=== PATIENT | male | born 1945 | race Caucasian/White ===

== ENCOUNTER 2021-07-06 14:05 | Emergency (ER) | payer MEDICARE, OTHER ==
[~2021-07-06] VITALS: Ht 172.7 cm; Wt 85.4 kg
--- OUTSIDE RECORDS SUMMARY | 2021-07-06 14:37 | XMS REPORT | Encounter Summary ---
Author Author [facility] FILIPE gallegos Organization [facility] Address Unknown Phone Unavailable Care Team Providers Care Synoptic Meteorologist Name Role Phone NOLVIA NOEL PCP Unavailable Insurance Providers: All historical and current Section Date Range: From patient's date of to the date document was create d. This section includes the names of all active insurance providers for the janie nguyen Insurance Provider Type of Coverage Plan Name Start of Policy [place] End of Policy Coverage Group Number Member ID Insurance Provider's Telephone N umber Policy Cedillo's Name Patient's Relationship to Policy Cedillo [facility] PLAN B Nov 13, 2001 [id number] [phone] MARELY FARRELL SPOUSE [place] ([id number]) PRESCRIPTION [place] [employer] Mar 05, 2003 [id number] [phone] MARELY FARRELL SPOUSE [place] [employer] [facility] Mar 05, 2003 [id number] [phone] MARELY FARRELL SPOUSE MEDICARE (WNR) MEDICARE (M) PART A Sep 13, 2001 PART A [id number] [phone] FILIPE FARRELL PATIENT MEDICARE (WNR) MEDICARE (M) PART B Sep 13, 2001 PART B [id number] [phone] FILIPE FARRELL PATIENT MEDICARE (WNR) MEDICARE (M) PART A Sep 13, 2001 PART A [id number] [phone] HAYES FARRELLY PATIENT MEDICARE (WNR) MEDICARE (M) PART B Sep 13, 2001 PART B [id number] [phone] FILIPE FARRELL PATIENT MEDICARE (WNR) MEDICARE (M) PART A Sep 13, 2001 PART A [id number] [phone] FILIPE FARRELL PATIENT MEDICARE (WNR) MEDICARE (M) PART B Sep 13, 2001 PART B [id number] [phone] FILIPE FARRELL PATIENT Selected Encounter This section includes the information on record at [place] for the Encounter. Date/Time Encounter Type Encounter Description Reason Provider Source Jul 06, 2021 11:00 AM Outpatient [facility] Encounter Template Text not used by [place] Assessments - Encounter Diagnoses No Data Provided for This Section Plan of Treatment: Future Appointments (+ 6 months) and Future Tests (+/- 45 day s) The Plan of Treatment section includes future care activities for the patient fr om all [place] treatment facilities. This section includes future appointments and fu ture orders which are active, pending or scheduled. Future Appointments This section includes appointments that were scheduled t o occur 6 months from the date of the Encounter, up to a maximum of 20 appointme nts. The data comes from all [place] treatment [facility]. Appointment Date/Time Appointment Type Appointment Facili ty Name Jul 07, 2021 03:30 PM AMBULATORY - MEDICINE [facility] Surgical Procedures: All associated to the encounter No Data Provided for This Section Lab Results: +/- 30 days of the encounter No Data Provided for This Section Vital Signs: All taken on the encounter date This section contains inpatient and outpatient Vital Signs collected on the date of the Encounter. Date/Time Temperature Pulse Blood Pressure Respiratory Rate SP02 Pa in Height Weight Body Mass Index Source Jul 06, 2021 09:13 AM 8 [facility] Immunizations: All administered on the encounter date No Data Provided for This Section Social History: Smoking Status (Most current) and Tobacco Use (All prior to enco unter date) This section includes the most current, and the historical, smoking and tobacco- related health factors from the [place] facility where the Encounter took place. Current Smoking Status This section includes the most current smoking, or tobacco -related health factor, from the [place] facility where the Encounter took place. Date/Time Current Smoking Status Comment Facility Jul 06, 2021 11:00 AM MS-TOBACCO FORMER USER [facility] Tobacco Use History This section includes a history of the smoking, or tobacco -related health factors, that were collected on or before the date of the Encoun ter. The data comes from the [place] facility where the Encounter took place. Date/Time Smoking Status/Tobacco Use Comment Facil rodgery Jul 06, 2021 11:00 AM VA-TOBACCO QUIT 15 YRS OR MORE [facility] Apr 14, 2020 12:03 PM V16 TOBACCO USE SCREEN [facility] Apr 14, 2020 12:03 PM VA-TOBACCO FORMER USER [facility] Apr 14, 2020 12:03 PM VA-TOBACCO QUIT 15 YRS OR MORE [facility] April 09, 2019 10:21 AM V16 TOBACCO [facility]CREEN [facility] April 09, 2019 10:21 AM VA-TOBACCO FORMER USER [facility] April 09, 2019 10:21 AM MS-TOBACCO QUIT 15 YRS OR MORE [facility] Advance Directives: All historical and current No Data Provided for This Section Radiology Reports: +/- 30 days of the encounter No Data Provided for This Section Pathology Reports: +/- 30 days of the encounter No Data Provided for This Section Encounter Notes: All associated encounter notes This section contains the clinical notes associated to the Encounter. Date/Time Encounter Note(s) Provider Source Jul 05, 2021 03:15 PM ADMINISTRATIVE NOTE: LOCAL TITLE: SCHEDULING NOTE STANDARD TITLE: ADMINISTRATIVE NOTE DATE OF NOTE: JUL 05, 2021@15:15 ENTRY DATE: JUL 05, 2021@15:15:15 AUTHOR: OMARI LADD COSIGNER: URGENCY: STATUS: COMPLETED [place] was called in relation to 07/06 appointment change of appt modality. He was left a Voicemail requsting call back for this request change to #Tele /es/ OMARI LADD [facility] Signed: 07/05/2021 15:16 [facility]MARI LADD [facility]
--- OUTSIDE RECORDS SUMMARY | 2021-07-06 14:37 | XMS REPORT | Encounter Summary ---
Author Author Department [facility] FILIPE gallegos Organization Department [facility] Address Unknown Phone Unavailable Care Team Providers Care Turbogenerator Operator Name Role Phone NOLVIA NOEL PCP Unavailable [...] Cedillo's Name Patient's Relationship to Policy Ced[facility] PLAN B Nov 13, 2001 [id number] [phone] MAURA FARRELL SPOUSE [place] ([id number]) PRESCRIPTION [place] EMPLOYEE Mar 05, 2003 [id number] [phone] MAURA FARRELL SPOUSE [place] [facility]ANCE [facility] Mar 05, 2003 [id number] [id number] [phone] MAURA FARRELL SPOUSE MEDICARE (WNR) MEDICARE (M) PART A Sep 13, 2001 PART A [id number] [phone] FIILPE FARRELL PATIENT MEDICARE (WNR) MEDICARE (M) PART B Sep 13, 2001 PART B [id number] 42A [phone] HAYES FARRELLY PATIENT MEDICARE (WNR) MEDICARE (M) PART A Sep 13, 2001 PART A [id number] [phone] BUDHAYESY PATIENT MEDICARE (WNR) MEDICARE (M) PART B Sep 13, 2001 PART B [id number] 42A [phone] FILIPE FARRELL PATIENT MEDICARE (WNR) MEDICARE (M) PART A Sep 13, 2001 PART A [id number] 42A [phone] FILIPE FARRELL PATIENT MEDICARE (WNR) MEDICARE (M) PART B Sep 13, 2001 PART B [id number] [phone] FILIPE FARRELL PATIENT Selected Encounter This section includes the information on record at [place] for the Encounter. Date/Time Encounter Type Encounter Description Reason Provider Source Jul 06, 2021 11:00 AM Outpatient Encounter TELEPHONE ICD-1 0-CM F43.12 Post- traumatic stress disorder, chronic with Provider Comments: Chronic post- traumatic stress disorder (SNOMED CT 976583059) TOD SCHNEIDER Elizabeth Encounter Template Text not used by MS Assessments - Encounter Diagnoses This section includes the primary and secondary diag noses documented for the Encounter. Date/Time Primary/Secondary Diagnosis Diagnosis Name Provider Source Jul 06, 2021 11:00 AM PRIMARY Post-traumatic stress diso rder, chronic TOD SCHNEIDER [facility] Jul 06, 2021 11:00 AM SECONDARY Major depressive d isorder, recurrent, [facility] Plan of Treatment: Future Appointments (+ 6 [...] The data comes from all [place] treatment facilities. Appointment Date/Time Appointment Type Appointment Facili ty Name Jul 07, 2021 03:30 PM AMBULATORY - MEDICINE [facility] Surgical Procedures: All associated to the encounter [...] Index Source Jul 06, 2021 09:[address] [place] [address] Immunizations: All administered on the encounter date [...] Comment Facility Jul 06, 2021 11:00 AM VA-TOBACCO FORMER USER [facility] Tobacco Use History This section includes a history of the smoking, or tobacco -related health factors, that were collected on or before the date of the Encoun ter. The data comes from the [place] facility where the Encounter took place. Date/Time Smoking Status/Tobacco Use Comment [facility] Jul 06, 2021 11:00 AM VA-TOBACCO QUIT 15 YRS OR MORE [facility] Apr 14, 2020 12:03 PM V16 TOBACCO USE [facility] Apr 14, 2020 12:03 PM VA-TOBACCO FOR[facility] Apr 14, 2020 12:03 PM VA-TOBACCO QUIT 15 YRS OR MORE [facility] April 09, 2019 10:21 AM V16 TOBACCO [facility]CREEN [facility] April 09, 2019 10:21 AM VA-TOBACCO FORMER USER [facility] April 09, 2019 10:21 AM VA-TOBACCO QUIT 15 YRS OR MORE [facility] Advance Directives: All historical and current No Data Provided for This Section Radiology Reports: +/- 30 days of the encounter No Data Provided for This Section Pathology Reports: +/- 30 days of the encounter No Data Provided for This Section Encounter Notes: All associated encounter notes This section contains the clinical notes associated to the Encounter. Date/Time Encounter Note(s) Provider Source Jul 06, 2021 11:00 AM PSYCHIATRY TELEPHONE ENCOUNT ER NOTE: LOCAL TITLE: TELECARE-PSYCHIATRY STANDARD TITLE: PSYCHIATRY TELEPHONE ENCOUNTER NOTE DATE OF NOTE: JUL 06, 2021@11:00 ENTRY DATE: JUL 06, 2021@11:16:06 AUTHOR: TOD SCHNEIDER COSIGNER: URGENCY: STATUS: COMPLETED PATIENT NAME: FILIPE FARRELL SSN: [id number] FUTURE APPOINTMENTS: No Scheduled Appointments at this time. PATIENT'S HOME PHONE: REASON FOR CALL: f/u DIAGNOSIS: ptsd TIME: 1100 PSYCHIATRIC PROGRESS NOTE Patient Identifiers: [x] Name [x] SS# [x] CC: PTSD INTERVAL HISTORY AND CURRENT ISSUES: 76 year old MALE is interviewed in f/u c are over telephone due to COVID precautions. 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 He reports compliance with psychotropic medication over the interim, tolerating sertraline well. Continues to feel it helps maintain stable mood and anxiety. He has had COVID 19 vaccination, and is not as isolative as he had been last through the past year. His daughter had come to visit, and he had driven her back to the airport in [place] several weeks ago. He feels he is sleeping well, tolerating stressors well and in good spirits. He is reporting pain in rt lower leg worse when ambulating that has started about 4-5 days ago and worsening. This was passed along to primary care team by MH nurse, and need to f/u on this was re-emphasized by the author. He feels everything is going relatively well, does not think needs any changes in MH treatment plan at this time. Denies SI, HI ,AVH or sxs of bon. Past, Family, and Social History: Originally from [facility] [facility]. 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 He is > 40 yrs , has adult children. Lives in own home in [place]. Active Outpatient Medications (excluding Supplies): Active Outpatient Medications Status 1) ACCU-CHEK GUIDE (GLUCOSE) TEST STRI P USE 1 STRIP FOR ACTIVE TESTING TWICE A DAY TO TEST BLOOD GLUCOSE 2) ACCU-CHEK GUIDE ME GLUCOMETER USE A S DIRECTED ACTIVE 3) ACCU-CHEK GUIDE(GLUCOSE)HI/LO CNTRL SOLN USE DROP(S) ACTIVE DIRECTED TO CALIBRATE GLUCOMETER 4) AMLODIPINE 5MG TAB TAKE ONE-HALF T ABLET BY MOUTH ACTIVE ONCE DAILY -DO NOT TAKE WITH GRAPEFRUIT JUICE- FOR BLOOD PRESSURE 5) ATENOLOL 50MG TAB TAKE ONE TABLET BY MOUTH ONCE ACTIVE DAILY FOR BLOOD PRESSURE / HEART 6) CHOLECALCIF 25MCG (D3-1,000UNIT) TA B TAKE TWO TABLETS ACTIVE BY MOUTH ONCE DAILY 7) CLOBETASOL PROPIONATE 0.05% OINT AP PLY SMALL AMOUNT ACTIVE TOPICALLY ONCE DAILY APPLY TO AFFECTED AREA UNTIL HEALED 8) GABAPENTIN 300MG CAP TAKE THREE CAP SULES BY MOUTH AT ACTIVE BEDTIME -(MAY CAUSE DROWSINESS) 9) INSULIN GLARGINE U-100 10ML/VIAL IN JECT 42 UNITS ACTIVE SUBCUTANEOUSLY AT BEDTIME FOR DIABETES (SHIP REFRIGERATED) 10) LISINOPRIL 5MG TAB TAKE ONE TABLET BY MOUTH EVERY ACTIVE MORNING FOR BLOOD PRESSURE TO PROTECT KIDNEYS 11) MAGNESIUM OXIDE 420MG TAB TAKE ONE TABLET BY MOUTH AT ACTIVE BEDTIME TAKE WITH FOOD 12) ROSUVASTATIN CA 40MG TAB TAKE ONE T ABLET BY MOUTH AT ACTIVE (S) BEDTIME FOR CHOLESTEROL REDUCTION 13) SERTRALINE 100MG TAB TAKE ONE AND O NE-HALF TABLETS BY ACTIVE MOUTH AT BEDTIME FOR DEPRESSION AND NERVES. Active Non-VA Medications Status 1) Non-VA ASPIRIN 325MG EC TAB 325MG M OUTH ONCE DAILY ACTIVE 2) Non-VA GLUCOSAMINE CAP/TAB ACTIVE 3) Non-VA MULTIVITAMINS TAB MOUTH ONC E DAILY ACTIVE 16 Total Medications Allergies: PENICILLIN, DOXEPIN, METFORMIN REVIEW OF SYSTEMS: Chronic back pain, lower leg pain MENTAL STATUS EXAM: Patient is an adult male. He is alert and oriented x3. Cooperative with the exam. Verbal affect is congruent with stated mood Speech is fluent, at normal rate and rhythm, non-pressured. Thought processes are grossly organized, logical and appopriate to topic. Denies any active suicidal ideation, hallucinations, or delusional beliefs. Intelligence appears to be average, insight adequate for the situation. Concentration and memory are grossly intact. . DIAGNOSIS (DSM-5): Chronic PTSD Depression Lab: [x ] N/A [ ] Results pending [ ] Reviewed with [ ] Ordered for next visit Suicide Risk Assessment: [x ] Completed Today [ ] Due ASSESSMENT OF TREATMENT EFFECTIVENESS AND TREATMENT PLAN: Patient with chronic anxiety/depressive sxs, fairly stable mood/anxiety over the interim - Will continue current med regimen to s upport ongoing stabilizing benefits. - Encouraged ongoing efforts in therapeu tic activities - Advised to contact primary care team i f not contacted by them this afternoon, in regards to possible DVT FOLLOWUP: 3 months Supportive therapy and education given regarding medications and stressors. Total time in teleconference, E/M; 25 minutes /anisa/ TOD SCHNEIDER PSYCHIATRIST Signed: 07/06/2021 13:50 TOD SCHNEIDER [facility] Jul 06, 2021 11:00 AM MEDICATION MGT NOTE: LOCAL TITLE: MEDICATION RECONCILIATION (PROVIDER) STANDARD TITLE: MEDICATION MGT NOTE DATE OF NOTE: JUL 06, 2021@11:00 ENTRY DATE: JUL 06, 2021@13:51:11 AUTHOR: TOD SCHNEIDER EXP COSIGNER: URGENCY: STATUS: COMPLETED Medication Reconciliation COMPLETED (Outpatient): NO medication additions, deletions, dosage changes OR duplications were identified. This Medication Reconciliation note and Patient Medication Information Cover Sheet were reviewed with the patient and/or caregiver and all questions answered. A copy of this note was given to or mailed to patient and/or caregiver at the end of this visit. Remote and Local Allergies: FACILITY ALLERGY/ADR -------- [facility] DOXEPIN [facility] METFORMIN [facility] PENICILLIN [facility] NO KNOWN ALLERGIES A list of active and pending outpatient prescriptions dispensed from this local MS and dispensed remotely from another MS or DoD facility as well as local, pending and active inpatient orders, local clinic medications, locally documented non-VA medications, and local prescriptions that have or been discontinued in the past 90 days has been generated below. If the list for review does not include a component, then it was not applicable to this patient. Active Outpatient Medications (excluding Supplies): Active Outpatient Medications Status 1) ACCU-CHEK GUIDE (GLUCOSE) TEST STRIP USE 1 STRIP FOR ACTIVE TESTING TWICE A DAY TO TEST BLOOD GLUCOSE 2) ACCU-CHEK GUIDE ME GLUCOMETER USE DIRECTED ACTIVE 3) ACCU-CHEK GUIDE(GLUCOSE)HI/LO CNTRL SOLN USE DROP(S) ACTIVE DIRECTED TO CALIBRATE GLUCOMETER 4) AMLODIPINE 5MG TAB TAKE ONE-HALF TABLET BY MOUTH ACTIVE (S) ONCE DAILY -DO NOT TAKE WITH GRAPEFRUIT JUICE- FOR BLOOD PRESSURE 5) ATENOLOL 50MG TAB TAKE ONE TABLET BY MOUTH ONCE ACTIVE (S) DAILY FOR BLOOD PRESSURE / HEART 6) CHOLECALCIF 25MCG (D3-1,000UNIT) TAB TAKE TWO TABLETS ACTIVE BY MOUTH ONCE DAILY 7) CLOBETASOL PROPIONATE 0.05% OINT APPLY SMALL AMOUNT ACTIVE TOPICALLY ONCE DAILY APPLY TO AFFECTED AREA UNTIL HEALED 8) GABAPENTIN 300MG CAP TAKE THREE CAPSULES BY MOUTH AT ACTIVE BEDTIME -(MAY CAUSE DROWSINESS) 9) INSULIN GLARGINE U-100 10ML/VIAL INJECT 42 UNITS ACTIVE (S) SUBCUTANEOUSLY AT BEDTIME FOR DIABETES (SHIP REFRIGERATED) 10) LISINOPRIL 5MG TAB TAKE ONE TABLET BY MOUTH EVERY ACTIVE MORNING FOR BLOOD PRESSURE TO PROTECT KIDNEYS 11) MAGNESIUM OXIDE 420MG TAB TAKE ONE TABLET BY MOUTH AT ACTIVE BEDTIME TAKE WITH FOOD 12) ROSUVASTATIN CA 40MG TAB TAKE ONE TABLET BY MOUTH AT ACTIVE (S) BEDTIME FOR CHOLESTEROL REDUCTION 13) SERTRALINE 100MG TAB TAKE ONE AND ONE-HALF TABLETS BY ACTIVE MOUTH AT BEDTIME FOR DEPRESSION AND NERVES. Active Non-VA Medications Status 1) Non-VA ASPIRIN 325MG EC TAB 325MG MOUTH ONCE DAILY ACTIVE 2) Non-VA GLUCOSAMINE CAP/TAB ACTIVE 3) Non-VA MULTIVITAMINS TAB MOUTH ONCE DAILY ACTIVE 16 Total Medications No Active Remote Medications for this patient /es/ OTD SCHNEIDER PSYCHIATRIST Signed: 07/06/2021 13:51 TOD SCHNEIDER [facility] Jul 06, 2021 11:00 AM SUICIDE PREVENTION RISK ASSE SSMENT SCREENING NOTE: LOCAL TITLE: SUICIDE RISK SCREENER-SECONDARY STANDARD TITLE: SUICIDE PREVENTION RISK ASSESSMENT SCREENING NOT DATE OF NOTE: JUL 06, 2021@11:00 ENTRY DATE: JUL 06, 2021@13:51:48 AUTHOR: TOD SCHNEIDER EXP COSIGNER: URGENCY: STATUS: COMPLETED [place]-Suicide Severity Rating Scale (C-SSRS Screener) 1. Over the past month, have you wished you were or wished you could go to sleep and not wake up? No 2. Over the past month, have you had any actual thoughts of killing yourself? No 3. Over the past month, have you been thinking about how you might do this? Response not required due to responses to other questions. 4. Over the past month, have you had these thoughts and had some intention of acting on them? Response not required due to responses to other questions. 5. Over the past month, have you started to work out or worked out the details of how to kill yourself? Response not required due to responses to other questions. 6. If yes, at any time in the past month did you intend to carry out this plan? Response not required due to responses to other questions. 7. In your lifetime, have you ever done anything, started to do anything, or prepared to do anything to end your life (for example, collected pills, obtained a gun, gave away valuables, went to the roof but didn't jump)? No 8. If YES, was this within the past 3 months? Response not required due to responses to other questions. /anisa/ TOD SCHNEIDER PSYCHIATRIST Signed: 07/06/2021 13:52 TOD SCHNEIDER [facility] Jul 06, 2021 10:11 AM ADMINISTRATIVE NOTE: LOCAL TITLE: HIPAA PRIVACY RELEASE STANDARD TITLE: ADMINISTRATIVE NOTE DATE OF NOTE: JUL 06, 2021@10:11 ENTRY DATE: JUL 06, 2021@10:11:59 AUTHOR: YARY BARRERA EXP COSIGNER: URGENCY: STATUS: COMPLETED Verbal consent obtained. Date: Jun This release is in effect for a period of 1 year. The following type of information may be discussed: appointment information, lab results, plan of care, treatment options, test results, condition , diagnosis, list of medications, address/phone number/emergency contact in case home care is to be provided People authorized to receive above information: Maura Farrell () [phone] Amanda Ortiz (daughter) [phone] I give permission to provide medical information, my home address, and my phone number in the coordination of my home health care: YES I give permission for message (including medical information) to be left on my answering machine: Yes /es/ YARY BARRERA RN PRIMARY CARE REGISTERED NURSE-SLAVA Signed: 07/06/2021 10:13 YARY BARRERA [facility] Jul 06, 2021 08:58 AM MENTAL HEALTH NURSING NOTE: LOCAL TITLE: MENTAL HEALTH NURSE INTAKE STANDARD TITLE: MENTAL HEALTH NURSING NOTE DATE OF NOTE: JUL 06, 2021@08:58 ENTRY DATE: JUL 06, 2021@08:58:53 AUTHOR: YARY BARRERA EXP COSIGNER: URGENCY: STATUS: COMPLETED MENTAL HEALTH NURSE INTAKE Has ADDENDA SUBJECTIVE:Pre telephone appt call for for MH Intake. is alert, oriented and pleasant. Denies HI/SI. [place] is c/o pain in the right LE from the knee down to the ankle for the past 4 days. Worse when he gets up and walks on it. No know injury. Denies any lumps/bumps or raised areas and denies redness or warmth on the leg, but states "I don't know what it is, sometimes it feels like a I have a bug on my leg, but then there is nothing there." reports he does have some swelling in the ankle area that is new. A call was placed to [facility] and requested a call to the regarding c/o. Will alert both Ernst De La Fuente and Marquise on this note for f/u with . The [place]'s phone number and address:[address] [place] [address] [address], [facility]. The 's present location:home The 's emergency contact name and phone number:Maura (spouse) same number has verbally consented to telehealth; alternatives for obtaining care through in-person visit and right of refusal at any time have been explained. agreed to services today. Coronavirus Disease 2019 (COVID-19) Screen The patient was asked if in the last 14 days they have had new onset of any COVID-19 symptoms. They report the following: No symptoms Within the past 14 days, the patient reports no exposure to someone with a febrile/respiratory illness or someone with a known or suspected case of COVID-19 (within 6 feet for > 15 minutes). Result: Screen is negative. Educated the regarding good handwashing, social distancing and avoid going out unless absolutely necessary to avoid possibilty of exposure to the Virus.[place] voiced understanding and is agreeable with the plan. BP: 138/63 (02/02/2021 11:07) Pain: 6 (02/02/2021 11:49) Height: 68 in [172.7 cm] (02/02/2021 11:07) Weight: 197 lb [89.5 kg] (02/02/2021 11:07) Pulse: 56 (02/02/2021 11:07) Respiration: 18 (02/02/2021 11:07) Temperature: 97.5 F [36.4 C] (02/02/2021 11:07) ALLERGIES:PENICILLIN, DOXEPIN, METFORMIN DEPRESSION SCREEN: ()Positive (x)Negative If positive, ()New/Untreated Depression SUICIDAL: (x)No ()Yes If Yes, does patient have a plan? ()Yes ()No PAIN: []No [x]Yes []Chronic or []Acute; Present Pain Level: 8 ) Comfort Level Scale (0-10):2 TOBACCO: (x)No ()Yes-Counseled for cessation. Has the patient traveled outside the [place] within the past 30 days? No If yes, where has the patient traveled? DIAGNOSIS: MH Intake TIME: 858 Organ Donor (Nurse): Patient states he/she is not currently registered with a Regional Organ Recovery Agency. Patient declines to be an organ donor. PTSD Screening: PC-PTSD-5 A PTSD screening test (PC-PTSD-5) was negative (score=2). Have you ever had any experience that was so frightening, horrible or upsetting that, IN THE PAST MONTH, you: Have you ever experienced this kind of event? YES 1. Had nightmares about the event(s) or thought about the event(s) when you did not want to? NO 2. Tried hard not to think about the event(s) or went out of your way to avoid situations that reminded you of the event(s)? YES 3. Been constantly on guard, watchful, or easily startled? YES 4. Somers numb or detached from people, activities, or your surroundings? NO 5. [place] guilty or unable to stop blaming yourself or others for the event(s) or any problems the event(s) may have caused? NO Alcohol Use Screen (AUDIT-C): Alcohol Screen: SCREEN FOR ALCOHOL (AUDIT-C) An alcohol screening test (AUDIT-C) was negative (score=1). 1. How often did you have a drink containing alcohol in the past year? Monthly or less 2. How many drinks containing alcohol did you have on a typical day when you were drinking in the past year? One or two drinks 3. How often did you have six or more drinks on one occasion in the past year? Never Daily Aspirin (Nurse): Patient takes daily aspirin. Pain Evaluation (Nurse): PAIN EVALUATION: Clinic Location: Mental Health Patient reports having pain today. Patient reports Primary Care Provider is NOT aware of pain. Comment: contacted PC MADINA De La Fuente and requested he call the back to discuss Pain Screening Tool utilized: DoD/VA Pain Scale This pain has been present for: Less than 1 week. Comment: new onset right lower leg and knee pain x 4days Pain description: Comment: ache and "hurts" Patient wants pain addressed. Comment: Call pt PC to contact Education Topics for patient/family/significant other: Reporting increased/unrelieved pain. Level of Understanding: Good Tobacco Use Screening: The patient is a former tobacco user. The patient quit fifteen or more years ago. /anisa/ YARY BARRERA RN PRIMARY CARE REGISTERED NURSE-SLAVA Signed: 07/06/2021 09:21 Receipt Acknowledged By: 07/06/2021 09:51 /anisa/ ANGELITO DE LA FUENTE LPN PRIMARY CARE [facility] * AWAITING SIGNATURE * ELIZABETH TENORIO 07/06/2021 ADDENDUM STATUS: COMPLETED attempted to contact multiple times. Call went directly to . [facility] with team 3 contact information. /charles DE LA FUENTE LPN PRIMARY CARE [facility] Signed: 07/06/2021 09:52 07/06/2021 ADDENDUM STATUS: COMPLETED Made second attemp to contact [place], directly to , requested a return call to team, number provided /charles GRESHAM, CRIME SCENE EXAMINER SLAVA Signed: 07/06/2021 11:12 YARY BARRERA [facility]
--- OUTSIDE RECORDS SUMMARY | 2021-07-06 14:37 | XMS REPORT | Encounter Summary ---
Author Author Department [facility] FILIPE gallegos Organization Department [facility] Address Unknown Phone Unavailable Care Team Providers Care Acoustical Tile Carpenters Supervisor Name Role Phone NOLVIA NOEL PCP Unavailable [...] Cedillo's Name Patient's Relationship to Policy Cedillo [facility] MEDICAL [facility] PLAN B Nov 13, 2001 [id number] [phone] MARELY FARRELL SP[employer]SE [employer] ([id number]) PRESCRIPTION [place] [employer] EMPLOYEE Mar 05, 2003 [id number] [phone] MARELY FARRELL SPOUSE [employer] [employer] [facility] Mar 05, 2003 [phone] [phone] MARELY FARRELL SPOUSE MEDICARE (WNR) MEDICARE (M) PART A Sep 13, 2001 PART A [id number] 42A [phone] BUDFILIPE PATIENT MEDICARE (WNR) MEDICARE (M) PART B Sep 13, 2001 PART B [id number] [id number] FILIPE FARRELL PATIENT MEDICARE (WNR) MEDICARE (M) PART A Sep 13, 2001 PART A [id number] [phone] FILIPE FARRELL PATIENT MEDICARE (WNR) MEDICARE (M) PART B Sep 13, 2001 PART B [id number] 42A [phone] FILIPE FARRELL PATIENT MEDICARE (WNR) MEDICARE (M) PART A Sep 13, 2001 PART A [id number] 42A [phone] FILIPE FARRELL PATIENT MEDICARE (WNR) MEDICARE (M) PART B Sep 13, 2001 PART B [id number] 42A [id number] FILIPE FARRELL PATIENT Selected Encounter This section includes the information on record at [place] for the Encounter. Date/Time Encounter Type Encounter Description Reason Provider Source Feb 28, 2021 01:42 PM Outpatient Encounter ADMIN PAT ACTIVTIES (MAS NONCT) EMERY RIGGINS IHElizabeth Encounter Template Text not used by [place] Assessments - Encounter Diagnoses No Data Provided for This Section Plan of Treatment: Future Appointments (+ 6 months) and Future Tests (+/- 45 day s) The Plan of Treatment section includes future care activities for the patient fr om all [place] treatment facilities. This section includes future appointments and fu ture orders which are active, pending or scheduled. Future Appointments This section includes appointments that were scheduled t o occur 6 months from the date of the Encounter, up to a maximum of 20 appointme nts. The data comes from all [place] treatment [facility]. Appointment Date/Time Appointment Type Appointment Facili ty Name May 10, 2021 02:30 PM AMBULATORY - PSY[facility]IATRY [facility] Jul 06, 2021 11:00 AM AMBULATORY - PS[facility]ATRY [facility] Jul 07, 2021 03:30 PM AMBULATORY - MEDICINE [facility] Active, Pending, and Scheduled Orders This section includes a listing of several types of activ e, pending, and scheduled orders, including clinic medications orders, diagnosti c test orders, procedure orders and consult orders; where the start date of th e order is 45 days before the date of the Encounter or 45 days after the date o f the Encounter. The data comes from all [place] treatment [facility]. Test Date/Time Test Type Test Details Facility Name Feb 02, 2021 12:00 AM Laboratory - Chemistry Order OCCULT BL OOD FIT x1 SCREEN STOOL FECES SP ONE-TIME [facility] Surgical Procedures: All associated to the encounter No Data Provided for This Section Lab Results: +/- 30 days of the encounter This section includes the Chemistry and Hematology Lab R esults on record with [place] for the patient. Radiology Reports and Pathology Report s are provided separately, in subsequent sections. Lab Results This section contains the Chemistry/Hematology Results lyric t were resulted 30 days before or 30 days after the date of the Encounter. Date/Time Source Result Type Result - Unit Interpretation Reference Range Comment Feb 02, 2021 10:00 AM [facility] URINALYSIS Speci men Type: URINE No comment entered. Ordering Provider: NOLVIA NOEL Report Released Date/Time: Jan 14, 2021 10:10 AM Reporting Lab: [address] [id number] Performing Lab: [address] [id number]35 UA COLOR YELLOW COLORLESS-YELLOW UA SPEC GRAV 1.018 1.005-1.035 UA PH 5.5 PH 5-9 UA NITRITE NEG QUAL. Neg.-Neg UA UROBILINOGEN <2.0 mg/dL -Normal: <2 m g-dL UA APPEARANCE - CLEAR UA GLUCOSE 1+ QUAL NEG-TRACE UA PROTEIN - QUAL NEG UA BILI - QUAL NEG UA BLOOD - QUAL NEG-TRACE UA KETONES - QUAL NEG-TRACE UA LEUK EST NEG. Aida/uL NEG-74 Feb 02, 2021 10:00 AM [facility] B12 Speci men Type: SERUM No comment entered. Ordering Provider: NOLVIA NOEL Report Released Date/Time: Jan 14, 2021 10:10 AM Reporting Lab: [facility] [address] [facility] 7270 Performing Lab: [facility] [address] [facility] 7270 VITAMIN B12 (FV) 209 pg/mL 180-914 Feb 02, 2021 10:00 AM [facility] CBC Speci men Type: BLOOD No comment entered. Ordering Provider: NOLVIA NOEL Report Released Date/Time: Jan 14, 2021 10:10 AM Reporting Lab: [address] [id number] Performing Lab: [address] [id number]35 MPV (FV) 7.1 fL L 7.4-10.4 RDW (FV) 13.6 % 11.5-14.5 HCT (FV) 38.4 % L 40-52 HGB (FV) 13.0 g/dL 13-18 PLT (FV) 269 K/cmm 150-440 WBC (FV) 10.2 K/cmm 3.8-10.6 RBC (FV) 4.24 M/cmm L 4.4-5.9 MCV (FV) 90.6 fL 80-100 MCH (FV) 30.8 pg 26-34 MCHC (FV) 34.0 g/dL 32-36 NE% (FV) 57.8 % SEE ABSOLUTE # NE# (FV) 5.9 K/cmm 2.4-7.6 LY% (FV) 29.7 % SEE ABSOLUTE # LY# (FV) 3.0 K/cmm 1.0-4.8 MO% (FV) 7.2 % SEE ABSOLUTE # MO# (FV) 0.7 K/cmm 0.1-1.0 EO% (FV) 3.9 % SEE ABSOLUTE # EO# (FV) 0.4 K/cmm 0.0-0.4 BA% (FV) 1.4 % SEE ABSOLUTE # BA# (FV) 0.1 K/cmm 0.0-0.2 Feb 02, 2021 10:00 AM [facility] GLYCO HGB A1C Speci men Type: BLOOD No comment entered. Ordering Provider: NOLVIA NOEL Report Released Date/Time: Jan 14, 2021 10:10 AM Reporting Lab: [address] [id number] Performing Lab: [address] [address]0 [address]35 Glyco Hgb A1C 8.4 % H 4.2-5.8 Feb 02, 2021 10:00 AM [facility] LIPID PROFILE Speci men Type: SERUM No comment entered. Ordering Provider: NOLVIA NOEL Report Released Date/Time: Jan 14, 2021 10:10 AM Reporting Lab: [address] [id number] Performing Lab: [address] [address] CHOLESTEROL, TOTAL (FV) 279 mg/dL H 118-20 0 TRIGLYCERIDE (FV) 179 mg/dL H <150 LDL CHOLESTEROL (CALCULATED) 202 HDL CHOLESTEROL (FV) 41 mg/dL >40 Feb 02, 2021 10:00 AM [facility] MAGNESIUM Speci men Type: SERUM No comment entered. Ordering Provider: NOLVIA NOEL Report Released Date/Time: Jan 14, 2021 10:10 AM Reporting Lab: [address] [id number] Performing Lab: [address] [id number] MAGNESIUM (FV) 1.6 mg/dL L 1.8-2.4 Feb 02, 2021 10:00 AM [facility] VITAMIN D 25-OH Spec imen Type: SERUM No comment entered. Ordering Provider: NOLVIA NOEL Report Released Date/Time: Jan 14, 2021 10:10 AM Reporting Lab: [facility] [address] [facility] 7270 Performing Lab: [facility] [address] [facility] 7270 VITAMIN D 25-OH 58.53 ng/mL 10.4-59.4 Feb 02, 2021 10:00 AM [facility] RENAL+LIVER PROFILE Specimen Type: SERUM No comment entered. Ordering Provider: NOLVIA NOEL Report Released Date/Time: Jan 14, 2021 10:10 AM Reporting Lab: [address] [facility] [id number] [phone] Performing Lab: [address] [id number] GLUCOSE (FV) 124 mg/dL H 70-110 ALBUMIN (FV) 3.9 g/dL 3.4-5.0 AST (FV) 29 U/L 15-37 TOTAL BILIRUBIN (FV) 0.50 mg/dL 0.3-1.2 CHLORIDE (FV) 101 mmol/L 98-107 TOTAL PROTEIN (FV) 8.0 g/dL H 6.1-7.9 SODIUM (FV) 137 mmol/L 136-145 POTASSIUM (FV) 4.2 mmol/L 3.5-5.1 CO2 (FV) 26 mmol/L 21-32 UREA NITROGEN (FV) 28 mg/dL H 6-20 CALCIUM (FV) 9.1 mg/dL 8.9-10.3 ALT (FV) 27 U/L 0-63 ALK. PHOS. (FV) 69 U/L 32-126 eGFR 36 CREATININE (FV) 1.85 mg/dL H .61-1.24 Feb 02, 2021 10:00 AM [facility] TSH (FV) Speci men Type: SERUM No comment entered. Ordering Provider: NOLVIA NOEL Report Released Date/Time: Jan 14, 2021 10:10 AM Reporting Lab: [facility] [address] [facility] 7270 Performing Lab: [facility] [address] [facility] 7270 TSH () 3.04 mcIU/mL 0.45-5.33 Vital Signs: All taken on the encounter date No Data Provided for This Section Immunizations: All administered on the encounter date This section contains immunizations associated to the Encounter. Immunization Series Date Issued Reaction Comments [id number] VACCINE REFUSAL R Feb 28, 2021 Social History: Smoking Status (Most current) and Tobacco Use (All prior to enco unter date) This section includes the most current, and the historical, smoking and tobacco- related health factors from the [place] facility where the Encounter took place. Current Smoking Status This section includes the most current smoking, or tobacco -related health factor, from the [place] facility where the Encounter took place. Date/Time Current Smoking Status Comment Facility March 18, 2009 09:30 AM V16 TOBACCO USE SCREEN [facility] Tobacco Use History This section includes a history of the smoking, or tobacco -related health factors, that were collected on or before the date of the Encoun ter. The data comes from the [place] facility where the Encounter took place. Date/Time Smoking Status/Tobacco Use Comment [facility] March 18, 2009 09:30 AM V16 [facility]CO [facility] Jan 15, 2008 10:28 AM V16 TOBACCO CESSATION >7 YEA RS 30 years [facility] Jan 15, 2008 10:28 AM V16 TOBACCO USE [facility]EN [facility] April 06, 2007 08:47 AM V16 TOBACCO CESSATION >7 YEARS DENNIS VELA [place] April 06, 2007 08:47 AM V16 TOBACCO USE SCREEN [facility] Oct 27, 2006 09:44 AM V16 TOBACCO CESSATION > 12 MONTHS RONY LAU [place] Oct 27, 2006 09:44 AM V16 TOBACCO USE SCREEN [facility] [place] May 08, 2006 11:26 AM TOBACCO CESSATION: >10 YEARS FAVIO AYALA [place] Apr 20, 2005 11:15 AM TOBACCO CESSATION: >10 YEARS [facility] [place] Feb 02, 2004 02:41 PM TOBACCO CESSATION: >10 YEARS [facility] [place] Apr 26, 2001 08:56 AM TOBACCO CESSATION: >10 YEARS FAVIO AYALA [place] Advance Directives: All historical and current No Data Provided for This Section Radiology Reports: +/- 30 days of the encounter Radiology Reports For cases when an order for radiology services may have bee n completed prior to the date of the Encounter, the report list includes the Rad iology Reports that were completed up to 30 days before date of the Encounter. F or cases when an order for radiology services may have been completed after the date of the Encounter, the report list also includes the Radiology Reports that were completed up to 30 days after date of the Encounter. The data comes from [facility] treatment facilities. Date/Time Radiology Report Provider Source Feb 02, 2021 12:09 PM SPINE LUMBOSACRAL MIN 6 VIEW S: FILIPE FARRELL [id number] -[id number] M Exm Date: FEB 02, 2021@12:09 Req Phys: NOLVIA NOEL Loc: [facility] TM 3 (Req'g Loc) Img Loc: [facility] Service: Unknown (Case [id number] COMPLETE) SPINE LUM BOSACRAL MIN 6 VIEWS (RAD Detailed) CPT:93125 Reason for Study: low back pain Clinical History: Report Status: Verified Date Reported: FEB 03, 2021 Date Verified: FEB 03, 2021 Mottler Operator E-Sig:/ES/ALICIA BARBOUR Report: PROCEDURE: SPINE LUMBOSACRAL MIN 6 VIEWS CLINICAL INDICATION: low back pain TECHNIQUE: Lumbar spine 7 views COMPARISON: 05/14/2019 FINDINGS: No acute lumbar spine fracture Stable moderate multilevel degenerative changes throughout the lumbar spine. Stable slight degenerative anterolisthesis L4 on L5 Impression: No acute lumbar spine fracture Stable moderate multilevel degenerative changes throughout the lumbar spine. Stable slight degenerative anterolisthesis L4 on L5 Primary Diagnostic Code: Minor Abnormality or Abn Prev Identified Primary Interpreting Staff: ALICIA BARBOUR, Staff Physician (Mottler Operator) /ALICIA [facility]US[facility]F [facility] Pathology Reports: +/- 30 days of the encounter No Data Provided for This Section Encounter Notes: All associated encounter notes This section contains the clinical notes associated to the Encounter. Date/Time Encounter Note(s) Provider Source Feb 28, 2021 01:42 PM ADMINISTRATIVE NOTE: LOCAL TITLE: COVID VACCINE SCHEDULING NOTE STANDARD TITLE: ADMINISTRATIVE NOTE DATE OF NOTE: FEB 28, 2021@13:42 ENTRY DATE: FEB 28, 2021@13:42:25 AUTHOR: EMERY RIGGINS EXP COSIGNER: URGENCY: STATUS: COMPLETED Called patient to schedule COVID Vaccine appointment Spoke with patient/other: see note from Jan 25 declines vaccine /anisa/ EMERY RIGGINS LPN PRIMARY CARE-PAPER REEL OPERATOR Signed: 02/28/2021 13:43 EMERY RIGGINS [facility]
--- OUTSIDE RECORDS SUMMARY | 2021-07-06 14:37 | XMS REPORT | Encounter Summary ---
Author Author Department [facility] FILIPE gallegos Organization Department [facility] Address Unknown Phone Unavailable Care Team Providers Care Brim Buster Name Role Phone NOLVIA NOEL PCP Unavailable [...] Cedillo's Name Patient's Relationship to Policy Cedillo [facility] MEDICAL [facility] PLAN B Nov 13, 2001 [id number] [phone] MARELY FARRELL SPOUSE [employer] ([id number]) PRESCRIPTION [place] [employer] EMPLOYEE Mar 05, 2003 [id number] [phone] MARELY FARRELL SPOUSE [place] [employer] D[employer] INSURANCE [facility] Mar 05, 2003 [id number] [phone] MARELY FARRELL SPOUSE MEDICARE (WNR) MEDICARE (M) PART A Sep 13, 2001 PART A [id number] [phone] HAYES FARRELLY PATIENT MEDICARE (WNR) MEDICARE (M) PART B Sep 13, 2001 PART B [id number] [phone] FILIPE FARRELL PATIENT MEDICARE (WNR) MEDICARE (M) PART A Sep 13, 2001 PART A [id number] [phone] FILIPE FARRELL PATIENT MEDICARE (WNR) MEDICARE (M) PART B Sep 13, 2001 PART B [id number] 42A [phone] FILIPE FARRELL PATIENT MEDICARE (WNR) MEDICARE (M) PART A Sep 13, 2001 PART A [id number] [phone] FILIPE FARRELL PATIENT MEDICARE (WNR) MEDICARE (M) PART B Sep 13, 2001 PART B [id number] 42A [phone] FILIPE FARRELL PATIENT Selected Encounter This section includes the information on record at [place] for the Encounter. Date/Time Encounter Type Encounter Description Reason Provider Source Jul 06, 2021 01:49 PM HC PRO PHONE CALL 11-20 MIN TELEPHONE PRIM VIJAY CARE ICD-10-CM Z71.89 Other specified counseling with Provider Comments: Counseling,Oth Specified ELIZABETH TENORIO Encounter Template Text not used by [place] Assessments - Encounter Diagnoses This section includes the primary and secondary diag noses documented for the Encounter. Date/Time Primary/Secondary Diagnosis Diagnosis Name Provider Source Jul 06, 2021 01:49 PM PRIMARY Other specified counseling ELIZABETH LEPE [facility] Plan of Treatment: Future Appointments (+ 6 months) and Future Tests (+/- 45 day s) The Plan of Treatment section includes future care activities for the patient fr om all [place] treatment facilities. This section includes future appointments and fu ture orders which are active, pending or scheduled. Future Appointments This section includes appointments that were scheduled t o occur 6 months from the date of the Encounter, up to a maximum of 20 appointme nts. The data comes from all [place] treatment facilities. Appointment Date/Time Appointment Type Appointment Facili ty Name Jul 07, 2021 03:30 PM [facility] Surgical Procedures: All associated to the encounter This section includes all Surgical Procedures and Surgical Procedure Notes assoc iated to the Encounter. Surgical Procedures This section includes all Surgical Procedures associated to the Encounter. Surgical Procedure Date/Time Procedure Procedure Type Procedure Qualifiers Provider Source Jul 06, 2021 01:49 PM PHONE CALL BY HC PROF 11-20 MIN HC PRO PHONE CALL 11-20 MIN ELIZABETH TENORIO [facility] Surgical Notes There are no notes associated with this procedure. Lab Results: +/- 30 days of the encounter No Data Provided for This Section Vital Signs: All taken on the encounter date This section contains inpatient and outpatient Vital Signs collected on the date of the Encounter. Date/Time Temperature Pulse Blood Pressure Respiratory Rate SP02 Pa in Height Weight Body Mass Index Source Jul 06, 2021 09:13 AM 8 [facility] Immunizations: All administered on the encounter date No Data Provided for This Section Social History: Smoking Status (Most current) and Tobacco Use (All prior to enco unter date) This section includes the most current, and the historical, smoking and tobacco- related health factors from the [place] facility where the Encounter took place. Current Smoking Status This section includes the most current smoking, or tobacco -related health factor, from the [place] facility where the Encounter took place. Date/Time Current Smoking Status Comment Facility Jul 06, 2021 11:00 AM VA-TOBACCO FORMER USER [place] [facility] Tobacco Use History This section includes a history of the smoking, or tobacco -related health factors, that were collected on or before the date of the Encoun ter. The data comes from the [place] facility where the Encounter took place. Date/Time Smoking Status/Tobacco Use Comment [facility] Jul 06, 2021 11:00 AM VA-TOBACCO QUIT 15 YRS OR MORE [facility] Apr 14, 2020 12:03 PM V16 TOBACCO [facility] Apr 14, 2020 12:03 PM VA-TOBACCO FORMER USER [facility] Apr 14, 2020 12:03 PM VA-TOBACCO QUIT 15 YRS OR MORE [facility]I N [facility] April 09, 2019 10:21 AM V16 TOBACCO USE SCREEN [facility] April 09, 2019 10:21 AM VA-TOBACCO FOR[facility] April 09, 2019 10:21 AM [place]-TOBACCO QUIT 15 YRS OR MORE [facility] Advance Directives: All historical and current [...] Encounter Note(s) Provider Source Jul 06, 2021 01:49 PM TELEPHONE ENCOUNTER NOTE: LOCAL TITLE: TELECARE STANDARD TITLE: TELEPHONE ENCOUNTER NOTE DATE OF NOTE: JUL 06, 2021@13:49 ENTRY DATE: JUL 06, 2021@13:49:28 AUTHOR: ELIZABETH TENORIO COSIGNER: URGENCY: STATUS: COMPLETED PATIENT NAME: FILIPE FARRELL SSN: [id number] FUTURE APPOINTMENTS: No future appointments PATIENT'S HOME PHONE: REASON FOR CALL: was contacted r/t a concern voiced during his mental health appt. [place] reports pain 7/10 behind his left knee and down into his left calf, states it is "pretty swollen and hard". Denies and chest pain or SOB, [place] lives in [facility], states he can not go to [facility], will report to [facility] in [place] for evaluation FOLLOW UP: notification made DIAGNOSIS: DVT TIME: 10 min (Patient has been instructed to go to [facility] Emergency Room or to seek care elsewhere. FINANCIAL DISCLAIMER was read to caller (x ) Yes ( ) Not Applicable) FINANCIAL DISCLAIMER: "This is not an authorization for [place] Payment" and also "Have hospital contact the nearest [place] Facility for transfer upon stabilization". /anisa/ ELIZABETH GRESHAM, REHABILITATION SERVICES COUNSELOR SLAVA Signed: 07/06/2021 14:09 ELIZABETH TENORIO [facility]
--- OUTSIDE RECORDS SUMMARY | 2021-07-06 14:38 | XMS REPORT | Encounter Summary ---
Author Author Department [facility] FILIPE gallegos Organization Department of [facility] Address Unknown Phone Unavailable Care Team Providers Care Job Press Feeder Name Role Phone NOLVIA NOEL PCP Unavailable [...] Cedillo's Name Patient's Relationship to Policy Cedillo [facility] MEDICAL [facility] PLAN B Nov 13, 2001 [id number] [phone] MARELY FARRELL SPOUSE [employer] ([id number]) [place] EMPL[employer]EE Mar 05, 2003 [id number] [phone] MARELY FARRELL SPOUSE [place] [employer]URANCE [facility] Mar 05, 2003 [phone] [phone] MARELY FARRELL SPOUSE MEDICARE (WNR) MEDICARE (M) PART A Sep 13, 2001 PART A [id number] 42A [phone] FILIPE FARRELL PATIENT MEDICARE (WNR) MEDICARE (M) PART B Sep 13, 2001 PART B [id number] 42A [phone] FILIPE FARRELL PATIENT MEDICARE (WNR) MEDICARE (M) PART A Sep 13, 2001 PART A [id number] [phone] FILIPE FARRELL PATIENT MEDICARE (WNR) MEDICARE (M) PART B Sep 13, 2001 PART B [id number] 42A [phone] FILIPE FARRELL PATIENT MEDICARE (WNR) MEDICARE (M) PART A Sep 13, 2001 PART A [id number] 42A [phone] FILIPE FARRELL PATIENT MEDICARE (WNR) MEDICARE (M) PART B Sep 13, 2001 PART B [id number] 42A [phone] FILIPE FARRELL PATIENT Selected Encounter This section includes the information on record at OR for the Encounter. Date/Time Encounter Type Encounter Description Reason Provider Source May 31, 2021 04:26 PM Outpatient Encounter TELEPHONE TRIAGE IHE Encounter Template Text not used by [place] Assessments - Encounter Diagnoses No Data Provided for This Section Plan of Treatment: Future Appointments (+ 6 months) and Future Tests (+/- 45 day s) The Plan of Treatment section includes future care activities for the patient fr om all [facility] facilities. This section includes future appointments and fu ture orders which are active, pending or scheduled. Future Appointments This section includes appointments that were scheduled t o occur 6 months from the date of the Encounter, up to a maximum of 20 appointme nts. The data comes from all [facility]. Appointment Date/Time Appointment Type Appointment Facili ty Name Jul 06, 2021 11:00 AM AMBULATORY - PS[facility]RY [facility] Jul 07, 2021 03:30 PM AMBULATORY - MEDICINE [facility] Active, Pending, and Scheduled Orders [...] the Encounter. The data comes from all [facility]. Test Date/Time Test Type Test Details Facility Name May 05, 2021 12:00 AM Laboratory - Chemistry Order GLYCO HGB A[facility]C [facility]LO[facility] May 05, 2021 12:00 AM Laboratory - Chemistry Order RENAL PRO FILE BLOOD SERUM SP ONE-TIME [facility] May 05, 2021 12:00 AM Laboratory - Chemistry Order CBC BLOOD S P [facility] May 05, 2021 12:00 AM Laboratory - Chemistry Order RENAL+ANDREY ER PROFILE BLOOD [facility] SP [facility] May 05, 2021 12:00 AM Laboratory - Chemistry Order URIC ACID BLOOD SERUM SP ONE-TIME [facility] May 05, 2021 12:00 AM Laboratory - Chemistry Order INTACT PT H (FV) BLOOD PLASMA SP ONE-TIME [facility] May 05, 2021 12:00 AM Laboratory - Chemistry Order PO4 BLOOD SER UM SP ONE-TIME [facility] May 05, 2021 12:00 AM Laboratory - Chemistry Order IRON (FV) BLOOD SERUM SP ONE-TIME [facility] May 05, 2021 12:00 AM Laboratory - Chemistry Order FERRITIN (FV) BLOOD SERUM SP ONE-TIME [facility] May 05, 2021 12:00 AM Laboratory - Chemistry Order URINALYSIS UR INE SP ONE-TIME [facility] May 05, 2021 12:00 AM Laboratory - Chemistry Order VITAMIN D 25-OH BLOOD SERUM SP ONE-TIME [facility] Surgical Procedures: All associated to the [...] and tobacco- related health factors from the [place] facility where the Encounter took place. Current Smoking Status This section includes the most current smoking, or tobacco -related health factor, from the [place] facility where the Encounter took place. Date/Time Current Smoking Status Comment Facility March 18, 2009 09:30 AM V16 TOBACCO USE SCREEN [facility] Tobacco Use History This section includes a history of the smoking, or tobacco -related health factors, that were collected on or before the date of the Encoun ter. The data comes from the [place] facility where the Encounter took place. Date/Time Smoking Status/Tobacco Use Comment [facility] March 18, 2009 09:30 AM V16 TOBACCO USE SCREEN [facility] [place] Jan 15, 2008 10:28 AM V16 TOBACCO CESSATION >7 YEA RS 30 years [facility] Jan 15, 2008 10:28 AM V16 TOBACCO USE SCREEN [facility] April 06, 2007 08:47 AM V16 TOBACCO CESSATION >7 YEARS [facility] [place] April 06, 2007 08:47 AM V16 TOBACCO USE SCREEN [place] Oct 27, 2006 09:44 AM V16 [...] the Encounter. Date/Time Encounter Note(s) Provider Source May 31, 2021 04:26 PM ADMINISTRATIVE NOTE: LOCAL TITLE: ADMINISTRATIVE NOTE STANDARD TITLE: ADMINISTRATIVE NOTE DATE OF NOTE: MAY 31, 2021@16:26 ENTRY DATE: MAY 31, 2021@16:26:13 AUTHOR: YEE LEARY EXP COSIGNER: URGENCY: STATUS: COMPLETED ADMINISTRATIVE NOTE Has ADDENDA PATIENT NAME: FILIPE FARRELL SSN: [id number] FUTURE APPOINTMENTS: Jun@11:00 CHANDA MCKEON MD 1 PATIENT'S HOME PHONE: CALL TAKEN BY: Yee Leary REASON FOR CALL: Mr. Farrell called, requesting sensors for his FreeStyle Cecil 2 Glucometer, that need to be changed every two weeks: "I have only one day left." /charles LEARY CONTROL ROOM TECHNICIAN-GASTON Signed: 05/31/2021 16:29 Receipt Acknowledged By: 06/01/2021 14:20 /charles [facility] 06/01/2021 ADDENDUM STATUS: COMPLETED Forwarding to Team RN /charles [facility] Signed: 06/01/2021 14:20 Receipt Acknowledged By: 06/03/2021 14:31 /anisa/ ELIZABETH GRESHAM, COMMERCIAL ENERGY RATER SLAVA 06/03/2021 ADDENDUM STATUS: COMPLETED reports he got his moniter while he was in the hospital, he is not interested in a moniter that the OR can issue and is not currently interested in a consult to endocrinology, but will let team know if he changes his mind /anisa/ ELIZABETH GRESHAM, COMMERCIAL ENERGY RATER SLAVA Signed: 06/03/2021 14:36 YEE LEARY [facility]
--- OUTSIDE RECORDS SUMMARY | 2021-07-06 14:38 | XMS REPORT | Encounter Summary ---
Author Author Department [facility] FILIPE gallegos Organization Department [facility] Address Unknown Phone Unavailable Care Team Providers Care Customer Supply Coordinator Name Role Phone NOLVIA NOEL PCP Unavailable [...] Cedillo's Name Patient's Relationship to Policy Cedillo [facility] PLAN B Nov 13, 2001 [id number] [phone] MARELY FARRELL SPOUSE [employer] ([id number]) [place] [employer] [place] Mar 05, 2003 [id number] [phone] MARELY FARRELL SPOUSE [place] [employer] DENTAL INSURANCE [facility] Mar 05, 2003 [id number] [phone] MARELY FARRELL SPOUSE MEDICARE (WNR) MEDICARE (M) PART A Sep 13, 2001 PART A [id number] 42A [phone] FILIPE FARRELL PATIENT MEDICARE (WNR) MEDICARE (M) PART B Sep 13, 2001 PART B [id number] 42A [phone] FILIPE FARRELL PATIENT MEDICARE (WNR) MEDICARE (M) PART A Sep 13, 2001 PART A [id number] 42A [phone] ALYCIAHAYES ROSAY PATIENT MEDICARE (WNR) MEDICARE (M) PART B Sep 13, 2001 PART B [id number] 42A [phone] FILIPE FARRELL PATIENT MEDICARE (WNR) MEDICARE (M) PART A Sep 13, 2001 PART A [id number] [id number] FILIPE FARRELL PATIENT MEDICARE (WNR) MEDICARE (M) PART B Sep 13, 2001 PART B [id number] 42A [phone] FILIPE FARRELL PATIENT Selected Encounter This section includes the information on record at [place] for the Encounter. Date/Time Encounter Type Encounter Description Reason Provider Source May 04, 2021 10:41 AM Outpatient Encounter PRIMARY CARE/MEDICINE IHE Encounter Template Text not used by [place] Assessments - Encounter Diagnoses No Data Provided for This Section Plan of Treatment: Future Appointments (+ 6 months) and Future Tests (+/- 45 day s) The Plan of Treatment section includes future care activities for the patient fr om all [facility]. This section includes future appointments and fu ture orders which are active, pending or scheduled. Future Appointments This section includes appointments that were scheduled t o occur 6 months from the date of the Encounter, up to a maximum of 20 appointme nts. The data comes from all [facility]. Appointment Date/Time Appointment Type Appointment Facili ty Name May 10, 2021 02:30 PM AMBULATORY - PSYCHIATRY [facility] Jul 06, 2021 11:00 AM AMBULATORY PSYCHIATRY [facility] Jul 07, 2021 03:30 PM AMBULATORY MEDICINE [facility] Active, Pending, and Scheduled Orders This [...] the Encounter. The data comes from all [facility]. Test Date/Time Test Type Test Details Facility Name May 05, 2021 12:00 AM Laboratory - Chemistry Order GLYCO HGB A1C BLOOD SP [facility] May 05, 2021 12:00 AM Laboratory - Chemistry Order RENAL PRO FILE BLOOD SERUM SP ONE-TIME [facility] May 05, 2021 12:00 AM Laboratory - Chemistry Order CBC BLOOD S P ONE-TIME [facility] May 05, 2021 12:00 AM Laboratory - Chemistry Order RENAL+ANDREY ER PROFILE BLOOD SERUM SP ONE-TIME [facility] May 05, 2021 12:00 AM Laboratory - Chemistry Order URIC ACID BLOOD SERUM SP ONE-TIME [facility] May 05, 2021 12:00 AM Laboratory - Chemistry Order INTACT PT H (FV) BLOOD PLASMA SP ONE-TIME [facility] May 05, 2021 12:00 AM Laboratory - Chemistry Order PO4 BLOOD SER UM SP ONE-TIME [facility] May 05, 2021 12:00 AM Laboratory - Chemistry Order IRON (FV) BLOOD SERUM SP ONE-TIME [facility] May 05, 2021 12:00 AM Laboratory - Chemistry Order FERRITIN (FV) BLOOD SERUM SP ONE-TIME [facility] May 05, 2021 12:00 AM Laboratory - Chemistry Order URINALYSIS UR INE SP ONE-TIME [facility] May 05, 2021 12:00 AM Laboratory - Chemistry Order VITAMIN D 25-OH BLOOD SERUM SP ONE-TIME [facility] Surgical Procedures: All associated to the encounter [...] and tobacco- related health factors from the [place] facility where the Encounter took place. Current Smoking Status This section includes the most current smoking, or tobacco -related health factor, from the [place] facility where the Encounter took place. Date/Time Current Smoking Status Comment Facility March 18, 2009 09:30 AM V16 TOBACCO USE SCREEN [facility] Tobacco Use History This section includes a history of the smoking, or tobacco -related health factors, that were collected on or before the date of the Encoun ter. The data comes from the [place] facility where the Encounter took place. Date/Time Smoking Status/Tobacco Use Comment [facility] it March 18, 2009 09:30 AM V16 TOBACCO USE SCREEN [facility] Jan 15, 2008 10:28 AM V16 TOBACCO CESSATION >7 YEA RS 30 years [facility] Jan 15, 2008 10:28 AM V16 TOBACCO USE SCREEN [place] April 06, 2007 08:47 AM V16 [...] Encounter. Date/Time Encounter Note(s) Provider Source May 04, 2021 10:41 AM ADMINISTRATIVE NOTE: LOCAL TITLE: SCHEDULING NOTE STANDARD TITLE: ADMINISTRATIVE NOTE DATE OF NOTE: MAY 04, 2021@10:41 ENTRY DATE: MAY 04, 2021@10:41:28 AUTHOR: SOMMER CHANDRA EXP COSIGNER: URGENCY: STATUS: COMPLETED called and requested to cancel his [place] appt on 05/05/21 due to his being sick. States he will call us back to reschedule A1C,RENAL,CBC,CMP,URIC ACID,PTH,PO4,IRON,FERRITIN,VID,UA PO 02/02/21 & 03/05/21 /anisa/ SOMMER CHANDRA [facility] ASST-SLAVA Signed: 05/04/2021 10:42 SOMMER CHANDRA [facility]
--- OUTSIDE RECORDS SUMMARY | 2021-07-06 14:38 | XMS REPORT | Encounter Summary ---
Author Author Department [facility] FILIPE gallegos Organization Department [facility] Address Unknown Phone Unavailable Care Team Providers Care Clinical Cytogeneticist Scientist Name Role Phone NOLVIA NOEL PCP Unavailable [...] Cedillo's Name Patient's Relationship to Policy [facility] B Nov 13, 2001 [id number] [phone] MARELY FARRELL SPOUSE [employer] ([id number]) [employer]CRIPTION [place] [employer] EM[employer]EE Mar 05, 2003 [id number] [phone] MARELY FARRELL SPOUSE [place] [employer]URANCE [facility] Mar 05, 2003 [id number] [phone] MARELY FARRELL SPOUSE MEDICARE (WNR) MEDICARE (M) PART A Sep 13, 2001 PART A [id number] [phone] FILIPE FARRELL PATIENT MEDICARE (WNR) MEDICARE (M) PART B Sep 13, 2001 PART B [id number] [phone] FILIPE FARRELL PATIENT MEDICARE (WNR) MEDICARE (M) PART A Sep 13, 2001 PART A [id number] [phone] ALYCIAHAYES ROSAY PATIENT MEDICARE (WNR) MEDICARE (M) PART B Sep 13, 2001 PART B [id number] 42A [phone] FILIPE FARRELL PATIENT MEDICARE (WNR) MEDICARE (M) PART A Sep 13, 2001 PART A [id number] [phone] FILIPE FARRELL PATIENT MEDICARE (WNR) MEDICARE (M) PART B Sep 13, 2001 PART B [id number] [phone] FILIPE FARRELL PATIENT Selected Encounter This section includes the information on record at [place] for the Encounter. Date/Time Encounter Type Encounter Description Reason Provider Source May 10, 2021 02:30 PM Outpatient Encounter TELEPHONE MH IHE Encounter Template Text not used by [place] Assessments - Encounter Diagnoses No Data Provided for This Section Plan of Treatment: Future Appointments (+ 6 months) and Future Tests (+/- 45 day s) The Plan of Treatment section includes future care activities for the patient fr om all [facility]. This section includes future appointments and fu ture orders which are active, pending or scheduled. Future Appointments This section includes appointments that were scheduled t o occur 6 months from the date of the Encounter, up to a maximum of 20 appointme nts. The data comes from all [facility]. Appointment Date/Time Appointment Type Appointment Facili ty Name Jul 06, 2021 11:00 AM AMBULATORY - PS[facility]CHIATRY [facility] Jul 07, 2021 03:30 PM AMBULATORY - MEDICINE [facility] Active, Pending, and Scheduled Orders This [...] the Encounter. The data comes from all [facility]. Test Date/Time Test Type Test Details Facility Name May 05, 2021 12:00 AM Laboratory - Chemistry Order GLYCO HGB A[facility]C [facility]LOOD [facility] May 05, 2021 12:00 AM Laboratory - Chemistry Order RENAL PRO FILE BLOOD SERUM [facility] May 05, 2021 12:00 AM Laboratory - Chemistry Order CBC BLOOD S P [facility] May 05, 2021 12:00 AM Laboratory - Chemistry Order RENAL+ANDREY ER PROFILE BLOOD SER[facility] SP [facility] May 05, 2021 12:00 AM Laboratory - Chemistry Order URIC ACID BLOOD SERUM SP ONE-TIME [facility] May 05, 2021 12:00 AM Laboratory - Chemistry Order INTACT PT H (FV) BLOOD PLASMA SP ONE-TIME [facility] May 05, 2021 12:00 AM Laboratory - Chemistry Order PO4 BLOOD SER UM SP ONE-TIME [facility] May 05, 2021 12:00 AM Laboratory - Chemistry Order IRON (FV) BLOOD SERUM SP ONE-TIME [facility] May 05, 2021 12:00 AM Laboratory - Chemistry Order FERRITIN (FV) BLOOD SERUM SP ONE-TIME [facility] May 05, 2021 12:00 AM Laboratory - Chemistry Order URINALYSIS UR INE SP ONE-TIME [facility] May 05, 2021 12:00 AM Laboratory - Chemistry Order VITAMIN D 25-OH BLOOD SERUM SP ONE-TIME [facility] Surgical Procedures: All associated to the encounter [...] and tobacco- related health factors from the [place] facility where the Encounter took place. Current Smoking Status This section includes the most current smoking, or tobacco -related health factor, from the [place] facility where the Encounter took place. Date/Time Current Smoking Status Comment Facility Apr 14, 2020 12:03 PM VA-TOBACCO QUIT 15 YRS OR MORE [facility] Tobacco Use History This section includes a history of the smoking, or tobacco -related health factors, that were collected on or before the date of the Encoun ter. The data comes from the [place] facility where the Encounter took place. Date/Time Smoking Status/Tobacco Use Comment Facil ity Apr 14, 2020 12:03 PM VA-TOBACCO FORMER USER [facility] Apr 14, 2020 12:03 PM [place]-TOBACCO QUIT 15 YRS OR MORE [facility] April 09, 2019 10:21 AM V16 TOBACCO USE SCREEN [facility] April 09, 2019 10:21 AM VA-TOBACCO FORMER USER [place] [facility] April 09, 2019 10:21 AM VA-TOBACCO QUIT 15 YRS OR MORE [facility] [place] [facility] Advance Directives: All historical and current No Data Provided for This Section Radiology Reports: +/- 30 days of the encounter No Data Provided for This Section Pathology Reports: +/- 30 days of the encounter No Data Provided for This Section Encounter Notes: All associated encounter notes This section contains the clinical notes associated to the Encounter. Date/Time Encounter Note(s) Provider Source May 10, 2021 01:41 PM ADMINISTRATIVE NOTE: LOCAL TITLE: ADMINISTRATIVE NOTE STANDARD TITLE: ADMINISTRATIVE NOTE DATE OF NOTE: MAY 10, 2021@13:41 ENTRY DATE: MAY 10, 2021@13:41:52 AUTHOR: YARY BARRERA EXP COSIGNER: URGENCY: STATUS: COMPLETED ADMINISTRATIVE NOTE Has ADDENDA Pre telephone appt call for MH Intake. No answer to the call. A VM was left with my contact information and request for return call. /anisa/ YARY BARRERA RN PRIMARY CARE REGISTERED NURSE-SLAVA Signed: 05/10/2021 13:42 05/10/2021 ADDENDUM STATUS: COMPLETED Attempted to reach , no answer, LVM with contact information requesting a call back. /anisa/ REJI VELÁSQUEZ RN PRIMARY CARE REGISTERED NURSE-SLAVA Signed: 05/10/2021 14:32 05/21/2021 ADDENDUM STATUS: COMPLETED [place] called back and stated he missed his appointment because he had to take his to the hospital. He is requesting a call back to rescheduled or just send him a letter with another appointment. [place] can be reached at . /es/ SYBIL WATSON AMS for [facility] Signed: 05/21/2021 13:32 Receipt Acknowledged By: 05/24/2021 10:57 /anisa/ DESHAWN [place] ADV[facility]ED MEDICAL SUPPORT ASST-AMANDAIN * AWAITING SIGNATURE * OMARI LADD 05/24/2021 ADDENDUM STATUS: COMPLETED called back no answer left vm /anisa/ DESHAWN DAHL ADVANCED MEDICAL SUPPORT ASST-[place] Signed: 05/24/2021 10:57 YARY BARRERA [facility]
--- OUTSIDE RECORDS SUMMARY | 2021-07-06 14:38 | XMS REPORT | Encounter Summary ---
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 Mar 05, 2003 [id number] [phone] MARELY FARRELL SPOUSE [place] [employer] [facility] [facility] Mar 05, 2003 [id number] [phone] MARELY FARRELL SPOUSE MEDICARE (WNR) MEDICARE (M) PART A Sep 13, 2001 PART A [id number] 42A [phone] FILIPE FARRELL PATIENT MEDICARE (WNR) MEDICARE (M) PART B Sep 13, 2001 PART B [id number] 42A [phone] FILIPE FARRELL PATIENT MEDICARE (WNR) MEDICARE (M) PART A Sep 13, 2001 PART A [id number] 42A [phone] HAYES FARRELLY PATIENT MEDICARE (WNR) MEDICARE (M) PART B Sep 13, 2001 PART B [id number] 42A [phone] FILIPE FARRELL PATIENT MEDICARE (WNR) MEDICARE (M) PART A Sep 13, 2001 PART A [id number] 42A [phone] FILIPE FARRELL PATIENT MEDICARE (WNR) MEDICARE (M) PART B Sep 13, 2001 PART B [id number] 42A [phone] FILIPE FARRELL PATIENT Selected Encounter This section includes the information on record at [place] for the Encounter. Date/Time Encounter Type Encounter Description Reason Provider Source Mar 08, 2021 12:18 PM Outpatient Encounter TELEPHONE/ANCILLARY IHE Encounter Template Text not used by [place] Assessments - Encounter Diagnoses No Data Provided for This Section Plan of Treatment: Future Appointments (+ 6 months) and Future Tests (+/- 45 day s) The Plan of Treatment section includes future care activities for the patient fr om all [facility] facilities. This section includes future appointments and fu ture orders which are active, pending or scheduled. Future Appointments This section includes appointments that were scheduled t o occur 6 months from the date of the Encounter, up to a maximum of 20 appointme nts. The data comes from all [facility]. Appointment Date/Time Appointment Type Appointment Facili ty Name May 10, 2021 02:30 PM AMBULATORY - [facility]RY [facility] Jul 06, 2021 11:00 AM AMBULATORY - PS[facility]ATRY [facility] Jul 07, 2021 03:30 PM AMBULATORY - MEDICINE [facility] Active, Pending, and Scheduled Orders This [...] the Encounter. The data comes from all [facility]. Test Date/Time Test Type Test Details Facility Name Feb 02, 2021 12:00 AM Laboratory - Chemistry Order OCCULT BL OOD FIT x1 SCREEN STOOL FECES SP ONE-TIME [facility] Surgical Procedures: All associated to the [...] 2009 09:30 AM V16 TOBACCO USE SCREEN RONYRUPINDERCAROL [facility] Tobacco Use History This section includes a history of the smoking, or tobacco -related health factors, that were collected on or before the date of the Encoun ter. The data comes from the [place] facility where the Encounter took place. Date/Time Smoking Status/Tobacco Use Comment [facility] it March 18, 2009 09:30 AM V16 TOBACCO USE SCREEN GASTON DE Jan 15, 2008 10:28 AM V16 TOBACCO CESSATION >7 YEA RS 30 years RONYSID DE Jan 15, 2008 10:28 AM V16 TOBACCO USE SCREEN RONYSID DE April 06, 2007 08:47 AM V16 TOBACCO CESSATION >7 YEARS RONYJUAN BOSCHCAROL DE April 06, 2007 08:47 AM V16 TOBACCO USE SCREEN GASTON DE Oct 27, 2006 09:44 AM V16 TOBACCO CESSATION > 12 MONTHS FA SID DE Oct 27, 2006 09:44 AM V16 TOBACCO USE SCREEN SID DE May 08, 2006 11:26 AM TOBACCO CESSATION: >10 YEARS RONYMARTIR MOREE DE Apr 20, 2005 11:15 AM TOBACCO CESSATION: >10 YEARS RONYPAVELE JAMIE DE Feb 02, 2004 02:41 PM TOBACCO CESSATION: >10 YEARS RONYPAVELE JAMIE DE Apr 26, 2001 08:56 AM TOBACCO CESSATION: >10 YEARS RONYRISHABHTTE JAMIE DE Advance Directives: All historical and current No Data Provided for This Section Radiology Reports: +/- 30 days of the encounter No Data Provided for This Section Pathology Reports: +/- 30 days of the encounter No Data Provided for This Section Encounter Notes: All associated encounter notes This section contains the clinical notes associated to the Encounter. Date/Time Encounter Note(s) Provider Source Mar 08, 2021 12:18 PM PHARMACY NOTE: LOCAL TITLE: PHARMACY NOTE STANDARD TITLE: PHARMACY NOTE DATE OF NOTE: MAR 08, 2021@12:18 ENTRY DATE: MAR 08, 2021@12:18:44 AUTHOR: NICOLE DESAI EXP COSIGNER: URGENCY: STATUS: COMPLETED Problem: has requested the following medications be renewed and mailed when due: Drug Name CLOBETASOL PROPIONATE 0.05% OINT Issue Date 12/26/2019 SIG APPLY SMALL AMOUNT TOPICALLY ONCE DAILY APPLY TO AFFECTED AREA UNTIL HEALED Facility: [facility] Drug Name LISINOPRIL 5MG TAB Issue Date 12/14/2020 SIG TAKE ONE TABLET BY MOUTH EVERY MORNING FOR BLOOD PRESSURE TO PROTECT KIDNEYS Facility: [facility] Intervention/Outcome: Note sent to clinic PLEASE CALL PHARMACY @ EXT [phone] FOR ANY QUESTIONS OR FOLLOW-UP /anisa/ NICOLE DESAI FITTING ROOM ATTENDANT Signed: 03/08/2021 12:20 Receipt Acknowledged By: * AWAITING SIGNATURE * NOLVIA NOEL TRACEE N [facility]
--- NOTE | 2021-07-06 14:39 | ED Lower Extremity ---
General Chief Complaint: Lower Extremity Stated Complaint: R LEG PAIN Nursing Triage Note: AMB TO ROOM WITH C/O R LEG PAIN FOR 1 WEEK [facility]. Source: patient Exam Limitations: no limitations History of Present Illness Date Seen by Provider: Jul 06, 2021 Time Seen by Provider: 14:25 Initial Comments Patient is a 76-year-old male who presents to the emergency room today with a chief complaint of right leg pain for about a week, worsening in the last 2 to 3 days. Patient states the pain started behind his right knee and has progress ively traveled down his right calf and up into his thigh and groin. Patient states that the right lower extremity and ankle seem a bit swollen to him. He has been using a bit of a heating pad to try and alleviate symptoms. Patient states no trauma, no injury. No fevers chills. Patient states it hurts so badly that when he goes from a lying or sitting position to standing that he cannot bear weight. He states once he starts to move around and walk he can tolerate walking a little bit. He denies any numbness or weakness in the right lower extremity. He has never had a blood clot before. He takes baby aspirin "when I remember it". He has not had any recent travel or prolonged immobility. No family history of blood clots that he is aware of. Patient [facility] [place] and advised them of his symptoms and was told to come to the emergency room for further evaluation. Patient denies chest pain or shortness of breath. No upper respiratory tract symptoms. He is Covid vaccinated. All other review of systems reviewed and negative except as stated. Onset: last week Pain/Injury Location: right leg Method of Injury: unknown Modifying Factors: Improves With Immobilization; Worse With Movement; Improves With Rest Allergies and Home Medications Patient Home Medication List Home Medication List Reviewed: Yes Review of Systems Constitutional: see HPI EENTM: no symptoms reported Respiratory: no symptoms reported Cardiovascular: no symptoms reported Gastrointestinal: no symptoms reported Genitourinary: no symptoms reported Musculoskeletal: joint swelling (right ankle), muscle pain (posterior right calf) Skin: no symptoms reported Psychiatric/Neurological: No Symptoms Reported All Other Systems Reviewed Negative Unless Noted: Yes Past Wxuhsnz-Kxjxqm-Ljhzes Hx Patient Social History Tobacco Use?: No Substance use?: No Pt feels they are or have been: No Immunizations Up To Date Influenza Vaccine Up-to-Date: No; Not Current First/Initial COVID19 Vaccinat: APRIL COVID19 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 oz. kg; 28.00 BMI Method: General Appearance: WD/WN, no apparent distress Neck: full range of motion Cardiovascular: regular rate, rhythm Respiratory: lungs clear, normal breath sounds, no respiratory distress, no accessory muscle use Gastrointestinal: normal bowel sounds, non tender, soft Hips: bilateral hip non-tender, bilateral hip normal inspection, bilateral hip normal range of motion, bilateral hip no evidence of injury Legs: right leg soft tissue tenderness (posterior right calf; tender to palpati on; positive Latrell's sign. no palpable cords. there is mild swelling in the RLE that extends to the ankle. NVI; good DP and PT pulses) Knees: right knee pain (tender in the popliteal space extending up the medial thigh) Ankles: right ankle swelling Feet: bilateral foot non-tender, bilateral foot normal inspection, bilateral foot normal range of motion, bilateral foot no evidence of injury Neurologic/Tendon: normal sensation, normal motor functions, normal tendon functions Neurologic/Psychiatric: alert, normal mood/affect, oriented x 3 Skin: normal color, warm/dry Progress/Results/Core Measures Results/Orders My Orders Orders - VIDYA SABA MD Us Venous Lower Ext Rt (07/06/21 14:33) Vital Signs/I&O 07/06/21 14:21 Temp 36.1 Pulse 52 B/P (MAP) 151/72 (98) Pulse Ox 98 O2 Delivery Room Air Blood Pressure Mean: 98 Diagnostic Imaging Diagonstic Imaging: Ultrasound Plain Films/CT/US/NM/MRI: leg (right) Comments RLE DVT Study: no DVT; large 5cm vail's cyst Departure Impression Primary Impression: Vail cyst Qualified Codes: M71.21 - Synovial cyst of popliteal space [Vail], right knee Additional Impression: Acute pain of right lower extremity Disposition: 01 HOME, SELF-CARE Condition: Stable Departure-Patient Inst. Decision time for Depature: 15:15 Referrals: NO,LOCAL PHYSICIAN (PCP/Family) Primary Care Physician Patient Instructions: Vail's Cyst Add. Discharge Instructions: You do not have a blood clot in your right leg today. You do have a cyst at the back of your knee which is rather large, compressing some nerves. This will take time to go away but you may ultimately need to see an Ortho doctor for it. Take Ibuprofen 3 pills (600mg) every 6- 8 hours with food as needed for pain. Use moist heat or a heating pad for soreness. [facility] Return to the ER for any new, concerning or emergent complaints. VIDYA SABA MD Jul 06, 2021 14:38
--- OUTSIDE RECORDS SUMMARY | 2021-07-06 14:39 | XMS REPORT ---
Author Author Department [facility] FILIPE gallegos Organization Department [facility] Address Unknown Phone Unavailable Care Team Providers Care Cloud Automation Tester Name Role Phone NOLVIA NOEL PCP Unavailable [...] Cedillo's Name Patient's Relationship to Policy Cedillo [facility] PLAN B Nov 13, 2001 [id number] [phone] MARELY FARRELL SPOUSE [place] ([id number]) PRESCRIPTION [place] [employer] EM[employer]EE Mar 05, 2003 [id number] [phone] MARELY FARRELL SPOUSE [place] [employer] [facility] Mar 05, 2003 [id number] [id number] [phone] MARELY FARRELL SPOUSE MEDICARE (WNR) MEDICARE (M) PART A Sep 13, 2001 PART A [id number] 42A [phone] FILIPE FARRELL PATIENT MEDICARE (WNR) MEDICARE (M) PART B Sep 13, 2001 PART B [id number] 42A [phone] FILIPE FARRELL PATIENT MEDICARE (WNR) MEDICARE (M) PART A Sep 13, 2001 PART A [id number] [phone] FILIPE FARRELL PATIENT MEDICARE (WNR) MEDICARE (M) PART B Sep 13, 2001 PART B [id number] [phone] FILIPE FARRELL PATIENT MEDICARE (WNR) MEDICARE (M) PART A Sep 13, 2001 PART A [id number] 42A [phone] FILIPE FARRELL PATIENT MEDICARE (WNR) MEDICARE (M) PART B Sep 13, 2001 PART B [id number] 42A [phone] FILIPE FARRELL PATIENT Selected Encounter This section includes the information on record at [place] for the Encounter. Date/Time Encounter Type Encounter Description Reason Provider Source Mar 05, 2021 09:14 AM Outpatient Encounter RENAL/NEPHROL(EXCEPT DIALYSIS) ICD-10-CM N18.30 Chronic kidney disease, stage 3 unspecified with Provider Comments: Chronic kidney disease stage 3 ([facility] [id number]) ADRIANNE CEDEÑO Elizabeth Encounter Template Text not used by [place] Assessments - Encounter Diagnoses This section includes the primary and secondary diag noses documented for the Encounter. Date/Time Primary/Secondary Diagnosis Diagnosis Name Provider Source Mar 05, 2021 09:31 AM PRIMARY Chronic kidney disease, st age 3 unspecified ADRIANNE CEDEÑO [facility] Mar 05, 2021 09:31 AM SECONDARY Analgesic nephropathy YANET CEDEÑO [facility] Mar 05, 2021 09:31 AM SECONDARY Essential (primary) hypert ension ADRIANNE CEDEÑO [facility] Mar 05, 2021 09:31 AM SECONDARY Secondary hyperparathyroid ism of renal origin ADRIANNE CEDEÑO [facility] Mar 05, 2021 09:31 AM SECONDARY Type 2 diabetes me llitus w diabetic chronic kidney disease ADRIANNE CEDEÑO [facility] Plan of Treatment: Future Appointments (+ 6 months) and Future Tests (+/- 45 day s) The Plan of Treatment section includes future care activities for the patient fr om all [place] treatment facilities. This section includes future appointments and fu ture orders which are active, pending or scheduled. Future Appointments This section includes appointments that were scheduled t o occur 6 months from the date of the Encounter, up to a maximum of 20 appointme nts. The data comes from all [place] treatment facilities. Appointment Date/Time Appointment Type Appointment Facili ty Name May 10, 2021 02:30 PM AMBULATORY - PSYCHIATRY [facility] Jul 06, 2021 11:00 AM AMBULATORY - PSYCHIATRY [facility] Jul 07, 2021 03:30 PM AMBULATORY - MEDICINE [facility] Active, Pending, and Scheduled Orders This [...] the Encounter. The data comes from all [place] treatment facilities. Test Date/Time Test Type Test Details Facility Name Feb 02, 2021 12:00 AM Laboratory - Chemistry Order OCCULT BL OOD FIT x1 SCREEN STOOL FECES SP ONE-TIME [facility] Surgical Procedures: All associated to the encounter [...] and tobacco- related health factors from the [place] facility where the Encounter took place. Current Smoking Status This section includes the most current smoking, or tobacco -related health factor, from the [place] facility where the Encounter took place. Date/Time Current Smoking Status Comment Facility March 18, 2009 09:30 AM V16 TOBACCO USE SCREEN GASTON [facility] Tobacco Use History This section includes a history of the smoking, or tobacco -related health factors, that were collected on or before the date of the Encoun ter. The data comes from the [place] facility where the Encounter took place. Date/Time Smoking Status/Tobacco Use Comment [facility] March 18, 2009 09:30 AM V16 TOBACCO USE SCREEN GASTON [facility] Jan 15, 2008 10:28 AM V16 TOBACCO CESSATION >7 YEA RS 30 years GASTON PEACE Jan 15, 2008 10:28 AM V16 TOBACCO USE SCREEN GASTON PEACE April 06, 2007 08:47 AM V16 TOBACCO CESSATION >7 YEARS DENNIS PEACE April 06, 2007 08:47 AM V16 TOBACCO USE SCREEN GASTON PEACE Oct 27, 2006 09:44 AM V16 TOBACCO CESSATION > 12 MONTHS RONY [facility] Oct 27, 2006 09:44 AM V16 TOBACCO USE SCREEN GASTON PEACE May 08, 2006 11:26 AM TOBACCO CESSATION: >10 YEARS FAVIO PEACE Apr 20, 2005 11:15 AM TOBACCO CESSATION: >10 YEARS FAVIO PEACE Feb 02, 2004 02:41 PM TOBACCO CESSATION: >10 YEARS FAVIO PEACE Apr 26, 2001 08:56 AM TOBACCO CESSATION: >10 YEARS FAVIO PEACE Advance Directives: All historical and current No Data Provided for This Section Radiology Reports: +/- 30 days of the encounter No Data Provided for This Section Pathology Reports: +/- 30 days of the encounter No Data Provided for This Section Encounter Notes: All associated encounter notes This section contains the clinical notes associated to the Encounter. Date/Time Encounter Note(s) Provider Source Mar 05, 2021 09:14 AM NEPHROLOGY CONSULT: LOCAL TITLE: NEPHROLOGY CONSULT STANDARD TITLE: NEPHROLOGY CONSULT DATE OF NOTE: MAR 05, 2021@09:14 ENTRY DATE: MAR 05, 2021@09:14:34 AUTHOR: ADRIANNE CEDEÑO EXP COSIGNER: URGENCY: STATUS: COMPLETED * REASON FOR E-CONSULT: Patient's renal function has worsened since his previous visit. I stop fenofibrate and lisinopril and have ordered repeat lab. I would like you to look at this case add anything that would help this patient. Thank you HISTORY OF PRESENT ILLNESS: As above. 07/29/15 Cr 1.4, eGFR 49, Hgb 10. 9. 02/02/21 Cr 1.9, eGFR 36, VITD3 5 9, Hgb 13, UA 1+G. ASSESSMENT: Chronic kidney disease stage 3b Analgesic, Diabetic, and Hypertensive Nephropathies Secondary Hyperparathyroidism Vitamin D Deficiency Diabetes Mellitus Type 2; 2002 Essential Hypertension; 1999 Hyperlipidemia Depressive Disorder HX of Tobacco Use; quit 1984 - 30 pk/yr Osteoarthritis of hands and knees; NSAIDS over 11 years. Over the past 6 years, the GFR has dropped by 13 ml/min, which is an approximately 2 ml/min/year decline in renal function. This drop is within the range of decline for most patients with diabetes and hypertension. ........................................ ................................ RECOMMENDATIONS: This Patient has renal failure from diabetic and hypertensive nephropathy combined with normal age related loss. The decreasing GFR is probably due to nephrosclerosis (glomerular drop-out), as chronic small vessel damage accumulates. A negative UA (i.e. without protein, blood, or cells) indicates that the glomerular basement membrane remains intact. Normal aging may account for a 0.5% to 1% drop per year in the GFR starting at age 40. A GFR loss of 1 to 5 ml/min per year is commonly seen in patients with DM, HTN, CAD, etc. In some Patients, the degree of arteriosclerosis varies, which then affects glomeruli at different times and rates. In other patients, the arteriosclerosis damage will be more uniform or global due to tight control of diabetes and hypertension, so that many glomeruli may tend to fail around the same time, which may cause a rapid decline in the GFR of up to 20 to 30 ml/min per year. Please use the general recommendations given below for patients in chronic kidney disease stage 3 and stage 4: - To preserve renal function, blood pres sure should usually be maintained in the 120/70 range (MAP around 85-90). - Follow volume for overload or dehydrat ion especially while on diuretics. - If diabetic, keep the glycosylated Hgb A1c around 7.0 or better, as tolerated. - All current active problems should be monitored and treated accordingly. - If not previously performed, check an FREDDIE, ESR, CRP to rule out secondary renal diseases and to obtain baseline values. - Patients in stable CKD Stage 3 or CKD Stage 4 should be followed with labs every 3, 6, or 12 months depending upon the patient's overall stability, if the patient is unstable, then possibly monthly. Labs followed should include a CBC, BMP + Albumin or a CMP, Uric acid, intact PTH, PO4, MG, Iron, Ferritin, Vitamin D3-25OH, and UA. - Monitor and maintain values for iPTH w ith a goal 40-60 pg/ml for CKC stage 3, or 70-110 pg/ml for CKD stage 4 by using calcitriol. If the calcium level rises above 10.5 mg/dL, then consider changing calcitriol to paricalcitol. - Maintain Vitamin D3-25OH level using c holecalciferol with a goal 30-40 ng/ml; if calcium levels are elevated, then reduce goal to low normal or just hold the Vitamin D supplement. - Uric Acid (goal is 4-7 mg/dl or <6.0 m g/dL for patients with a gout diagnosis); treat with allopurinol or febuxostat. - Phosphorous (goal <5.0 mg/dl); treat w ith calcium acetate, sevelamer carbonate, or calcium carbonate (TUMS). - Albumin below 3.4 g/dL; treat with pro tein shakes, egg whites, or protein powders. - Volume overload; treat with furosemide , bumetanide, HCTZ, metolazone, chlorthalidone, spironolactone, amiloride, or eplerenone. - If the Hgb and iron stores are not opt imal, then place the patient on oral iron once to twice a day using ferrous gluconate or ferrous sulfate to target ferritin levels between 200-300 ng/ml and iron saturation levels between 80-160 mcg/dL. - If the Hgb falls below 10 g/dL and the eGFR is less than 45 ml/m, then start Epoetin at 10,000 to 20,000 units SubQ every month to maintain Hgb levels between 10-11 g/dL. Monitor the Hgb/Hct level every month while on Epoetin. - Renally adjust dosing of all medicatio ns to the appropriate current eGFR. - Check an SPEP and UPEP for newly diagn osed proteinuria, or if the patient later develops nephrotic range proteinuria along with a significantly worsening creatinine level to rule out amyloid or multiple myeloma. - Monitor the patient with a Renal Ultra sound every 3 to 5 years with CKD or as needed to evaluate renal anatomy or cysts. These studies will also provide baseline labs for future reference. - Avoid nephrotoxic agents (e.g. NSAIDS) to preserve remaining renal function. - This patient may be re-evaluated in [facility] when the patient is determined to have Chronic Kidney Disease Stage 4 (15-29 ml/min eGFR) depending upon the PCP's evaluation and expertise. Please contact me if you have any further questions. Thank you for consulting Nephrology. PAST MEDICAL HISTORY: Active Problem List: Computerized Problem List is the source for the followin. Secondary hyperparathyroidism 2. Analgesic nephropathy 3. Chronic kidney disease stage 3 4. Vitamin D deficiency 10/01/14 Vit D level 22.8 ng/mL 5. Partner Relational Problem 6. Dupuytren's contracture of right palm (SNOMED CT 77059915641261910) Developing left palm February 2013 7. Depression (SNOMED CT 03861856) 8. History of tobacco use (SNOMED CT 5679995238218) quit tobacco 1984 9. Family History of Diabetes Mellitus Mom age 68 - complications of diabetes 10. Colonoscopy Colonoscopy Jun 2001 = negative Colonoscopy 12/16/09 = Negative Repeat Dec 2014 - family history indication 03/25/15 normal F/U 5 yrs = 03/2020 11. Family History of Malignant Neoplasm of Gastrointestinal Tract Father and brother had colon cancer Surveillance colonoscopy up to date through December 2014 12. SURGICAL HISTORY MOHS surgery Left ear for skin cancer 13. 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 Osteoarthritis (SNOMED CT 922844344) BILAT HIPS 15. Type 2 diabetes mellitus (SNOMED CT 25683641) Insulin started 03/06/2012 16. Hemorrhoids 17. Hypertension (SNOMED CT 66134106) 18. Hyperlipidemia (SNOMED CT 97841527) simvastatin 80 mg > 1 yr as of April 2011 = no change 19. Chronic low back pain (SNOMED CT 278 075033) 03/2016 TENS unit, PT consult 20. PROLONG POSTTRAUM STRESS Inactive Problem List: Computerized Problem List is the source for the followin. Neoplasm of uncertain behavior of skin (ICD-9-CM 238.2) ALLERGIES: PENICILLIN, DOXEPIN, METFORMIN MEDICATIONS: ACCU-CHEK RACHELLE PLUS(GLUCOSE) TEST STRIP Fill Date: FEB 02, 2021 AMLODIPINE 5MG TAB Fill Date: FEB 02, 2021 ATENOLOL 50MG TAB Fill Date: DEC 11, 2020 CHOLECALCIF 25MCG (D3-1,000UNIT) TAB Fill Date: JAN 28, 2021 GABAPENTIN 300MG CAP Fill Date: JAN 28, 2021 INSULIN GLARGINE U-100 10ML/VIAL Fill Date: JAN 28, 2021 INSULIN SYRINGE 0.5ML 30G 12MM Fill Date: JAN 28, 2021 MAGNESIUM OXIDE 420MG TAB Fill Date: JUL 27, 2020 ROSUVASTATIN CA 40MG TAB Fill Date: FEB 03, 2021 SERTRALINE 100MG TAB Fill Date: JUN 02, 2020 NON-VA MULTIVITAMINS TAB Status: ACTIVE NON-VA GLUCOSAMINE CAP/TAB Status: ACTIVE NON-VA GLIPIZIDE 5MG SA TAB Status: DISCONTINUED NON-VA ASPIRIN 325MG EC TAB Status: ACTIVE VITALS: Temp: 97.5 F [36.4 C] (02/02/2021 11:07) BP: 138/63 (02/02/2021 11:07) Pulse: 56 (02/02/2021 11:07) RRate: 18 (02/02/2021 11:07) Weight: 197 lb [89.5 kg] (02/02/2021 11:07) Height: 68 in [172.7 cm] (02/02/2021 11:07) Pain: 6 (02/02/2021 11:49) BMI: FEB 02, 2021@11:07:12 30.0 LAB RESULTS: BT - Blood Transfusions No data available CH - Chem & Hematology No data available CY - Cytopathology No data available EM - Electron Microscopy No data available LEONEL - Microbiology No data available SP - Surgical Pathology No data available /anisa/ ADRIANNE CEDEÑO MD TEST PREPARER/HOSPITALIST Signed: 03/05/2021 09:31 Receipt Acknowledged By: * AWAITING SIGNATURE * NOLVIA NOEL,ADRIANNE PEACE [facility]
--- OUTSIDE RECORDS SUMMARY | 2021-07-06 14:40 | XMS REPORT | Encounter Summary ---
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 Respiration: 18 (02/02/2021 11:07) Temperature: 97.5 F [36.4 C] (02/02/2021 11:07) BMI: FEB 02, 2021@11:07:12 30.0 02/02/21 @ 1107 PULSE OXIMETRY: 94 Mental Status: alert and oriented Are there things in your life that worry you or cause you stress? NO Depression: No Suicidal: No Accompanied By: Alone On Arrival: Ambulatory Mobility changes in the past 3 months? No Do you have or use an assistive device? No Has patient had fall(s) in last 3 months? No, patient reports no fall(s) in last 3 months. Potential risks for falls identified. No Has the patient traveled outside the [place] within the past 30 days? No If yes, where has the patient traveled? Psychosocial Status: Indication of suspected abuse, neglect, or exploitation? No LAB TESTS SELECTED Collection DT Specimen Test Name Result Units Ref Range 12/26/2019 13:12 SERUM Dir LDL 230 H mg/dL Ref: <= 129 02/02/2021 10:00 SERUM LDLc 202 LAB CUMULATIVE SELECTED 1 No selection items chosen for this component. OTHER MEDICATIONS (HERBALS, OTC's, etc): No Active Outpatient Medications (including Supplies): Active Outpatient Medications Status 1) ATENOLOL 50MG TAB TAKE ONE TABLET BY MOUTH ONCE ACTIVE (S) DAILY FOR BLOOD PRESSURE / HEART 2) CHOLECALCIF 25MCG (D3-1,000UNIT) TA B TAKE TWO TABLETS ACTIVE BY MOUTH ONCE DAILY 3) FENOFIBRATE 48MG TAB TAKE ONE TABLE T BY MOUTH ONCE ACTIVE DAILY FOR HIGH TRIGLYCERIDES 4) GABAPENTIN 300MG CAP TAKE ONE CAPSU LE BY MOUTH AT ACTIVE BEDTIME FOR 3 DAYS, THEN TAKE TWO CAPSULES AT BEDTIME FOR 3 DAYS, THEN TAKE THREE CAPSULES AT BEDTIME -(MAY CAUSE DROWSINESS) 5) INSULIN GLARGINE U-100 10ML/VIAL IN JECT 42 UNITS ACTIVE SUBCUTANEOUSLY AT BEDTIME FOR DIABETES (SHIP REFRIGERATED) 6) INSULIN SYRINGE 0.5ML 30G 12MM SYRI NGE SUBCUTANEOUSLY ACTIVE AT BEDTIME 7) LISINOPRIL 5MG TAB TAKE ONE TABLET BY MOUTH EVERY ACTIVE (S) MORNING FOR BLOOD PRESSURE TO PROTECT KIDNEYS 8) MAGNESIUM OXIDE 420MG TAB TAKE ONE TABLET BY MOUTH AT ACTIVE BEDTIME TAKE WITH FOOD 9) SERTRALINE 100MG TAB TAKE ONE AND O NE-HALF TABLETS BY ACTIVE MOUTH AT BEDTIME FOR DEPRESSION AND NERVES. 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 Assistive device(s): Patient reports he/she does not use assistive device(s). LUND INDEX FOR ADL SCREENING: Perform Screening LUND Index of [place] in Activities of Daily Living was completed at this encounter. BATHING: Patient needs no supervision, direction or personal assistance with bathing. DRESSING: Patient needs no supervision, direction or personal assistance with dressing. TOILETING: Patient needs no supervision, direction or personal assistance with toileting. TRANSFERRING: Patient needs no supervision, direction or personal assistance with transferring. CONTINENCE: Patient needs no supervision, direction or personal assistance with continence. FEEDING: Patient needs no supervision, direction or personal assistance with feeding/eating. TOTAL POINTS: = [ 6 ] FULL FUNCTION (Independent) INSTRUMENTAL ACTIVITIES OF DAILY LIVING (IADL) SCALE ([place]) Ability to use telephone: 1 point - Operates telephone on own initiative; looks up and dials numbers, etc. Shoppin point - Takes care of all shopping needs independently Food preparation: 1 point - Plans, prepares, and serves adequate meals independently Housekeepin point - Maintains house alone or with occasional assistance (e.g., "heavy work domestic help") Laundry: 1 point - Does personal laundry completely Mode of transportation: 1 point - Travels independently on public transportation or drives own car Responsibility for own medications: 1 point - Is responsible for taking medication in correct dosages at correct time Ability to handle finances: 1 point - Manages financial matters independently (budgets, writes checks, pays rent and bills, goes to bank), collects and keeps track of income SCORING: The total score may range from 0 - 8. A lower score indicates a higher level of dependence. Total score: 8 points URINARY INCONTINENCE SCREENING: Do you leak urine when you don't want to: [NO] Do you leak urine when you cough, laugh or exercise: [NO] Do you leak urine on the way to the bathroom: [NO] Ever use pads, tissue or cloth in underwear to catch urine: [NO] Patient has a NEGATIVE Urinary Incontinence screen, no further assessment is required for annual screening. Healthy Living Discussion: Healthy Living Discussion: Nine Healthy Living Messages: The impact of healthy living behaviors on overall physical and mental well-being discussed with Macon. Be Involved Eat Wisely Be Tobacco Free Manage Stress Be Physically Active Get Screenings and Tests Be Safe Limit Alcohol Strive for Healthy Weight No, is not interested in any topic at this time. Importance of healthy living for better health, especially being physically active and eating wisely, was communicated to the . Macon informed that these topics can be discussed at any time. Patient level of understanding: Good Herpes Zoster (Shingles) Vaccine: The patient declines to receive the herpes zoster vaccine. Tdap Immunization: The patient declines to receive the recommended dose of Tetanus, Diphtheria, Pertussis vaccine (Tdap). Food/Drug Interaction Ed (Nurse): Patient received food/drug interactions education at this encounter. Level of Understanding: Good Avg Risk Colorectal Cancer Screen: AVERAGE RISK colorectal cancer screening is due based on information available to this clinical reminder FOBT/FIT (Fecal Immunochemical Testing) has been ordered. See order tab for details. Jose Alberto Skin Evaluation (Outpatient): -Patient does not use wheelchair. -Patient is not confined to bed. -Patient does not require assistance for transfers/position changes. -Patient does not use a certified ophthalmic medical technician that fits over skin (e.g., artificial limb, braces, splint, condom catheter) -Patient currently has no open wounds. -No history of pressure ulcer(s). -Patient currently has no pressure ulcer(s). Jose Alberto Skin Evaluation completed in the last year and Score >18 EDUCATION: Pressure Ulcer education not indicated at this time. Diabetic Diet Instruction (Nurse): Printed diabetic diet instructions provided at this encounter: Patient/caregiver declined printed diabetic diet instructions at this time. Tuberculosis Screen (Nurse): Previous TB Screen reviewed. No changes were noted. Learning Evaluation (Nurse): Patient declined learning assessment at this encounter. Diab Fundu Exam 2Y Scrn (Nurse): Patient declined referral for Funduscopic Eye Exam during this encounter. Daily Aspirin (Nurse): Patient does not take daily aspirin. Nutrition/Health Risk Scrn (Nurse): NUTRITION AND HEALTH RISK SCREEN: Has patient had any unintentional weight loss of more than 10 pounds in the last 3 months? Patient reports no unintentional weight loss >10 lbs in last three months. LDL greater than 130 mg/dl within last 6 months? No, patient's LDL is NOT greater than 130 mg/dl Glyco Hgb A1C results in the last 6 months No, patient has no Glyco Hgb A1c lab on file in last 6 months. Is patient on warfarin ? No, patient is NOT on warfarin * * * * There were no "YES" responses to the above screening questions * * * * Pain Evaluation (Nurse): PAIN EVALUATION: Clinic Location: Primary Care Patient reports no pain present today. Pain Score: 6 Advance Directive Screen (Nurse): "Your Rights Regarding Advance Directives" was discussed and/or provided to patient/caregiver. ADVANCE DIRECTIVE SCREEN COPY of Advance Directive NOT on file in patient's medical record. Patient does not wish to create an Advance Directive. Information provided to patient. HIV Screening : Patient has been offered HIV testing and has declined. I have explained that HIV testing is recommended for all adults, even if all risk factors are absent. High Risk Dx FOOT EXAM (Prov/Nurse): Patient had VISUAL foot exam at this encounter. Result of exam: Normal Patient had SENSORY foot exam per monofilament performed at this encounter. Result of exam: Normal Patient had PEDAL PULSE foot exam at this encounter. Result of exam: Normal Relative Risk for a future amputation: 0 (Normal Risk) Foot exam and relative risk discussed with patient. /anisa/ ANGELITO FRY LPN PRIMARY CARE [employer] CBOC Signed: 02/02/2021 11:54 ANGELITO FRY [facility]
--- OUTSIDE RECORDS SUMMARY | 2021-07-06 14:40 | XMS REPORT | Encounter Summary ---
Author Author Department [facility] FILIPE gallegos Organization Department 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 Name Role Phone NOLVIA NOEL PCP [...] Cedillo's Name Patient's Relationship to Policy Cedillo [facility] PL[facility] B Nov 13, 2001 [id number] [phone] MARELY FARRELL SPOUSE [place] ([id number]) PRESCRIPTION [employer]EE Mar 05, 2003 [id number] [phone] MARELY FARRELL SPOUSE [place] [employer] [facility] Mar 05, 2003 [id number] [phone] MARELY FARRELL SPOUSE MEDICARE (WNR) MEDICARE (M) PART A Sep 13, 2001 PART A [id number] [phone] FILIPE FARRELL PATIENT MEDICARE (WNR) MEDICARE (M) PART B Sep 13, 2001 PART B [id number] 42A [phone] FILIPE FARRELL PATIENT MEDICARE (WNR) MEDICARE (M) PART A Sep 13, 2001 PART A [id number] [phone] ALYCIAHAYES ROSAY PATIENT MEDICARE (WNR) MEDICARE (M) PART B Sep 13, 2001 PART B [id number] 42A [phone] FILIPE FARRELL PATIENT MEDICARE (WNR) MEDICARE (M) PART A Sep 13, 2001 PART A [id number] 42A [phone] FILIPE FARRELL PATIENT MEDICARE (WNR) MEDICARE (M) PART B Sep 13, 2001 PART B [id number] 42A [phone] FILIPE FARRELL PATIENT Selected Encounter This section includes the information on record at [place] for the Encounter. Date/Time Encounter Type Encounter Description Reason Provider Source Feb 02, 2021 12:00 AM Outpatient Encounter EVENT (HISTORICAL) IHE Encounter Template Text not used by [place] Assessments - Encounter Diagnoses No Data Provided for This Section Plan of Treatment: Future Appointments (+ 6 months) and Future Tests (+/- 45 day s) The Plan of Treatment section includes future care activities for the patient fr om all [facility] facilities. This section includes future appointments and fu ture orders which are active, pending or scheduled. Future Appointments This section includes appointments that were scheduled t o occur 6 months from the date of the Encounter, up to a maximum of 20 appointme nts. The data comes from all [facility]. Appointment Date/Time Appointment Type Appointment Facili ty Name May 10, 2021 02:30 PM AMBULATORY - PSYCHIATRY [facility] Jul 06, 2021 11:00 AM AMBULATORY - PSYCHIATRY [facility] Jul 07, 2021 03:30 PM AMBULATORY - MEDICINE [facility] Active, Pending, and Scheduled Orders [...] the Encounter. The data comes from all [facility]. Test Date/Time Test Type Test Details Facility Name Feb 02, 2021 12:00 AM Laboratory - Chemistry Order OCCULT BL OOD FIT x1 SCREEN STOOL FECES SP ONE-TIME [facility] Surgical Procedures: All associated to the encounter No Data Provided for This Section Lab Results: +/- 30 days of the encounter This section includes the Chemistry and Hematology Lab R esults on record with [place] for the patient. Radiology Reports and Pathology Report s are provided separately, in subsequent sections. Lab Results This section contains the Chemistry/Hematology Results lyric t were resulted 30 days before or 30 days after the date of the Encounter. Date/Time Source Result Type Result - Unit Interpretation Reference Range Comment Feb 02, 2021 10:00 AM [facility] URINALYSIS Speci men Type: URINE No comment entered. Ordering Provider: NOLVIA NOEL Report Released Date/Time: Jan 14, 2021 10:10 AM Reporting Lab: [address] [id number] Performing Lab: [address] [id number] UA COLOR YELLOW COLORLESS-YELLOW UA SPEC [...] Aida/uL NEG-74 Feb 02, 2021 10:00 AM [facility] B12 Speci men Type: SERUM No comment entered. Ordering Provider: NOLVIA NOEL Report Released Date/Time: Jan 14, 2021 10:10 AM Reporting Lab: [facility] [address] [place] [id number] Performing Lab: [facility] [address] [facility] 7270 VITAMIN B12 (FV) 209 pg/mL 180-914 Feb 02, 2021 10:00 AM [facility] CBC Speci men Type: BLOOD No comment entered. Ordering Provider: NOLVIA NOEL Report Released Date/Time: Jan 14, 2021 10:10 AM Reporting Lab: [address] [id number] Performing Lab: [address] [phone] MPV (FV) 7.1 fL L 7.4-10.4 [...] K/cmm 0.0-0.2 Feb 02, 2021 10:00 AM [facility] GLYCO HGB A1C Speci men Type: BLOOD No comment entered. Ordering Provider: NOLVIA NOEL Report Released Date/Time: Jan 14, 2021 10:10 AM Reporting Lab: [address] [id number] [phone] Performing Lab: [address] [phone] Glyco Hgb A1C 8.4 % H 4.2-5.8 Feb 02, 2021 10:00 AM [facility] LIPID PROFILE Speci men Type: SERUM No comment entered. Ordering Provider: NOLVIA NOEL Report Released Date/Time: Jan 14, 2021 10:10 AM Reporting Lab: [address] [phone] Performing Lab: [address] [id number] CHOLESTEROL, TOTAL (FV) 279 mg/dL H 118-20 0 TRIGLYCERIDE (FV) 179 mg/dL H <150 LDL CHOLESTEROL (CALCULATED) 202 HDL CHOLESTEROL (FV) 41 mg/dL >40 Feb 02, 2021 10:00 AM [facility] MAGNESIUM Speci men Type: SERUM No comment entered. Ordering Provider: NOLVIA NOEL Report Released Date/Time: Jan 14, 2021 10:10 AM Reporting Lab: [address] [facility] [id number] Performing Lab: [address] [phone] MAGNESIUM (FV) 1.6 mg/dL L 1.8-2.4 Feb 02, 2021 10:00 AM [facility] VITAMIN D 25-OH Spec imen Type: SERUM No comment entered. Ordering Provider: NOLVIA NOEL Report Released Date/Time: Jan 14, 2021 10:10 AM Reporting Lab: [facility] [address] [facility] 7270 Performing Lab: [facility] [address] [facility] 7270 VITAMIN D 25-OH 58.53 ng/mL 10.4-59.4 Feb 02, 2021 10:00 AM [facility] RENAL+LIVER PROFILE Specimen Type: SERUM No comment entered. Ordering Provider: NOLVIA NOEL Report Released Date/Time: Jan 14, 2021 10:10 AM Reporting Lab: [address] [facility] [phone] Performing Lab: [address] [phone] GLUCOSE (FV) 124 mg/dL H 70-110 [...] H .61-1.24 Feb 02, 2021 10:00 AM [facility] TSH (FV) Speci men Type: SERUM No comment entered. Ordering Provider: NOLVIA NOEL Report Released Date/Time: Jan 14, 2021 10:10 AM Reporting Lab: [facility] [address] [facility] 7270 Performing Lab: [facility] [address] [facility] 7270 TSH () 3.04 mcIU/mL 0.45-5.33 [...] and tobacco- related health factors from the [place] facility where the Encounter took place. Current Smoking Status This section includes the most current smoking, or tobacco -related health factor, from the [place] facility where the Encounter took place. Date/Time Current Smoking Status Comment Facility March 18, 2009 09:30 AM V16 TOBACCO [facility]EN [facility] Tobacco Use History This section includes a history of the smoking, or tobacco -related health factors, that were collected on or before the date of the Encoun ter. The data comes from the [place] facility where the Encounter took place. Date/Time Smoking Status/Tobacco Use Comment [facility] it March 18, 2009 09:30 AM V16 [...] 09:44 AM V16 TOBACCO USE SCREEN [facility] May 08, 2006 11:26 AM TOBACCO CESSATION: >10 YEARS [place]IO [place] Apr 20, 2005 11:15 AM TOBACCO CESSATION: >10 YEARS FAVIO [place] Feb 02, 2004 02:41 PM TOBACCO CESSATION: >10 YEARS FAVIO AYALA [facility] Apr 26, 2001 08:56 AM TOBACCO CESSATION: [...] of the Encounter. The data comes from [facility] treatment facilities. Date/Time Radiology Report Provider Source Feb 02, 2021 12:09 PM SPINE LUMBOSACRAL MIN 6 VIEW S: FILIPE FARRELL [id number] [id number] M Exm Date: FEB 02, 2021@12:09 Req Phys: NOLVIA NOEL Loc: [facility] TM 3 (Req'g Loc) Img Loc: [facility] Service: Unknown (Case [id number] COMPLETE) SPINE LUM BOSACRAL MIN 6 VIEWS (RAD Detailed) CPT:74393 Reason for Study: low back pain Clinical History: Report Status: Verified Date Reported: FEB 03, 2021 Date Verified: FEB 03, 2021 Guest Associate E-Sig:/ES/ALICIA BARBOUR Report: PROCEDURE: SPINE LUMBOSACRAL MIN [...] Primary Interpreting Staff: ALICIA BARBOUR, Staff Physician (Guest Associate) /ALICIA YUSUF [facility] Pathology Reports: +/- 30 days of the encounter No Data Provided for This Section Encounter Notes: All associated encounter notes No Data Provided for This Section
--- OUTSIDE RECORDS SUMMARY | 2021-07-06 14:41 | XMS REPORT | Encounter Summary ---
Author Author Department [facility] FILIPE gallegos Organization Department [facility] Address Unknown Phone Unavailable Care Team Providers Care Oleomargarine Maker Name Role Phone NOLVIA NOEL PCP Unavailable [...] Cedillo's Name Patient's Relationship to Policy Cedillo [facility] MEDICAL [place] PLAN B Nov 13, 2001 [id number] [phone] MARELY FARRELL SPOUSE [place] ([id number]) PRESCRIPTION [place] [employer] [place] Mar 05, 2003 [id number] [phone] MARELY AFRRELL SPOUSE [place] [employer] [place] Mar 05, 2003 [id number] [phone] MARELY FARRELL SPOUSE MEDICARE (WNR) MEDICARE (M) PART A Sep 13, 2001 PART A [id number] [phone] ALYCIAMOEHAYESY PATIENT MEDICARE (WNR) MEDICARE (M) PART B Sep 13, 2001 PART B [id number] [phone] FILIPE FARRELL PATIENT MEDICARE (WNR) MEDICARE (M) PART A Sep 13, 2001 PART A [id number] [phone] HAYES FARRELLY PATIENT MEDICARE (WNR) MEDICARE (M) PART B Sep 13, 2001 PART B [id number] [phone] FILIPE FARRELL PATIENT MEDICARE (WNR) MEDICARE (M) PART A Sep 13, 2001 PART A [id number] [id number] FILIPE FARRELL PATIENT MEDICARE (WNR) MEDICARE (M) PART B Sep 13, 2001 PART B [id number] [id number] FILIPE FARRELL PATIENT Selected Encounter This section includes the information on record at [place] for the Encounter. Date/Time Encounter Type Encounter Description Reason Provider Source Jan 14, 2021 09:59 AM Outpatient Encounter ADMIN PAT ACTIVTIES (TOMMY ERIC) IHE Encounter Template Text not used by [place] Assessments - Encounter Diagnoses No Data Provided for This Section Plan of Treatment: Future Appointments (+ 6 months) and Future Tests (+/- 45 day s) The Plan of Treatment section includes future care activities for the patient fr om all [facility] facilities. This section includes future appointments and fu ture orders which are active, pending or scheduled. Future Appointments This section includes appointments that were scheduled t o occur 6 months from the date of the Encounter, up to a maximum of 20 appointme nts. The data comes from all [facility]. Appointment Date/Time Appointment Type Appointment Facili ty Name Feb 02, 2021 10:00 AM AMBULATORY - NONE [facility] Feb 02, 2021 11:00 AM AMBULATORY - MEDICINE [facility] May 10, 2021 02:30 PM AMBULATORY - PSY[facility]ATRY [facility] Jul 06, 2021 11:00 AM AM[facility]ULATORY [facility]RY [facility] Jul 07, 2021 03:30 PM AMBULATORY MEDICINE [facility] Active, Pending, and Scheduled Orders [...] the Encounter. The data comes from all [facility]. Test Date/Time Test Type Test Details Facility Name Feb 02, 2021 12:00 AM Laboratory - Chemistry Order OCCULT BL OOD FIT x1 SCREEN STOOL FECES SP ONE-TIME [facility] Surgical Procedures: All associated to the encounter No Data Provided for This Section Lab Results: +/- 30 days of the encounter This section includes the Chemistry and Hematology Lab R esults on record with [place] for the patient. Radiology Reports and Pathology Report s are provided separately, in subsequent sections. Lab Results This section contains the Chemistry/Hematology Results lyric t were resulted 30 days before or 30 days after the date of the Encounter. Date/Time Source Result Type Result - Unit Interpretation Reference Range Comment Feb 02, 2021 10:00 AM [facility] URINALYSIS Speci men Type: URINE No comment entered. Ordering Provider: NOLVIA NOEL Report Released Date/Time: Jan 14, 2021 10:10 AM Reporting Lab: [address] [facility] [phone] Performing Lab: [address] [phone] UA COLOR YELLOW COLORLESS-YELLOW UA SPEC [...] Aida/uL NEG-74 Feb 02, 2021 10:00 AM [facility] B12 Speci men Type: SERUM No comment entered. Ordering Provider: NOLVIA NOEL Report Released Date/Time: Jan 14, 2021 10:10 AM Reporting Lab: [facility] [address] [facility] 7270 Performing Lab: [facility] [address] [facility] 7270 VITAMIN B12 (FV) 209 pg/mL 180-914 Feb 02, 2021 10:00 AM [facility] CBC Speci men Type: BLOOD No comment entered. Ordering Provider: NOLVIA NOEL Report Released Date/Time: Jan 14, 2021 10:10 AM Reporting Lab: [address] [facility] [phone] Performing Lab: [address] [phone] MPV (FV) 7.1 fL L 7.4-10.4 [...] K/cmm 0.0-0.2 Feb 02, 2021 10:00 [facility] GLYCO HGB A1C Speci men Type: BLOOD No comment entered. Ordering Provider: NOLVIA NOEL Report Released Date/Time: Jan 14, 2021 10:10 AM Reporting Lab: [facility] [address] [place] [address] Performing Lab: [facility] [address] [place] [address]35 Glyco Hgb A1C 8.4 % H 4.2-5.8 Feb 02, 2021 10:00 AM [facility] LIPID PROFILE Speci men Type: SERUM No comment entered. Ordering Provider: NOLVIA NOEL Report Released Date/Time: Jan 14, 2021 10:10 AM Reporting Lab: [facility] [address] [place] [address]35 Performing Lab: [address] [phone] CHOLESTEROL, TOTAL (FV) 279 mg/dL H 118-20 0 TRIGLYCERIDE (FV) 179 mg/dL H <150 LDL CHOLESTEROL (CALCULATED) 202 HDL CHOLESTEROL (FV) 41 mg/dL >40 Feb 02, 2021 10:00 AM [facility] MAGNESIUM Speci men Type: SERUM No comment entered. Ordering Provider: NOLVIA NOEL Report Released Date/Time: Jan 14, 2021 10:10 AM Reporting Lab: [address] [phone] Performing Lab: [address] [phone] MAGNESIUM (FV) 1.6 mg/dL L 1.8-2.4 Feb 02, 2021 10:00 AM [facility] VITAMIN D 25-OH Spec imen Type: SERUM No comment entered. Ordering Provider: NOLVIA NOEL Report Released Date/Time: Jan 14, 2021 10:10 AM Reporting Lab: [facility] [address] [place] [phone] Performing Lab: [facility] [address] [facility] [address] [facility] 7270 VITAMIN D 25-OH 58.53 ng/mL 10.4-59.4 Feb 02, 2021 10:00 AM [facility] RENAL+LIVER PROFILE Specimen Type: SERUM No comment entered. Ordering Provider: NOLVIA NOEL Report Released Date/Time: Jan 14, 2021 10:10 AM Reporting Lab: [address] [phone] Performing Lab: [address] [phone] GLUCOSE (FV) 124 mg/dL H 70-110 [...] H .61-1.24 Feb 02, 2021 10:00 AM [facility] TSH (FV) Speci men Type: SERUM No comment entered. Ordering Provider: NOLVIA NOEL Report Released Date/Time: Jan 14, 2021 10:10 AM Reporting Lab: [facility] [address] [facility] 7270 Performing Lab: [facility] [address] [facility] 7270 TSH () 3.04 mcIU/mL 0.45-5.33 [...] and tobacco- related health factors from the [place] facility where the Encounter took place. Current Smoking Status This section includes the most current smoking, or tobacco -related health factor, from the [place] facility where the Encounter took place. Date/Time Current Smoking Status Comment Facility March 18, 2009 09:30 AM V16 TOBACCO USE SCREEN [facility] Tobacco Use History This section includes a history of the smoking, or tobacco -related health factors, that were collected on or before the date of the Encoun ter. The data comes from the [place] facility where the Encounter took place. Date/Time Smoking Status/Tobacco Use Comment [facility] it March 18, 2009 09:30 AM V16 TOBACCO USE SCREEN [place] Jan 15, 2008 10:28 AM V16 TOBACCO CESSATION >7 YEA RS 30 [facility] [place] Jan 15, 2008 10:28 AM V16 TOBACCO USE SCREEN [facility] April 06, 2007 08:47 AM V16 TOBACCO [...] of the Encounter. The data comes from [facility] treatment facilities. Date/Time Radiology Report Provider Source Feb 02, 2021 12:09 PM SPINE LUMBOSACRAL MIN 6 VIEW S: FILIPE FARRELL [id number] [phone] M Exm Date: FEB 02, 2021@12:09 Req Phys: NOLVIA NOEL Loc: [facility] TM 3 (Req'g Loc) Img Loc: [facility] RAD[facility]OLOGY Service: Unknown (Case [id number] COMPLETE) SPINE LUM BOSACRAL MIN 6 VIEWS (RAD Detailed) CPT:20017 Reason for Study: low back pain Clinical History: Report Status: Verified Date Reported: FEB 03, 2021 Date Verified: FEB 03, 2021 Gallery Assistant E-Sig:/ES/ALICIA BARBOUR Report: PROCEDURE: SPINE LUMBOSACRAL MIN [...] Primary Interpreting Staff: ALICIA BARBOUR, Staff Physician (Gallery Assistant) /ALICIA YUSUF [facility] Pathology Reports: +/- 30 days of the encounter No Data Provided for This Section Encounter Notes: All associated encounter notes This section contains the clinical notes associated to the Encounter. Date/Time Encounter Note(s) Provider Source Jan 14, 2021 09:59 AM ADMINISTRATIVE NOTE: LOCAL TITLE: ADMINISTRATIVE NOTE STANDARD TITLE: ADMINISTRATIVE NOTE DATE OF NOTE: JAN 14, 2021@09:59 ENTRY DATE: JAN 14, 2021@10:00:07 AUTHOR: LARON WILDER COSIGNER: URGENCY: STATUS: COMPLETED Clinical Contact/Call Center Coronavirus Disease 2019 (COVID-19) Screen, katelin. 12June 01, 2020 DIAGNOSIS AND TESTING STATUS: Has Barnhart been diagnosed with COVID-19: () Yes* Date: (*No Further Screening Required) (x) No (Continue Screening) Comment(s): Is waiting for COVID-19 test results: () Yes (Continue Screening) (x) No (Continue Screening) Comment: SCREEN: Signs and Symptoms: a. Fever: () Yes (x) No Comment(s): b. New or worsening cough or shortness of breath: () Yes Check all that apply: () Cough () Shortness of breath (x) No Comment(s): c. Any cold or flu-like symptoms: () Yes Check all that apply: () Cold like symptoms () Flu-like symptoms (x) No Comment(s): d. New onset diarrhea, nausea or vomiting: () Yes Check all that apply: () Diarrhea () Nausea () Vomiting (x) No Comment(s): e. New onset headache, loss of taste or loss of smell () Yes Check all that apply: () Headache () Loss of taste () Loss of smell (x) No Comment(s): EXPOSURE: Exposure within the last two weeks to someone with COVID-19: () Yes (x) No Comment(s): Screen Result: () POSITIVE symptom and requires further evaluation (x) Negative Screen () Screening could not be done due to not being present () declined screening /es/ [facility] Signed: 01/14/2021 10:[address] [facility]
--- OUTSIDE RECORDS SUMMARY | 2021-07-06 14:41 | XMS REPORT | Encounter Summary ---
Author Author Department [facility] FILIPE gallegos Organization Department [facility] Address Unknown Phone Unavailable Care Team Providers Care Box Feeder Name Role Phone NOLVIA NOEL PCP [...] Cedillo's Name Patient's Relationship to Policy Cedillo [facility]ICAL [facility] PLAN B Nov 13, 2001 [id number] [phone] MARELY FARRELL SPOUSE [place] ([id number]) PRESCRIPTION [place] [employer] EMPLOYEE Mar 05, 2003 [id number] [phone] MARELY FARRELL SPOUSE [place] [employer] [facility] Mar 05, 2003 [id number] [phone] MARELY FARRELL SPOUSE MEDICARE (WNR) MEDICARE (M) PART A Sep 13, 2001 PART A [id number] [phone] ALYCIAMOEHAYESY PATIENT MEDICARE (WNR) MEDICARE (M) PART B Sep 13, 2001 PART B [id number] [phone] FILIPE FARRELL PATIENT MEDICARE (WNR) MEDICARE (M) PART A Sep 13, 2001 PART A [id number] [phone] HAYES FARRELLY PATIENT MEDICARE (WNR) MEDICARE (M) PART B Sep 13, 2001 PART B [id number] 42A [phone] FILIPE FARRELL PATIENT MEDICARE (WNR) MEDICARE (M) PART A Sep 13, 2001 PART A [id number] [phone] FILIPE FARRELL PATIENT MEDICARE (WNR) MEDICARE (M) PART B Sep 13, 2001 PART B [id number] [phone] FILIPE FARRELL PATIENT Selected Encounter This section includes the information on record at [place] for the Encounter. Date/Time Encounter Type Encounter Description Reason Provider Source Jan 25, 2021 12:56 PM Outpatient Encounter ADMIN PAT ACTIVTIES (TOMMY ERIC) IHE Encounter Template Text not used by [place] Assessments - Encounter Diagnoses No Data Provided for This Section Plan of Treatment: Future Appointments (+ 6 months) and Future Tests (+/- 45 day s) The Plan of Treatment section includes future care activities for the patient fr om all [facility] facilities. This section includes future appointments and fu ture orders which are active, pending or scheduled. Future Appointments This section includes appointments that were scheduled t o occur 6 months from the date of the Encounter, up to a maximum of 20 appointme nts. The data comes from all [facility]. Appointment Date/Time Appointment Type Appointment Facili ty Name Feb 02, 2021 10:00 AM AMBULATORY - NONE [facility] Feb 02, 2021 11:00 AM AMBULATORY - MEDICINE [facility] May 10, 2021 02:30 PM AMBULATORY - PSYCHIATRY [facility] Jul 06, 2021 11:00 AM AMBUL[facility]ORY PS[facility]IATRY [facility] Jul 07, 2021 03:30 PM AMBULATORY MEDICINE [facility] Active, Pending, and Scheduled Orders [...] the Encounter. The data comes from all [facility]. Test Date/Time Test Type Test Details Facility Name Feb 02, 2021 12:00 AM Laboratory - Chemistry Order OCCULT BL OOD FIT x1 SCREEN STOOL FECES SP ONE-TIME [facility] Surgical Procedures: All associated to the encounter No Data Provided for This Section Lab Results: +/- 30 days of the encounter This section includes the Chemistry and Hematology Lab R esults on record with [place] for the patient. Radiology Reports and Pathology Report s are provided separately, in subsequent sections. Lab Results This section contains the Chemistry/Hematology Results lyric t were resulted 30 days before or 30 days after the date of the Encounter. Date/Time Source Result Type Result - Unit Interpretation Reference Range Comment Feb 02, 2021 10:00 AM [facility] URINALYSIS Speci men Type: URINE No comment entered. Ordering Provider: NOLVIA NOEL Report Released Date/Time: Jan 14, 2021 10:10 AM Reporting Lab: [address] [facility] [phone] Performing Lab: [address] [phone] UA COLOR YELLOW COLORLESS-YELLOW UA SPEC [...] Aida/uL NEG-74 Feb 02, 2021 10:00 AM [facility] B12 Speci men Type: SERUM No comment entered. Ordering Provider: NOLVIA NOEL Report Released Date/Time: Jan 14, 2021 10:10 AM Reporting Lab: [facility] [address] [facility] 7270 Performing Lab: [facility] [address] [facility] 7270 VITAMIN B12 (FV) 209 pg/mL 180-914 Feb 02, 2021 10:00 AM [facility] CBC Speci men Type: BLOOD No comment entered. Ordering Provider: NOLVIA NOEL Report Released Date/Time: Jan 14, 2021 10:10 AM Reporting Lab: [address] [facility] [phone] Performing Lab: [address] [phone] MPV (FV) 7.1 fL L 7.4-10.4 [...] K/cmm 0.0-0.2 Feb 02, 2021 10:00 AM [facility] GLYCO HGB A1C Speci men Type: BLOOD No comment entered. Ordering Provider: NOLVIA NOEL Report Released Date/Time: Jan 14, 2021 10:10 AM Reporting [facility] [address] [place] [address] Performing Lab: [facility] [address] [place] [address]35 Glyco Hgb A1C 8.4 % H 4.2-5.8 Feb 02, 2021 10:00 AM [facility] LIPID PROFILE Speci men Type: SERUM No comment entered. Ordering Provider: NOLVIA NOEL Report Released Date/Time: Jan 14, 2021 10:10 AM Reporting Lab: [facility] [address] [place] [address]35 Performing Lab: [address] [phone] CHOLESTEROL, TOTAL (FV) 279 mg/dL H 118-20 0 TRIGLYCERIDE (FV) 179 mg/dL H <150 LDL CHOLESTEROL (CALCULATED) 202 HDL CHOLESTEROL (FV) 41 mg/dL >40 Feb 02, 2021 10:00 AM [facility] MAGNESIUM Speci men Type: SERUM No comment entered. Ordering Provider: NOLVIA NOEL Report Released Date/Time: Jan 14, 2021 10:10 AM Reporting Lab: [address] [phone] Performing Lab: [address] [phone] MAGNESIUM (FV) 1.6 mg/dL L 1.8-2.4 Feb 02, 2021 10:00 AM [facility] VITAMIN D 25-OH Spec imen Type: SERUM No comment entered. Ordering Provider: NOLVIA NOEL Report Released Date/Time: Jan 14, 2021 10:10 AM Reporting Lab: [facility] [address] [place] [phone] Performing Lab: [facility] [address] [facility] 7270 VITAMIN D 25-OH 58.53 ng/mL 10.4-59.4 Feb 02, 2021 10:00 AM [facility] RENAL+LIVER PROFILE Specimen Type: SERUM No comment entered. Ordering Provider: NOLVIA NOEL Report Released Date/Time: Jan 14, 2021 10:10 AM Reporting Lab: [address] [phone] Performing Lab: [address] [phone] GLUCOSE (FV) 124 mg/dL H 70-110 [...] H .61-1.24 Feb 02, 2021 10:00 AM [facility] TSH (FV) Speci men Type: SERUM No comment entered. Ordering Provider: NOLVIA NOEL Report Released Date/Time: Jan 14, 2021 10:10 AM Reporting Lab: [facility] [address] [facility] 7270 Performing Lab: [facility] [address] [facility] 7270 TSH () 3.04 mcIU/mL 0.45-5.33 [...] 2009 09:30 AM V16 TOBACCO USE SCREEN [facility] Tobacco Use History This section includes a history of the smoking, or tobacco -related health factors, that were collected on or before the date of the Encoun ter. The data comes from the [place] facility where the Encounter took place. Date/Time Smoking Status/Tobacco Use Comment [facility] it March 18, 2009 09:30 AM V16 TOBACCO USE SCREEN [place] Jan 15, 2008 10:28 AM V16 TOBACCO CESSATION >7 YEA RS [facility] [place] Jan 15, 2008 10:28 AM V16 TOBACCO USE SCREEN [facility] April 06, 2007 08:47 AM V16 [...] of the Encounter. The data comes from [facility] treatment facilities. Date/Time Radiology Report Provider Source Feb 02, 2021 12:09 PM SPINE LUMBOSACRAL MIN 6 VIEW S: FILIPE FARRELL [id number] [id number] M Exm Date: FEB 02, 2021@12:09 Req Phys: NOLVIA NOEL Loc: [facility] TM 3 (Req'g Loc) Img Loc: [facility] RAD[facility] Service: Unknown (Case [id number] COMPLETE) SPINE LUM BOSACRAL MIN 6 VIEWS (RAD Detailed) CPT:03343 Reason for Study: low back pain Clinical History: Report Status: Verified Date Reported: FEB 03, 2021 Date Verified: FEB 03, 2021 Blasting Contract Man E-Sig:/ES/ALICIA BARBOUR Report: PROCEDURE: SPINE LUMBOSACRAL MIN [...] Primary Interpreting Staff: ALICIA BARBOUR, Staff Physician (Blasting Contract Man) /ALICIA YUSUF [facility] Pathology Reports: +/- 30 days of the encounter No Data Provided for This Section Encounter Notes: All associated encounter notes This section contains the clinical notes associated to the Encounter. Date/Time Encounter Note(s) Provider Source Jan 25, 2021 12:56 PM ADMINISTRATIVE NOTE: LOCAL TITLE: ADMINISTRATIVE NOTE STANDARD TITLE: ADMINISTRATIVE NOTE DATE OF NOTE: JAN 25, 2021@12:56 ENTRY DATE: JAN 25, 2021@12:56:31 AUTHOR: KELVIN GARCIAIGNER: URGENCY: STATUS: COMPLETED Clinical Contact/Call Center Coronavirus Disease 2019 (COVID-19) Screen, katelin. June 01, 2020 DIAGNOSIS AND TESTING STATUS: Has been diagnosed with COVID-19: () Yes* Date: (*No Furthe r Screening Required) (x) No (Continue Screening) Comment(s): Is [place] waiting for COVID-19 test results: () Yes [...] with COVID-19: () Yes (x) No Comment(s): SCREEN RESULT: Any symptom or exposure= positive screen () POSITIVE SCREEN: Patient has a Posit xavier symptom and/or exposure. Follow- up required. (x) Negative Screen () not present for screening () refused screening /es/ [facility] Signed: 01/25/2021 12:[address] [facility]
--- OUTSIDE RECORDS SUMMARY | 2021-07-06 14:41 | XMS REPORT | Encounter Summary ---
Author Author Department [facility] FILIPE gallegos Organization Department [facility] Address Unknown Phone Unavailable Care Team Providers Care Day Haul Youth Supervisor Name Role Phone NOLVIA NOEL PCP [...] Cedillo's Name Patient's Relationship to Policy Cedillo [facility] PLAN B Nov 13, 2001 [id number] [phone] MARELY FARRELL SPOUSE [place] ([id number]) PRESCRIPTION [place] [employer] EMPLOYEE Mar 05, 2003 [id number] [phone] MARELY FARRELL SPOUSE [employer] [employer] [facility] Mar 05, 2003 [id number] [phone] MARELY FARRELL SPOUSE MEDICARE (WNR) MEDICARE (M) PART A Sep 13, 2001 PART A [id number] [id number] ALYCIAMOEHAYESY PATIENT MEDICARE (WNR) MEDICARE (M) PART B Sep 13, 2001 PART B [id number] [id number] FILIPE FARRELL PATIENT MEDICARE (WNR) MEDICARE (M) PART A Sep 13, 2001 PART A [id number] [id number] HAYES FARRELLY PATIENT MEDICARE (WNR) MEDICARE (M) PART B Sep 13, 2001 PART B [id number] [id number] IFLIPE FARRELL PATIENT MEDICARE (WNR) MEDICARE (M) PART A Sep 13, 2001 PART A [id number] [phone] FILIPE FARRELL PATIENT MEDICARE (WNR) MEDICARE (M) PART B Sep 13, 2001 PART B [id number] [id number] FILIPE FARRELL PATIENT Selected Encounter This section includes the information on record at [place] for the Encounter. Date/Time Encounter Type Encounter Description Reason Provider Source Jan 25, 2021 12:43 PM Outpatient Encounter ADMIN PAT ACTIVTIES (TOMMY ERIC) IHE Encounter Template Text not used by [place] Assessments - Encounter Diagnoses No Data Provided [...] appointme nts. The data comes from all [facility]. Appointment Date/Time Appointment Type Appointment Facili ty Name Feb 02, 2021 10:00 AM AMBULATORY - NONE [facility] Feb 02, 2021 11:00 AM AMBULATORY - MEDICINE [facility] May 10, 2021 02:30 PM AMBULATORY - PSYCHIATRY [facility] Jul 06, 2021 11:00 AM AMBULATORY PSYCHIATRY [facility] Jul 07, 2021 03:30 PM AMBULATORY MEDICINE [facility] Active, Pending, and Scheduled Orders This [...] the Encounter. The data comes from all [facility]. Test Date/Time Test Type Test Details Facility Name Feb 02, 2021 12:00 AM Laboratory - Chemistry Order OCCULT BL OOD FIT x1 SCREEN STOOL FECES SP ONE-TIME [facility] Surgical Procedures: All associated to the encounter No Data Provided for This Section Lab Results: +/- 30 days of the encounter This section includes the Chemistry and Hematology Lab R esults on record with [place] for the patient. Radiology Reports and Pathology Report s are provided separately, in subsequent sections. Lab Results This section contains the Chemistry/Hematology Results lyric t were resulted 30 days before or 30 days after the date of the Encounter. Date/Time Source Result Type Result - Unit Interpretation Reference Range Comment Feb 02, 2021 10:00 AM [facility] URINALYSIS Speci men Type: URINE No comment entered. Ordering Provider: NOLVIA NOEL Report Released Date/Time: Jan 14, 2021 10:10 AM Reporting Lab: [address] [facility] [id number] Performing Lab: [address] [phone] UA COLOR YELLOW COLORLESS-YELLOW UA SPEC [...] Aida/uL NEG-74 Feb 02, 2021 10:00 AM [facility] B12 Speci men Type: SERUM No comment entered. Ordering Provider: NOLVIA NOEL Report Released Date/Time: Jan 14, 2021 10:10 AM Reporting Lab: [facility] [address] [facility] 7270 Performing Lab: [facility] [address] [facility] 7270 VITAMIN B12 (FV) 209 pg/mL 180-914 Feb 02, 2021 10:00 AM [facility] CBC Speci men Type: BLOOD No comment entered. Ordering Provider: NOLVIA NOEL Report Released Date/Time: Jan 14, 2021 10:10 AM Reporting Lab: [address] [facility] [id number]35 Performing Lab: [address] [phone] MPV (FV) 7.1 fL L 7.4-10.4 [...] K/cmm 0.0-0.2 Feb 02, 2021 10:00 AM [facility] GLYCO HGB A1C Speci men Type: BLOOD No comment entered. Ordering Provider: NOLVIA NOEL Report Released Date/Time: Jan 14, 2021 10:10 AM Reporting Lab: [facility] [address] [place] [address]35 Performing Lab: [facility] [address] [place] [address]35 Glyco Hgb A1C 8.4 % H 4.2-5.8 Feb 02, 2021 10:00 AM [facility] LIPID PROFILE Speci men Type: SERUM No comment entered. Ordering Provider: NOLVIA NOEL Report Released Date/Time: Jan 14, 2021 10:10 AM Reporting Lab: [facility] [address] [place] [address]35 Performing Lab: [address] [id number] CHOLESTEROL, TOTAL (FV) 279 mg/dL H 118-20 0 TRIGLYCERIDE (FV) 179 mg/dL H <150 LDL CHOLESTEROL (CALCULATED) 202 HDL CHOLESTEROL (FV) 41 mg/dL >40 Feb 02, 2021 10:00 AM [facility] MAGNESIUM Speci men Type: SERUM No comment entered. Ordering Provider: NOLVIA NOEL Report Released Date/Time: Jan 14, 2021 10:10 AM Reporting Lab: [address] [phone] Performing Lab: [address] [phone] MAGNESIUM (FV) 1.6 mg/dL L 1.8-2.4 Feb 02, 2021 10:00 AM [facility] VITAMIN D 25-OH Spec imen Type: SERUM No comment entered. Ordering Provider: NOLVIA NOEL Report Released Date/Time: Jan 14, 2021 10:10 AM Reporting Lab: [facility] [address] [place] [id number] Performing Lab: [facility] [address] [facility] [address] [facility] 7270 VITAMIN D 25-OH 58.53 ng/mL 10.4-59.4 Feb 02, 2021 10:00 AM [facility] RENAL+LIVER PROFILE Specimen Type: SERUM No comment entered. Ordering Provider: NOLVIA NOEL Report Released Date/Time: Jan 14, 2021 10:10 AM Reporting Lab: [address] [phone] Performing Lab: [address] [id number]35 GLUCOSE (FV) 124 mg/dL H 70-110 [...] H .61-1.24 Feb 02, 2021 10:00 AM [facility] TSH (FV) Speci men Type: SERUM No comment entered. Ordering Provider: NOLVIA NOEL Report Released Date/Time: Jan 14, 2021 10:10 AM Reporting Lab: [facility] [address] [facility] 7270 Performing Lab: [facility] [address] [facility] 7270 TSH () 3.04 mcIU/mL 0.45-5.33 [...] and tobacco- related health factors from the [place] facility where the Encounter took place. Current Smoking Status This section includes the most current smoking, or tobacco -related health factor, from the [place] facility where the Encounter took place. Date/Time Current Smoking Status Comment Facility March 18, 2009 09:30 AM V16 TOBACCO USE SCREEN [facility] Tobacco Use History This section includes a history of the smoking, or tobacco -related health factors, that were collected on or before the date of the Encoun ter. The data comes from the [place] facility where the Encounter took place. Date/Time Smoking Status/Tobacco Use Comment [facility] it March 18, 2009 09:30 AM V16 TOBACCO USE SCREEN [place] Jan 15, 2008 10:28 AM V16 TOBACCO CESSATION >7 YEA RS 30 years [facility] [place] Jan 15, 2008 10:28 AM V16 TOBACCO USE SCREEN [facility] April 06, 2007 08:47 AM V16 [...] of the Encounter. The data comes from [facility] treatment facilities. Date/Time Radiology Report Provider Source Feb 02, 2021 12:09 PM SPINE LUMBOSACRAL MIN 6 VIEW S: FILIPE FARRELL [id number] -1945 M Exm Date: FEB 02, 2021@12:09 Req Phys: NOLVIA NOEL Loc: [facility] TM 3 (Req'g Loc) Img Loc: [facility] Service: Unknown (Case [id number] COMPLETE) SPINE LUM BOSACRAL MIN 6 VIEWS (RAD Detailed) CPT:01510 Reason for Study: low back pain Clinical History: Report Status: Verified Date Reported: FEB 03, 2021 Date Verified: FEB 03, 2021 Respiratory Therapy Aide E-Sig:/ES/ALICIA BARBOUR Report: PROCEDURE: SPINE LUMBOSACRAL MIN [...] Primary Interpreting Staff: ALICIA BARBOUR, Staff Physician (Respiratory Therapy Aide) /ALICIA YUSUF [facility] Pathology Reports: +/- 30 days of the encounter No Data Provided for This Section Encounter Notes: All associated encounter notes This section contains the clinical notes associated to the Encounter. Date/Time Encounter Note(s) Provider Source Jan 25, 2021 12:43 PM ADMINISTRATIVE NOTE: LOCAL TITLE: COVID VACCINE SCHEDULING NOTE STANDARD TITLE: ADMINISTRATIVE NOTE DATE OF NOTE: JAN 25, 2021@12:43 ENTRY DATE: JAN 25, 2021@12:43:15 AUTHOR: ANUSHA REYNOLDS EXP COSIGNER: URGENCY: STATUS: COMPLETED COVID VACCINE SCHEDULING NOTE Has ADDENDA Called patient to schedule COVID Vaccine appointment Left voicemail Message left please call [phone] COVID Pull appt made for follow-up 01/28/2021 /anisa/ ANUSHA REYNOLDS [facility] URIEL Signed: 01/25/2021 12:43 02/01/2021 ADDENDUM STATUS: COMPLETED Stella declines at this time. Will call if he decides to take one. /charles REYNOLDS [facility] MURPHYTGIGI Signed: 02/01/2021 12:22 ANUSHA REYNOLDS [facility]
--- OUTSIDE RECORDS SUMMARY | 2021-07-06 14:42 | XMS REPORT | Encounter Summary ---
Author Author Department [facility] FILIPE gallegos Organization Department [facility] Address Unknown Phone Unavailable Care Team Providers Care Senior Principal Architect Name Role Phone NOLVIA NOEL PCP Unavailable [...] Cedillo's Name Patient's Relationship to Policy Cedillo [facility] PLAN B Nov 13, 2001 [id number] [phone] MARELY FARRELL SPOUSE [employer] ([id number]) PRESCRIPTION [place] [employer] EMPLOYEE Mar 05, 2003 [id number] [phone] MARELY FARRELL SPOUSE [place] [employer] D[employer]URANCE [facility] Mar 05, 2003 [id number] [phone] MARELY FARRELL SPOUSE MEDICARE (WNR) MEDICARE (M) PART A Sep 13, 2001 PART A [id number] [id number] BUDFILIPE PATIENT MEDICARE (WNR) MEDICARE (M) PART B Sep 13, 2001 PART B [id number] 42A [id number] FILIPE FARRELL PATIENT MEDICARE (WNR) MEDICARE (M) PART A Sep 13, 2001 PART A [id number] [phone] FILIPE FARRELL PATIENT MEDICARE (WNR) MEDICARE (M) PART B Sep 13, 2001 PART B [id number] [phone] FILIPE FARRELL PATIENT MEDICARE (WNR) MEDICARE (M) PART A Sep 13, 2001 PART A [id number] 42A [phone] FILIPE FARRELL PATIENT MEDICARE (WNR) MEDICARE (M) PART B Sep 13, 2001 PART B [id number] [phone] FILIPE FARRELL PATIENT Selected Encounter This section includes the information on record at [place] for the Encounter. Date/Time Encounter Type Encounter Description Reason Provider Source Jan 13, 2021 09:40 AM Outpatient Encounter ADMIN PAT ACTIVTIES (TOMMY ERIC) IHE Encounter Template Text not used by [place] Assessments - Encounter Diagnoses No Data Provided for This Section Plan of Treatment: Future Appointments (+ 6 months) and Future Tests (+/- 45 day s) The Plan of Treatment section includes future care activities for the patient fr om all [facility] facilities. This section includes future appointments and fu ture orders which are active, pending or scheduled. Future Appointments This section includes appointments that were scheduled t o occur 6 months from the date of the Encounter, up to a maximum of 20 appointme nts. The data comes from all [facility]. Appointment Date/Time Appointment Type Appointment Facili ty Name Feb 02, 2021 10:00 AM AMBULATORY - NONE [facility] Feb 02, 2021 11:00 AM AMBULATORY - MEDICINE [facility] May 10, 2021 02:30 PM AMBULATORY - PSYCHIATRY [facility] Jul 06, 2021 11:00 AM AMBULATORY PS[facility]CHIATRY [facility] Jul 07, 2021 03:30 PM AMBULATORY MEDICINE [facility] Active, Pending, and Scheduled [...] the Encounter. The data comes from all [facility]. Test Date/Time Test Type Test Details Facility Name Feb 02, 2021 12:00 AM Laboratory - Chemistry Order OCCULT BL OOD FIT x1 SCREEN STOOL FECES SP ONE-TIME [facility] Surgical Procedures: All associated to the encounter No Data Provided for This Section Lab Results: +/- 30 days of the encounter This section includes the Chemistry and Hematology Lab R esults on record with [place] for the patient. Radiology Reports and Pathology Report s are provided separately, in subsequent sections. Lab Results This section contains the Chemistry/Hematology Results lyric t were resulted 30 days before or 30 days after the date of the Encounter. Date/Time Source Result Type Result - Unit Interpretation Reference Range Comment Feb 02, 2021 10:00 AM [facility] URINALYSIS Speci men Type: URINE No comment entered. Ordering Provider: NOLVIA NOEL Report Released Date/Time: Jan 14, 2021 10:10 AM Reporting Lab: [address] [facility] [phone] Performing Lab: [address] [address] UA COLOR YELLOW COLORLESS-YELLOW UA SPEC [...] Aida/uL NEG-74 Feb 02, 2021 10:00 AM [facility] B12 Speci men Type: SERUM No comment entered. Ordering Provider: NOLVIA NOEL Report Released Date/Time: Jan 14, 2021 10:10 AM Reporting Lab: [facility] [address] [facility] 7270 Performing Lab: [facility] [address] [facility] 7270 VITAMIN B12 (FV) 209 pg/mL 180-914 Feb 02, 2021 10:00 AM [facility] CBC Speci men Type: BLOOD No comment entered. Ordering Provider: NOLVIA NOEL Report Released Date/Time: Jan 14, 2021 10:10 AM Reporting Lab: [address] [facility] [address]35 Performing Lab: [address] [phone] MPV (FV) 7.1 fL L 7.4-10.4 [...] K/cmm 0.0-0.2 Feb 02, 2021 10:00 AM [facility] GLYCO HGB A1C Speci men Type: BLOOD No comment entered. Ordering Provider: NOLVIA NOEL Report Released Date/Time: Jan 14, 2021 10:10 AM Reporting Lab: [facility] [address] [place] [address] Performing Lab: [facility] [address] [place] [address]1 035 Glyco Hgb A1C 8.4 % H 4.2-5.8 Feb 02, 2021 10:00 AM [facility] LIPID PROFILE Speci men Type: SERUM No comment entered. Ordering Provider: NOLVIA NOEL Report Released Date/Time: Jan 14, 2021 10:10 AM Reporting Lab: [facility] [address] [place] [address]35 Performing Lab: [address] [address] CHOLESTEROL, TOTAL (FV) 279 mg/dL H 118-20 0 TRIGLYCERIDE (FV) 179 mg/dL H <150 LDL CHOLESTEROL (CALCULATED) 202 HDL CHOLESTEROL (FV) 41 mg/dL >40 Feb 02, 2021 10:00 AM [facility] MAGNESIUM Speci men Type: SERUM No comment entered. Ordering Provider: NOLVIA NOEL Report Released Date/Time: Jan 14, 2021 10:10 AM Reporting Lab: [address] [phone] Performing Lab: [address] [address]35 MAGNESIUM (FV) 1.6 mg/dL L 1.8-2.4 Feb 02, 2021 10:00 AM [facility] VITAMIN D 25-OH Spec imen Type: SERUM No comment entered. Ordering Provider: NOLVIA NOEL Report Released Date/Time: Jan 14, 2021 10:10 AM Reporting Lab: [facility] [address] [place] [id number] Performing Lab: [facility] [address] [facility] [address] [facility] 7270 VITAMIN D 25-OH 58.53 ng/mL 10.4-59.4 Feb 02, 2021 10:00 AM [facility] RENAL+LIVER PROFILE Specimen Type: SERUM No comment entered. Ordering Provider: NOLVIA NOEL Report Released Date/Time: Jan 14, 2021 10:10 AM Reporting Lab: [address] [address]35 Performing Lab: [address] [address] GLUCOSE (FV) 124 mg/dL H 70-110 [...] H .61-1.24 Feb 02, 2021 10:00 AM [facility] TSH (FV) Speci men Type: SERUM No comment entered. Ordering Provider: NOLVIA NOEL Report Released Date/Time: Jan 14, 2021 10:10 AM Reporting Lab: [facility] [address] [facility] 7270 Performing Lab: [facility] [address] [facility] 7270 TSH () 3.04 mcIU/mL [...] and tobacco- related health factors from the [place] facility where the Encounter took place. Current Smoking Status This section includes the most current smoking, or tobacco -related health factor, from the [place] facility where the Encounter took place. Date/Time Current Smoking Status Comment Facility March 18, 2009 09:30 AM V16 TOBACCO USE SCREEN [facility] Tobacco Use History This section includes a history of the smoking, or tobacco -related health factors, that were collected on or before the date of the Encoun ter. The data comes from the [place] facility where the Encounter took place. Date/Time Smoking Status/Tobacco Use Comment [facility] it March 18, 2009 09:30 AM V16 TOBACCO USE SCREEN SID [place] Jan 15, 2008 10:28 AM V16 TOBACCO CESSATION >7 YEA RS 30 [facility] [place] Jan 15, 2008 10:28 AM V16 TOBACCO USE SCREEN [facility] April 06, 2007 08:47 AM [...] of the Encounter. The data comes from [facility] treatment facilities. Date/Time Radiology Report Provider Source Feb 02, 2021 12:09 PM SPINE LUMBOSACRAL MIN 6 VIEW S: FILIPE FARRELL [id number] -1945 M Exm Date: FEB 02, 2021@12:09 Req Phys: NOLVIA NOEL Loc: [facility] TM 3 (Req'g Loc) Img Loc: [facility] Service: Unknown (Case [id number] COMPLETE) SPINE LUM BOSACRAL MIN 6 VIEWS (RAD Detailed) CPT:80063 Reason for Study: low back pain Clinical History: Report Status: Verified Date Reported: FEB 03, 2021 Date Verified: FEB 03, 2021 Conveyor Line Battery Charger E-Sig:/ES/ALICIA BARBOUR Report: PROCEDURE: SPINE LUMBOSACRAL MIN [...] Primary Interpreting Staff: ALICIA BARBOUR, Staff Physician (Conveyor Line Battery Charger) /ALICIA YUSUF [facility] Pathology Reports: +/- 30 days of the encounter No Data Provided for This Section Encounter Notes: All associated encounter notes This section contains the clinical notes associated to the Encounter. Date/Time Encounter Note(s) Provider Source Jan 13, 2021 09:40 AM ADMINISTRATIVE NOTE: LOCAL TITLE: ADMINISTRATIVE NOTE STANDARD TITLE: ADMINISTRATIVE NOTE DATE OF NOTE: JAN 13, 2021@09:40 ENTRY DATE: JAN 13, 2021@09:40:15 AUTHOR: FRANCI ZUNIGAIGNER: URGENCY: STATUS: COMPLETED Clinical Contact/Call Center Coronavirus Disease 2019 (COVID-19) Screen, katelin. June 01, 2020 DIAGNOSIS AND TESTING STATUS: Has Whigham been diagnosed with COVID-19: () Yes* Date: (*No Further Screening Required) (x) No (Continue Screening) Comment(s): Is Whigham waiting for COVID-19 test results: () Yes [...] screen () POSITIVE SCREEN: Patient has a Positive symptom and/or exposure. Follow-up required. (x) Negative Screen A positive screen is defined as a Yes response to any symptom question. ()PATIENT DECLINED SCREENING ()SCREENING COULD NOT BE COMPLETED JASSON DUMONT NOT PRESENT /anisa/ FR[facility]CI [facility]A [facility] Signed: 01/13/2021 09:40 FRANCI ZUNIGA [facility]
--- OUTSIDE RECORDS SUMMARY | 2021-07-06 14:43 | XMS REPORT ---
Author Author Department [facility] FILIPE gallegos Organization Department [facility] Address Unknown Phone Unavailable Care Team Providers Care Juvenile Detention Officer Name Role Phone NOLVIA NOEL PCP Unavailable [...] Cedillo's Name Patient's Relationship to Policy Cedillo [facility] MEDICAL [facility] PLAN B Nov 13, 2001 [id number] [phone] MARELY FARRELL SPOUSE [place] ([id number]) PRESCRIPTION [place] [employer] EMPLOYEE Mar 05, 2003 [id number] [phone] MARELY FARRELL SPOUSE [place] [employer] [facility] Mar 05, 2003 [id number] [id number] [phone] MARELY FARRELL SPOUSE MEDICARE (WNR) MEDICARE (M) PART A Sep 13, 2001 PART A [id number] [phone] ALYCIAMOEHAYESY PATIENT MEDICARE (WNR) MEDICARE (M) PART B Sep 13, 2001 PART B [id number] [phone] FILIPE FARRELL PATIENT MEDICARE (WNR) MEDICARE (M) PART A Sep 13, 2001 PART A [id number] HAYES FARRELLY PATIENT MEDICARE (WNR) MEDICARE (M) PART B Sep 13, 2001 PART B [id number] [phone] FILIPE FARRELL PATIENT MEDICARE (WNR) MEDICARE (M) PART A Sep 13, 2001 PART A [id number] [phone] FILIPE FARRELL PATIENT MEDICARE (WNR) MEDICARE (M) PART B Sep 13, 2001 PART B [id number] 42A [id number] FILIPE FARRELL PATIENT Selected Encounter This section includes the information on record at [place] for the Encounter. Date/Time Encounter Type Encounter Description Reason Provider Source Dec 24, 2020 09:12 AM Outpatient Encounter ADMIN PAT ACTIVTIES (TOMMY ERIC) IHE Encounter Template Text not used by [place] Assessments - Encounter Diagnoses No Data Provided for This Section Plan of Treatment: Future Appointments (+ 6 months) and Future Tests (+/- 45 day s) The Plan of Treatment section includes future care activities for the patient fr om all [facility] facilities. This section includes future appointments and fu ture orders which are active, pending or scheduled. Future Appointments This section includes appointments that were scheduled t o occur 6 months from the date of the Encounter, up to a maximum of 20 appointme nts. The data comes from all [facility]. Appointment Date/Time Appointment Type Appointment Facili ty Name Feb 02, 2021 10:00 AM AMBULATORY - NONE [facility] Feb 02, 2021 11:00 AM AMBULATORY - MEDICINE [facility] May 10, 2021 02:30 PM AMBULATORY - PS[facility]RY [facility] Active, Pending, and Scheduled Orders This section [...] the Encounter. The data comes from all [facility]. Test Date/Time Test Type Test Details Facility Name Feb 02, 2021 12:00 AM Laboratory - Chemistry Order OCCULT BL OOD FIT x1 SCREEN STOOL FECES SP ONE-TIME [facility] Surgical Procedures: All associated to the [...] and tobacco- related health factors from the [place] facility where the Encounter took place. Current Smoking Status This section includes the most current smoking, or tobacco -related health factor, from the [place] facility where the Encounter took place. Date/Time Current Smoking Status Comment Facility March 18, 2009 09:30 AM V16 TOBACCO USE SCREEN RONYS[facility] KOBI Tobacco Use History This section includes a history of the smoking, or tobacco -related health factors, that were collected on or before the date of the Encoun ter. The data comes from the [place] facility where the Encounter took place. Date/Time Smoking Status/Tobacco Use Comment Facil it March 18, 2009 09:30 AM V16 TOBACCO USE SCREEN [place] [facility] Jan 15, 2008 10:28 AM V16 TOBACCO CESSATION >7 YEA RS 30 years RONYSID [place] Jan 15, 2008 10:28 AM V16 TOBACCO USE SCREEN [facility] April 06, 2007 08:47 AM V16 TOBACCO CESSATION >7 YEARS RONYJUAN BOSCHCAROL PA April 06, 2007 08:47 AM V16 TOBACCO USE SCREEN [facility] Oct 27, 2006 09:44 AM V16 TOBACCO CESSATION > 12 MONTHS FA MARTIRJAMIE PA Oct 27, 2006 09:44 AM V16 TOBACCO USE SCREEN [facility] [place] May 08, 2006 11:26 AM TOBACCO CESSATION: >10 YEARS RONYPAVELE JAMIE PA Apr 20, 2005 11:15 AM TOBACCO CESSATION: >10 YEARS RONYRISHABHTTE JAMIE PA Feb 02, 2004 02:41 PM TOBACCO CESSATION: >10 YEARS RONYYETTE JAMIE PA Apr 26, 2001 08:56 AM TOBACCO CESSATION: >10 YEARS RONYYETTE JAMIE PA Advance Directives: All historical and current No Data Provided for This Section Radiology Reports: +/- 30 days of the encounter No Data Provided for This Section Pathology Reports: +/- 30 days of the encounter No Data Provided for This Section Encounter Notes: All associated encounter notes This section contains the clinical notes associated to the Encounter. Date/Time Encounter Note(s) Provider Source Dec 24, 2020 09:12 AM ADMINISTRATIVE NOTE: LOCAL TITLE: ADMINISTRATIVE NOTE STANDARD TITLE: ADMINISTRATIVE NOTE DATE OF NOTE: DEC 24, 2020@09:12 ENTRY DATE: DEC 24, 2020@09:12:20 AUTHOR: ARASH WATSON EXP COSIGNER: URGENCY: STATUS: COMPLETED [place] calling to cancel today's appts. for lab and DrNimo He is requesting return call for rescheduling and can be reached at . /es/ ARASH WATSON [facility] Signed: 12/24/2020 09:13 Receipt Acknowledged By: * AWAITING SIGNATURE * SOMMER CHANDRA STACY R [facility]
--- OUTSIDE RECORDS SUMMARY | 2021-07-06 14:43 | XMS REPORT | Encounter Summary ---
Author Author Department [facility] FILIPE gallegos Organization Department [facility] Address Unknown Phone Unavailable Care Team Providers Care Time Study Technician Name Role Phone NOLVIA NOEL PCP Unavailable [...] Cedillo's Name Patient's Relationship to Policy Cedillo [facility] MEDICAL [facility] PLAN B Nov 13, 2001 [id number] [phone] MARELY FARRELL SPOUSE [place] ([id number]) PRESCRIPTION [place] [employer] EMPLOYEE Mar 05, 2003 [id number] [phone] MARELY FARRELL SPOUSE [employer] [employer] [facility] Mar 05, 2003 [id number] [phone] MARELY FARRELL SPOUSE MEDICARE (WNR) MEDICARE (M) PART A Sep 13, 2001 PART A [id number] [phone] BUDFILIPE PATIENT MEDICARE (WNR) MEDICARE (M) PART B Sep 13, 2001 PART B [id number] 42A [id number] FILIPE FARRELL PATIENT MEDICARE (WNR) MEDICARE (M) PART A Sep 13, 2001 PART A [id number] 42A [phone] FILIPE FARRELL PATIENT MEDICARE (WNR) MEDICARE (M) PART B Sep 13, 2001 PART B [id number] [phone] FILIPE FARRELL PATIENT MEDICARE (WNR) MEDICARE (M) PART A Sep 13, 2001 PART A [id number] [phone] FILIPE FARRELL PATIENT MEDICARE (WNR) MEDICARE (M) PART B Sep 13, 2001 PART B [id number] 42A [phone] FILIPE FARRELL PATIENT Selected Encounter This section includes the information on record at [facility] for the Encounter. Date/Time Encounter Type Encounter Description Reason Provider Source Jan 12, 2021 12:47 PM Outpatient Encounter ADMIN PAT ACTIVTIES (TOMMY ERIC) IHE Encounter Template Text not used by [facility] Assessments - Encounter Diagnoses No Data Provided for This Section Plan of Treatment: Future Appointments (+ 6 months) and Future Tests (+/- 45 day s) The Plan of Treatment section includes future care activities for the patient fr om all [facility] facilities. This section includes future appointments and fu ture orders which are active, pending or scheduled. Future Appointments This section includes appointments that were scheduled t o occur 6 months from the date of the Encounter, up to a maximum of 20 appointme nts. The data comes from all [facility]. Appointment Date/Time Appointment Type Appointment Facili ty Name Feb 02, 2021 10:00 AM AMBULATORY - NONE [facility] Feb 02, 2021 11:00 AM AMBULATORY - MEDICINE [facility] May 10, 2021 02:30 PM AMBULATORY - [facility]RY [facility] Jul 06, 2021 11:00 AM AMBUL[facility]ORY [facility]RY [facility] Jul 07, 2021 03:30 PM AMBULATORY MEDICINE [facility] Active, Pending, and Scheduled Orders This section [...] Encounter. The data comes from all [facility]. Test Date/Time Test Type Test Details Facility Name Feb 02, 2021 12:00 AM Laboratory - Chemistry Order OCCULT BL OOD FIT x1 SCREEN STOOL FECES SP ONE-TIME [facility] Surgical Procedures: All associated to the encounter No Data Provided for This Section Lab Results: +/- 30 days of the encounter This section includes the Chemistry and Hematology Lab R esults on record with [facility] for the patient. Radiology Reports and Pathology Report s are provided separately, in subsequent sections. Lab Results This section contains the Chemistry/Hematology Results lyric t were resulted 30 days before or 30 days after the date of the Encounter. Date/Time Source Result Type Result - Unit Interpretation Reference Range Comment Feb 02, 2021 10:00 AM [facility] URINALYSIS Speci men Type: URINE No comment entered. Ordering Provider: NOLVIA NOEL Report Released Date/Time: Jan 14, 2021 10:10 AM Reporting Lab: [address] [facility] [phone] Performing Lab: [address] [phone] UA COLOR YELLOW COLORLESS-YELLOW UA SPEC [...] Aida/uL NEG-74 Feb 02, 2021 10:00 AM [facility] B12 Speci men Type: SERUM No comment entered. Ordering Provider: NOLVIA NOEL Report Released Date/Time: Jan 14, 2021 10:10 AM Reporting Lab: [facility] [address] [facility] 7270 Performing Lab: [facility] [address] [facility] [address] VITAMIN B12 (FV) 209 pg/mL 180-914 Feb 02, 2021 10:00 AM [facility] CBC Speci men Type: BLOOD No comment entered. Ordering Provider: NOLVIA NOEL Report Released Date/Time: Jan 14, 2021 10:10 AM Reporting Lab: [address] [facility] [phone] Performing Lab: [address] [phone] MPV (FV) 7.1 fL L 7.4-10.4 [...] K/cmm 0.0-0.2 Feb 02, 2021 10:00 AM [facility] GLYCO HGB A1C Speci men Type: BLOOD No comment entered. Ordering Provider: NOLVIA NOEL Report Released Date/Time: Jan 14, 2021 10:10 AM Reporting Lab: [facility] [address] [place] [address] Performing Lab: [facility] [address] [place] [address] Glyco Hgb A1C 8.4 % H 4.2-5.8 Feb 02, 2021 10:00 AM [facility] LIPID PROFILE Speci men Type: SERUM No comment entered. Ordering Provider: NOLVIA NOEL Report Released Date/Time: Jan 14, 2021 10:10 AM Reporting Lab: [facility] [address] [place] [address] Performing Lab: [address] [phone] CHOLESTEROL, TOTAL (FV) 279 mg/dL H 118-20 0 TRIGLYCERIDE (FV) 179 mg/dL H <150 LDL CHOLESTEROL (CALCULATED) 202 HDL CHOLESTEROL (FV) 41 mg/dL >40 Feb 02, 2021 10:00 AM [facility] MAGNESIUM Speci men Type: SERUM No comment entered. Ordering Provider: NOLVIA NOEL Report Released Date/Time: Jan 14, 2021 10:10 AM Reporting Lab: [address] [phone] Performing Lab: [address] [phone] MAGNESIUM (FV) 1.6 mg/dL L 1.8-2.4 Feb 02, 2021 10:00 AM [facility] VITAMIN D 25-OH Spec imen Type: SERUM No comment entered. Ordering Provider: NOLVIA NOEL Report Released Date/Time: Jan 14, 2021 10:10 AM Reporting Lab: [facility] [address] [place] [id number] Performing Lab: [facility] [address] [facility] [address] [facility] 7[address] VITAMIN D 25-OH 58.53 ng/mL 10.4-59.4 Feb 02, 2021 10:00 AM [facility] RENAL+LIVER PROFILE Specimen Type: SERUM No comment entered. Ordering Provider: NOLVIA NOEL Report Released Date/Time: Jan 14, 2021 10:10 AM Reporting Lab: [address] [phone] Performing Lab: [address] [phone] GLUCOSE (FV) 124 mg/dL H 70-110 [...] H .61-1.24 Feb 02, 2021 10:00 AM [facility] TSH (FV) Speci men Type: SERUM No comment entered. Ordering Provider: NOLVIA NOEL Report Released Date/Time: Jan 14, 2021 10:10 AM Reporting Lab: [facility] [address] [facility] 7270 Performing Lab: [facility] [address] [facility] [address] TSH () 3.04 mcIU/mL 0.45-5.33 [...] and tobacco- related health factors from the [facility] facility where the Encounter took place. Current Smoking Status This section includes the most current smoking, or tobacco -related health factor, from the [facility] facility where the Encounter took place. Date/Time Current Smoking Status Comment Facility March 18, 2009 09:30 AM V16 TOBACCO USE SCREEN [facility] Tobacco Use History This section includes a history of the smoking, or tobacco -related health factors, that were collected on or before the date of the Encoun ter. The data comes from the [place] facility where the Encounter took place. Date/Time Smoking Status/Tobacco Use Comment [facility] it March 18, 2009 09:30 AM V16 TOBACCO USE SCREEN [place] Jan 15, 2008 10:28 AM V16 TOBACCO CESSATION >7 YEA RS 30 [facility] Jan 15, 2008 10:28 AM V16 TOBACCO USE SCREEN [facility] April 06, 2007 08:47 AM V16 [...] of the Encounter. The data comes from [facility] treatment facilities. Date/Time Radiology Report Provider Source Feb 02, 2021 12:09 PM SPINE LUMBOSACRAL MIN 6 VIEW S: FILIPE FARRELL [id number] -[phone] M Exm Date: FEB 02, 2021@12:09 Req Phys: NOLVIA NOEL Loc: [facility] TM 3 (Req'g Loc) Img Loc: [facility] Service: Unknown (Case [id number] COMPLETE) SPINE LUM BOSACRAL MIN 6 VIEWS (RAD Detailed) CPT:02613 Reason for Study: low back pain Clinical History: Report Status: Verified Date Reported: FEB 03, 2021 Date Verified: FEB 03, 2021 Home Office Representative E-Sig:/ES/ALICIA BARBOUR Report: PROCEDURE: SPINE LUMBOSACRAL MIN [...] Primary Interpreting Staff: ALICIA BARBOUR, Staff Physician (Home Office Representative) /ALICIA YUSUF [facility] Pathology Reports: +/- 30 days of the encounter No Data Provided for This Section Encounter Notes: All associated encounter notes This section contains the clinical notes associated to the Encounter. Date/Time Encounter Note(s) Provider Source Jan 12, 2021 12:47 PM ADMINISTRATIVE NOTE: LOCAL TITLE: ADMINISTRATIVE NOTE STANDARD TITLE: ADMINISTRATIVE NOTE DATE OF NOTE: JAN 12, 2021@12:47 ENTRY DATE: JAN 12, 2021@12:47:19 AUTHOR: GARFIELD BAKERIGNER: URGENCY: STATUS: COMPLETED Clinical Contact/Call Center Coronavirus Disease 2019 (COVID-19) Screen, katelin. June 01, 2020 DIAGNOSIS AND TESTING STATUS: Has been diagnosed with COVID-19: () Yes* Date: (*No Further Screening Required) (x) No (Continue Screening) Comment(s): Is [place] waiting for COVID-19 test results: () Yes [...] a Positive symptom and/or exposure. Follow-up required. x() Negative Screen ( ) SCREENING COULD NOT BE DONE DUE TO V ETJESI NOT BEING PRESENT. ( ) DECLINED SCREENING /anisa/ [facility] Signed: 01/12/2021 12:47 GARFIELD BAKER [facility] Jan 12, 2021 12:47 PM ADMINISTRATIVE NOTE: LOCAL TITLE: SCHEDULING NOTE STANDARD TITLE: ADMINISTRATIVE NOTE DATE OF NOTE: JAN 12, 2021@12:47 ENTRY DATE: JAN 12, 2021@12:47:58 AUTHOR: GARFIELD BAKER EXP COSIGNER: URGENCY: STATUS: COMPLETED SCHEDULING NOTE Has ADDENDA [place] calling to schedule annual visit that he had to cancel in December. May be reached at . RTC [facility] TM 3 O/A 12/20/20 B12, CBC, A1C, LIP, MAG, PSA, R/L, TSH, UA PO 12/26/19 /anisa/ GARFIELD BAKER [facility] Signed: 01/12/2021 12:51 Receipt Acknowledged By: 01/12/2021 15:15 /anisa/ ARASH TOMAS 01/12/2021 ADDENDUM STATUS: COMPLETED LVM for to return call to clinic. Pull placed to follow. /anisa/ ARASH TOMAS Signed: 01/12/2021 15:16 01/13/2021 ADDENDUM STATUS: COMPLETED Please call back t o schedule RTC/ lab. /anisa/ FRANCI ZUNIGA [facility] Signed: 01/13/2021 09:42 Receipt Acknowledged By: 01/14/2021 09:50 /anisa/ ARASH TOMAS 01/14/2021 ADDENDUM STATUS: COMPLETED LVM for to return call to clinic. /charles TOMAS Signed: 01/14/2021 09:51 01/14/2021 ADDENDUM STATUS: COMPLETED [place] returned call. can be reached at /anisa/ LARON WILDER [facility] Signed: 01/14/2021 09:57 Receipt Acknowledged By: 01/14/2021 10:12 /anisa/ ARASH TOMAS 01/14/2021 ADDENDUM STATUS: COMPLETED [place] rescheduled PPR. /anisa/ ARASH TOMAS Signed: 01/14/2021 10:13 [facility] BAKER [facility]
--- OUTSIDE RECORDS SUMMARY | 2021-07-06 14:44 | XMS REPORT | Encounter Summary ---
Author Author Department [facility] FILIPE gallegos Organization Department [facility] Address Unknown Phone Unavailable Care Team Providers Care Certified Paralegal Name Role Phone NOLVIA NOEL PCP Unavailable [...] Cedillo's Name Patient's Relationship to Policy Cedillo [facility] PLAN B Nov 13, 2001 [id number] [phone] MAURA FARRELL SPOUSE [place] ([id number]) PRESCRIPTION [place] EMPLOYEE Mar 05, 2003 [id number] [phone] MAURA FARRELL SPOUSE [place] [employer] [facility] [facility] Mar 05, 2003 [id number] [phone] MAURA FARRELL SPOUSE MEDICARE (WNR) MEDICARE (M) PART A Sep 13, 2001 PART A [id number] [phone] [place] PATIENT MEDICARE (WNR) MEDICARE (M) PART B Sep 13, 2001 PART B [id number] [phone] FILIPE FARRELL PATIENT MEDICARE (WNR) MEDICARE (M) PART A Sep 13, 2001 PART A [id number] [phone] FILIPE FARRELL PATIENT MEDICARE (WNR) MEDICARE (M) PART B Sep 13, 2001 PART B [id number] [phone] FILIPE FARRELL PATIENT MEDICARE (WNR) MEDICARE (M) PART A Sep 13, 2001 PART A [id number] [phone] FILIPE FARRELL PATIENT MEDICARE (WNR) MEDICARE (M) PART B Sep 13, 2001 PART B [id number] [phone] FILIPE FARRELL PATIENT Selected Encounter This section includes the information on record at [place] for the Encounter. Date/Time Encounter Type Encounter Description Reason Provider Source Oct 14, 2020 02:30 PM Outpatient Encounter TELEPHONE TOD URIBE IHElizabeth Encounter Template Text not used by [place] Assessments - Encounter Diagnoses No Data Provided for This Section Plan of Treatment: Future Appointments (+ 6 months) and Future Tests (+/- 45 day s) The Plan of Treatment section includes future care activities for the patient fr om all [place] treatment facilities. This section includes future appointments and fu ture orders which are active, pending or scheduled. Future Appointments This section includes appointments that were scheduled t o occur 6 months from the date of the Encounter, up to a maximum of 20 appointme nts. The data comes from all [place] [facility]. Appointment Date/Time Appointment Type Appointment Facili ty Name Nov 10, 2020 02:30 PM AMBULATORY - PS[facility]CHIATRY [facility] Feb 02, 2021 10:00 AM AMBULATORY - NONE [facility] Feb 02, 2021 11:00 AM AMBULATORY - MEDICINE [facility] Surgical Procedures: All associated to [...] in Height Weight Body Mass Index Source Oct 14, 2020 10:11 AM 7 [facility] Immunizations: All administered on the encounter date No Data Provided for This Section Social History: Smoking Status (Most current) and Tobacco Use (All prior to enco unter date) This section includes the most current, and the historical, smoking and tobacco- related health factors from the [place] facility where the Encounter took place. Current Smoking Status This section includes the most current smoking, or tobacco -related health factor, from the [place] facility where the Encounter took place. Date/Time Current Smoking Status Comment Facility Apr 14, 2020 12:03 PM VA-TOBACCO QUIT 15 YRS OR MORE [facility] Tobacco Use History This section includes a history of the smoking, or tobacco -related health factors, that were collected on or before the date of the Encoun ter. The data comes from the [place] facility where the Encounter took place. Date/Time Smoking Status/Tobacco Use Comment Facil ity Apr 14, 2020 12:03 PM VA-TOBACCO FORMER USER [facility] [place] [facility] Apr 14, 2020 12:03 PM VA-TOBACCO QUIT 15 YRS OR MORE [facility] April 09, 2019 10:21 AM V16 TOBACCO USE SCREEN [place] [facility] April 09, 2019 10:21 AM VA-TOBACCO FORMER USER [place] [facility] April 09, 2019 10:21 AM [place]-TO[place]ACCO QUIT 15 YRS OR MORE [facility] Advance Directives: All historical and current No Data Provided for This Section Radiology Reports: +/- 30 days of the encounter No Data Provided for This Section Pathology Reports: +/- 30 days of the encounter No Data Provided for This Section Encounter Notes: All associated encounter notes This section contains the clinical notes associated to the Encounter. Date/Time Encounter Note(s) Provider Source Oct 14, 2020 10:06 AM MENTAL HEALTH NURSING NOTE: LOCAL TITLE: MENTAL HEALTH NURSE INTAKE STANDARD TITLE: MENTAL HEALTH NURSING NOTE DATE OF NOTE: OCT 14, 2020@10:06 ENTRY DATE: OCT 14, 2020@10:06:29 AUTHOR: YARY BARRERA COSIGNER: URGENCY: STATUS: COMPLETED SUBJECTIVE: Pre telephone appt call for MH Intake. Hoffman is alert, oriented and pleasant. Denies HI/SI. The Hoffman's phone number and address: [phone] [facility] The Hoffman's present location:home The Hoffman's emergency contact name and phone number: Maura () same # has verbally consented to telehealth; alternatives for obtaining care through in-person visit and right of refusal at any time have been explained. agreed to services today. Coronavirus Disease 2019 (COVID-19) Screen The patient reports no COVID-19 diagnosis. The patient reports not waiting for the results of a COVID-19 lab test. The patient reports no fever. The patient reports no new or worsening cough or shortness of breath. The patient reports no cold or flu-like symptoms. The patient reports no new onset of diarrhea, nausea or vomiting. The patient reports no new onset of headache, loss of taste or loss of smell. The patient reports no exposure to someone with COVID-19 within the past 2 weeks. Result: Screen is negative. Educated the regarding good handwashing, social distancing and avoid going out unless absolutely necessary to avoid possibilty of exposure to the Virus.Hoffman voiced understanding and is agreeable with the plan. BP: 144/67 (12/26/2019 16:22) Pain: 6 (12/26/2019 16:22) Height: 68 in [172.7 cm] (12/26/2019 15:38) Weight: 197 lb [89.5 kg] (12/26/2019 15:38) Pulse: 65 (12/26/2019 15:38) Respiration: 16 (12/26/2019 15:38) Temperature: 98.3 F [36.8 C] (12/26/2019 15:38) ALLERGIES:PENICILLIN, DOXEPIN, METFORMIN DEPRESSION SCREEN: (x)Positive ()Negative rates a 6 on a scale of 0-10 If positive, ()New/Untreated Depression SUICIDAL: (x)No ()Yes If Yes, does patient have a plan? ()Yes ()No PAIN: []No [x]Yes [x]Chronic or []Acute; Present Pain Level: 7 (12/26/2019 16:22) Comfort Level Scale (0-10):2 TOBACCO: (x)No ()Yes-Counseled for cessation. Has the patient traveled outside the [place] within the past 30 days? No If yes, where has the patient traveled? Influenza Immunization: The patient has received the seasonal influenza vaccine for the current season at another location. Date: August 27, 2020 [facility] Advance Directive Screen (Nurse): "Your Rights Regarding Advance Directives" was discussed and/or provided to patient/caregiver. ADVANCE DIRECTIVE SCREEN COPY of Advance Directive NOT on file in patient's medical record. Patient does not wish to create an Advance Directive. Information provided to patient. Organ Donor (Nurse): Patient states he/she is not currently registered with a Regional Organ Recovery Agency. Patient declines to be an organ donor. Diab Fundu Exam 2Y Scrn (Nurse): Patient declined referral for Funduscopic Eye Exam during this encounter. Comment: "not right now" Daily Aspirin (Nurse): Patient takes daily aspirin. Pain Evaluation (Nurse): PAIN EVALUATION: Clinic Location: Mental Health Patient reports having pain today. Patient reports Primary Care Provider is aware of pain. Pain Screening Tool utilized: [facility]/[place] Pain Scale This pain has been present for: Greater than 1 year Pain description: Comment: low back ache and pain daily Patient does NOT want pain addressed. Education Topics for patient/family/significant other: Reporting increased/unrelieved pain. Level of Understanding: Good /anisa/ YARY BARRERA RN PRIMARY CARE REGISTERED NURSE-SLAVA Signed: 10/14/2020 10:13 YARY BARRERA [facility]
--- OUTSIDE RECORDS SUMMARY | 2021-07-06 14:44 | XMS REPORT ---
Author Author Department [facility] FILIPE gallegos Organization Department [facility] Address Unknown Phone Unavailable Care Team Providers Care Manager Pharmaceutical Name Role Phone NOLVIA NOEL PCP Unavailable [...] Cedillo's Name Patient's Relationship to Policy Cedillo [facility] PLAN B Nov 13, 2001 [id number] [phone] MARELY FARRELL SPOUSE [place] ([id number]) PRESCRIPTION [place] EMPLOYEE Mar 05, 2003 [id number] [phone] MARELY FARRELL SPOUSE [place] [employer] [facility] Mar 05, 2003 [id number] [phone] MARELY FARRELL SPOUSE MEDICARE (WNR) MEDICARE (M) PART A Sep 13, 2001 PART A [id number] [phone] ALYCIAMOEHAYESY PATIENT MEDICARE (WNR) MEDICARE (M) PART B Sep 13, 2001 PART B [id number] [phone] FILIPE FARRELL PATIENT MEDICARE (WNR) MEDICARE (M) PART A Sep 13, 2001 PART A [id number] [phone] HAYES FARRELLY PATIENT MEDICARE (WNR) MEDICARE (M) PART B Sep 13, 2001 PART B [id number] [phone] FILIPE FARRELL PATIENT MEDICARE (WNR) MEDICARE (M) PART A Sep 13, 2001 PART A [id number] [phone] FILIPE FARRELL PATIENT MEDICARE (WNR) MEDICARE (M) PART B Sep 13, 2001 PART B [id number] 42A [phone] FILIPE FARRELL PATIENT Selected Encounter This section includes the information on record at [place] for the Encounter. Date/Time Encounter Type Encounter Description Reason Provider Source Dec 19, 2020 11:35 AM Outpatient Encounter ADMIN PAT ACTIVTIES (TOMMY ERIC) IHE Encounter Template Text not used by [place] Assessments - Encounter Diagnoses No Data Provided for This Section Plan of Treatment: Future Appointments (+ 6 months) and Future Tests (+/- 45 day s) The Plan of Treatment section includes future care activities for the patient fr om all [facility] facilities. This section includes future appointments and fu ture orders which are active, pending or scheduled. Future Appointments This section includes appointments that were scheduled t o occur 6 months from the date of the Encounter, up to a maximum of 20 appointme nts. The data comes from all [facility]. Appointment Date/Time Appointment Type Appointment Facili ty Name Feb 02, 2021 10:00 AM AMBULATORY - NONE [facility] Feb 02, 2021 11:00 AM AMBULATORY - MEDICINE [facility] May 10, 2021 02:30 PM AMBULATORY - PSYCHIATRY [facility] Active, Pending, and Scheduled Orders [...] the Encounter. The data comes from all [facility]. Test Date/Time Test Type Test Details Facility Name Feb 02, 2021 12:00 AM Laboratory - Chemistry Order OCCULT BL OOD FIT x1 SCREEN STOOL FECES SP ONE-TIME [facility] Surgical Procedures: All associated to [...] 09:30 AM V16 TOBACCO USE SCREEN [place] Jan 15, 2008 10:28 AM V16 TOBACCO CESSATION >7 YEA RS 30 years [place] Jan 15, 2008 10:28 AM V16 TOBACCO USE SCREEN [place] April 06, 2007 08:47 AM V16 TOBACCO CESSATION >7 YEARS [place]UAN [place] April 06, 2007 08:47 AM V16 TOBACCO USE SCREEN [place] Oct 27, 2006 09:44 AM V16 TOBACCO CESSATION > 12 MONTHS FA [place]ART[place]AM[place] Oct 27, 2006 09:44 AM V16 TOBACCO USE SCREEN [place] May 08, 2006 11:26 AM TOBACCO CESSATION: >10 YEARS RONYPAVELE [place] Apr 20, 2005 11:15 AM TOBACCO CESSATION: >10 YEARS R[place]YRISHABHTTE [place] Feb 02, 2004 02:41 PM TOBACCO CESSATION: >10 YEARS [place]TTE [place] Apr 26, 2001 08:56 AM TOBACCO CESSATION: >10 YEARS [place]YYETTE [place] Advance Directives: All historical and current No Data Provided for This Section Radiology Reports: +/- 30 days of the encounter No Data Provided for This Section Pathology Reports: +/- 30 days of the encounter No Data Provided for This Section Encounter Notes: All associated encounter notes This section contains the clinical notes associated to the Encounter. Date/Time Encounter Note(s) Provider Source Dec 19, 2020 11:35 AM ADMINISTRATIVE NOTE: LOCAL TITLE: ADMINISTRATIVE NOTE STANDARD TITLE: ADMINISTRATIVE NOTE DATE OF NOTE: DEC 19, 2020@11:35 ENTRY DATE: DEC 19, 2020@11:35:27 AUTHOR: LEX TOBIAS EXP COSIGNER: URGENCY: STATUS: COMPLETED Called [place] to move Vaccine appointment up, states that his just got out of hospital and can't make it due to him having to take care of her. Pull place to reschedule /anisa/ LEX TOBIAS Signed: 12/19/2020 11:36 LEX TOBIAS [facility]
--- OUTSIDE RECORDS SUMMARY | 2021-07-06 14:44 | XMS REPORT | Encounter Summary ---
Author Author Department [facility] FILIPE gallegos Organization Department 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 Mar 05, 2003 [id number] [phone] MAURA FARRELL SPOUSE MEDICARE (WNR) MEDICARE (M) PART A Sep 13, 2001 PART A [id number] [phone] BUDFILIPE PATIENT MEDICARE (WNR) MEDICARE (M) PART B Sep 13, 2001 PART B [id number] [phone] FILIPE FARRELL PATIENT MEDICARE (WNR) MEDICARE (M) PART A Sep 13, 2001 PART A [id number] [phone] FILIPE FARRELL PATIENT MEDICARE (WNR) MEDICARE (M) PART B Sep 13, 2001 PART B [id number] [phone] FILIPE FARRELL PATIENT MEDICARE (WNR) MEDICARE (M) PART A Sep 13, 2001 PART A [id number] 42A [phone] FILIPE FARRELL PATIENT MEDICARE (WNR) MEDICARE (M) PART B Sep 13, 2001 PART B [id number] 42A [phone] FILIPE FARRELL PATIENT Selected Encounter This section includes the information on record at [place] for the [place]counter. Date/Time Encounter Type Encounter Description Reason Provider Source Nov 10, 2020 02:30 PM Outpatient Encounter TELEPHONE ICD-1 0-CM F33.42 Major depressive disorder, recurrent, in full remission with Provider Comments: Depression ([facility] [id number]) TOD JEFFERSON Elizabeth Encounter Template Text not used by [place] Assessments - Encounter Diagnoses This section includes the primary and secondary diag noses documented for the Encounter. Date/Time Primary/Secondary Diagnosis Diagnosis Name Provider Source Nov 10, 2020 02:30 PM PRIMARY Major depressive d isorder, recurrent, in full remission REJI VELÁSQUEZ [facility] Plan of Treatment: Future Appointments (+ 6 months) and Future Tests (+/- 45 day s) The Plan of Treatment section includes future care activities for the patient fr om all [place] treatment facilities. This section includes future appointments and fu ture orders which are active, pending or scheduled. Future Appointments This section includes appointments that were scheduled t o occur 6 months from the date of the Encounter, up to a maximum of 20 appointme nts. The data comes from all [place] treatment facilities. Appointment Date/Time Appointment Type Appointment Facili ty Name Feb 02, 2021 10:00 AM AMBULATORY - NONE [facility] Feb 02, 2021 11:00 AM AMBULATORY - MEDICINE [facility] May 10, 2021 02:30 PM AMBULATORY - PSYCHIATRY [facility] IC Surgical Procedures: All associated to the encounter [...] in Height Weight Body Mass Index Source Nov 10, 2020 11:[address] [place] [address] Immunizations: All administered on the encounter date No Data Provided for This Section Social History: Smoking Status (Most current) and Tobacco Use (All prior to enco unter date) This section includes the most current, and the historical, smoking and tobacco- related health factors from the [place] facility where the Encounter took place. Current Smoking Status This section includes the most current smoking, or tobacco -related health factor, from the [place] facility where the Encounter took place. Date/Time Current Smoking Status Comment Facility Apr 14, 2020 12:03 PM VA-TOBACCO QUIT 15 YRS OR MORE [facility] Tobacco Use History This section includes a history of the smoking, or tobacco -related health factors, that were collected on or before the date of the Encoun ter. The data comes from the [place] facility where the Encounter took place. Date/Time Smoking Status/Tobacco Use Comment Facil ity Apr 14, 2020 12:03 PM VA-TOBACCO FORMER USER [facility] Apr 14, 2020 12:03 PM VA-TOBACCO QUIT 15 YRS OR MORE [facility] April 09, 2019 10:21 AM V16 TOBACCO USE SCREEN [facility] April 09, 2019 10:21 AM VA-TOBACCO FORMER USER [facility] April 09, 2019 10:21 AM [place]-TOBACCO QUIT 15 YRS OR MORE [facility] Advance Directives: All historical and current No Data Provided for This Section Radiology Reports: +/- 30 days of the encounter No Data Provided for This Section Pathology Reports: +/- 30 days of the encounter No Data Provided for This Section Encounter Notes: All associated encounter notes This section contains the clinical notes associated to the Encounter. Date/Time Encounter Note(s) Provider Source Nov 10, 2020 02:30 PM PSYCHIATRY TELEPHONE ENCOUNT ER NOTE: LOCAL TITLE: TELECARE-PSYCHIATRY STANDARD TITLE: PSYCHIATRY TELEPHONE ENCOUNTER NOTE DATE OF NOTE: NOV 10, 2020@14:30 ENTRY DATE: NOV 10, 2020@17:42 AUTHOR: TOD JEFFERSON EXP COSIGNER: URGENCY: STATUS: COMPLETED PATIENT NAME: FILIPE FARRELL SSN: [id number] FUTURE APPOINTMENTS: Dec@10:00 [facility] FASTING Dec@11:00 [facility] PC TM 3 PATIENT'S HOME PHONE: REASON FOR CALL: f/u PSYCHIATRIC PROGRESS NOTE Patient Identifiers: [x] Name [x] SS# [x] CC: PTSD INTERVAL HISTORY AND CURRENT ISSUES: 74 year old MALE is interviewed in f/u c are over telephone due to COVID precautions. 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 He was last interviewed in April. He endorses compliance with medications over the interim, tolerating sertraline well and feels it helps maintain stable mood and anxiety. He continues to isolate in the home with spouse, taking precautions to not get COVID 19. He is unable to garden at this time of year, but has adopted a new dog from the care home, gets his exercise taking it outside to use the bathroom and walk around the yard. Sleeping fairly well. Wakes up at times goes to bathroom, but earily falls back to sleep. Denies any active or frequent nightmares or PTSD sxs. Feels everything is going relatively well, does not think needs any changes in treatment plan or medications at this time. Denies SI, HI ,AVH or sxs of bon. Past, Family, and Social History: Originally from [place]. 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 He is > 40 yrs , has adult children. Lives in own kelley in [facility]. Active Outpatient Medications (excluding Supplies): Active Outpatient Medications Status 1) ATENOLOL 50MG TAB TAKE ONE TABLET BY MOUTH ONCE ACTIVE (S) DAILY FOR BLOOD PRESSURE / HEART 2) ATORVASTATIN 80MG TAB TAKE ONE-HALF TABLET BY MOUTH ACTIVE AT BEDTIME FOR CHOLESTEROL - DO NOT TAKE WITH GRAPEFRUIT JUICE (CONSULT APPROVED) 3) CHOLECALCIF 25MCG (D3-1,000UNIT) TA B TAKE TWO TABLETS ACTIVE BY MOUTH ONCE DAILY 4) CLOBETASOL PROPIONATE 0.05% OINT AP PLY SMALL AMOUNT ACTIVE TOPICALLY ONCE DAILY APPLY TO AFFECTED AREA UNTIL HEALED 5) FENOFIBRATE 48MG TAB TAKE ONE TABLE T BY MOUTH ONCE ACTIVE DAILY FOR HIGH TRIGLYCERIDES 6) GABAPENTIN 300MG CAP TAKE ONE CAPSU LE BY MOUTH AT ACTIVE (S) BEDTIME FOR 3 DAYS, THEN TAKE TWO CAPSULES AT BEDTIME FOR 3 DAYS, THEN TAKE THREE CAPSULES AT BEDTIME -(MAY CAUSE DROWSINESS) 7) INSULIN GLARGINE U-100 10ML/VIAL IN JECT 42 UNITS ACTIVE SUBCUTANEOUSLY AT BEDTIME FOR DIABETES (SHIP REFRIGERATED) 8) LISINOPRIL 5MG TAB TAKE ONE TABLET BY MOUTH EVERY ACTIVE MORNING FOR BLOOD PRESSURE TO PROTECT KIDNEYS 9) MAGNESIUM OXIDE 420MG TAB TAKE ONE TABLET BY MOUTH AT ACTIVE BEDTIME TAKE WITH FOOD 10) METHOCARBAMOL 500MG TAB TAKE ONE TA BLET BY MOUTH ACTIVE THREE TIMES DAILY NEEDED FOR MUSCLE SPASMS -(MAY CAUSE DROWSINESS) 11) SERTRALINE 100MG TAB TAKE ONE AND O NE-HALF TABLETS BY ACTIVE MOUTH AT BEDTIME FOR DEPRESSION AND NERVES. Active Non-VA Medications Status 1) Non-VA ASPIRIN 325MG EC TAB 325MG M OUTH ONCE DAILY ACTIVE 2) Non-VA GLUCOSAMINE CAP/TAB ACTIVE 3) Non-VA MULTIVITAMINS TAB MOUTH ONC E DAILY ACTIVE 14 Total Medications Allergies: PENICILLIN, DOXEPIN, METFORMIN REVIEW OF SYSTEMS: Chronic back pain MENTAL STATUS EXAM: Patient is an [...] TREATMENT PLAN: Patient with chronic anxiety/depressive sxs, relative mood stability at present. -Recommend continuing current med regimen to support ongoing stabilizing benefits. -Encouraged ongoing efforts in therapeutic activities FOLLOWUP: 6 months Supportive therapy and education given regarding medications and stressors. * PSYCHOTHERAPY TIME; FACE TO FACE: [ ] <16 min [x ] 16-37 min [ ] 38-52 min [ ] 53-89 min [ ] Other: /anisa/ TOD JEFFERSON PSYCHIATRIST Signed: 11/10/2020 17:50 TOD JEFFERSON [facility] Nov 10, 2020 02:30 PM MEDICATION MGT NOTE: LOCAL TITLE: MEDICATION RECONCILIATION (PROVIDER) STANDARD TITLE: MEDICATION MGT NOTE DATE OF NOTE: NOV 10, 2020@14:30 ENTRY DATE: NOV 10, 2020@17:52:02 AUTHOR: TOD JEFFERSON EXP COSIGNER: URGENCY: STATUS: COMPLETED Medication Reconciliation COMPLETED (Outpatient): NO medication additions, deletions, dosage changes OR duplications were identified. Copy of Medication Reconciliation note and Patient Medication Information Cover Sheet provided to and reviewed with patient/caregiver. ADVERSE REACTIONS/ALLERGY: PENICILLIN, DOXEPIN, METFORMIN Active Outpatient Medications (excluding Supplies): Active Outpatient Medications Status 1) ATENOLOL 50MG TAB TAKE ONE TABLET BY MOUTH ONCE ACTIVE (S) DAILY FOR BLOOD PRESSURE / HEART 2) ATORVASTATIN 80MG TAB TAKE ONE-HALF TABLET BY MOUTH ACTIVE AT BEDTIME FOR CHOLESTEROL - DO NOT TAKE WITH GRAPEFRUIT JUICE (CONSULT APPROVED) 3) CHOLECALCIF 25MCG (D3-1,000UNIT) TAB TAKE TWO TABLETS ACTIVE BY MOUTH ONCE DAILY 4) CLOBETASOL PROPIONATE 0.05% OINT APPLY SMALL AMOUNT ACTIVE TOPICALLY ONCE DAILY APPLY TO AFFECTED AREA UNTIL HEALED 5) FENOFIBRATE 48MG TAB TAKE ONE TABLET BY MOUTH ONCE ACTIVE DAILY FOR HIGH TRIGLYCERIDES 6) GABAPENTIN 300MG CAP TAKE ONE CAPSULE BY MOUTH AT ACTIVE (S) BEDTIME FOR 3 DAYS, THEN TAKE TWO CAPSULES AT BEDTIME FOR 3 DAYS, THEN TAKE THREE CAPSULES AT BEDTIME -(MAY CAUSE DROWSINESS) 7) INSULIN GLARGINE U-100 10ML/VIAL INJECT 42 UNITS ACTIVE SUBCUTANEOUSLY AT BEDTIME FOR DIABETES (SHIP REFRIGERATED) 8) LISINOPRIL 5MG TAB TAKE ONE TABLET BY MOUTH EVERY ACTIVE MORNING FOR BLOOD PRESSURE TO PROTECT KIDNEYS 9) MAGNESIUM OXIDE 420MG TAB TAKE ONE TABLET BY MOUTH AT ACTIVE BEDTIME TAKE WITH FOOD 10) METHOCARBAMOL 500MG TAB TAKE ONE TABLET BY MOUTH ACTIVE THREE TIMES DAILY NEEDED FOR MUSCLE SPASMS -(MAY CAUSE DROWSINESS) 11) SERTRALINE 100MG TAB TAKE ONE AND ONE-HALF TABLETS BY ACTIVE MOUTH AT BEDTIME FOR DEPRESSION AND NERVES. Active Non-VA Medications Status 1) Non-VA ASPIRIN 325MG EC TAB 325MG MOUTH ONCE DAILY ACTIVE 2) Non-VA GLUCOSAMINE CAP/TAB ACTIVE 3) Non-VA MULTIVITAMINS TAB MOUTH ONCE DAILY ACTIVE 14 Total Medications No Active Remote Medications for this patient /anisa/ TOD JEFFERSON PSYCHIATRIST Signed: 11/10/2020 17:52 TOD JEFFERSON [facility] Nov 10, 2020 02:30 PM SUICIDE PREVENTION RISK ASSE SSMENT SCREENING NOTE: LOCAL TITLE: SUICIDE RISK SCREENER-SECONDARY STANDARD TITLE: SUICIDE PREVENTION RISK ASSESSMENT SCREENING NOT DATE OF NOTE: NOV 10, 2020@14:30 ENTRY DATE: NOV 10, 2020@17:52:46 AUTHOR: TOD JEFFERSON EXP COSIGNER: URGENCY: STATUS: COMPLETED [place]-Suicide Severity Rating Scale (C-SSRS Screener) 1. Over [...] to responses to other questions. /anisa/ TOD JEFFERSON PSYCHIATRIST Signed: 11/10/2020 17:53 TOD JEFFERSON [facility] Nov 10, 2020 11:04 AM TELEPHONE ENCOUNTER NOTE: LOCAL TITLE: TELECARE STANDARD TITLE: TELEPHONE ENCOUNTER NOTE DATE OF NOTE: NOV 10, 2020@11:04 ENTRY DATE: NOV 10, 2020@11:04:36 AUTHOR: REJI VELÁSQUEZ COSIGNER: URGENCY: STATUS: COMPLETED PATIENT NAME: FILIPE FARRELL SSN: [id number] FUTURE APPOINTMENTS: Oct@14:30 [facility] PSY TELE PSYCH MD1-X Dec@10:00 [facility] LAB FASTING Dec@11:00 [facility] PC TM 3 PATIENT'S HOME PHONE: REASON FOR CALL Nursing assessments/ screening for telephone appt with Dr Jefferson at 1430 today. [place] denies depression, anxiety, SI and HI. Denies any concerns today. The [place]'s phone number and address: [address] [place] [address] The [place]'s present location: home The 's emergency contact name and phone number: Maura [place] has verbally consented to telehealth; alternatives for obtaining care through in-person visit and right of refusal at any time have been explained. [place] agreed to services today. Coronavirus Disease 2019 [...] past 2 weeks. Result: Screen is negative. Daily Aspirin (Nurse): Patient takes daily aspirin. Pain Evaluation (Nurse): PAIN EVALUATION: Clinic Location: Mental Health Patient reports having pain today. Patient reports Primary Care Provider is aware of pain. Pain Screening Tool utilized: [facility]/[place] Pain Scale This pain has been present for: Greater than 1 year Pain description: Comment: low back aching 04/22 Patient does NOT want pain addressed. Education Topics for patient/family/significant other: Instructed to contact Primary Care Provider for further evaluation. Level of Understanding: Good FOLLOW UP: (Patient has been instructed to go to [facility] Emergency Room or to seek care elsewhere. FINANCIAL DISCLAIMER was read to caller ( ) Yes (x) Not Applicable) FINANCIAL DISCLAIMER: "This is not an authorization for [place] Payment" and also "Have hospital contact the nearest [place] Facility for transfer upon stabilization". /anisa/ REJI VELÁSQUEZ RN PRIMARY CARE REGISTERED NURSE-SLAVA Signed: 11/10/2020 11:14 REJI VELÁSQUEZ [facility]
--- OUTSIDE RECORDS SUMMARY | 2021-07-06 14:45 | XMS REPORT | Encounter Summary ---
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 [facility] Mar 05, 2003 [phone] [phone] MARELY FARRELL SPOUSE MEDICARE (WNR) MEDICARE (M) PART A Sep 13, 2001 PART A [id number] 42A [phone] FILIPE FARRELL PATIENT MEDICARE (WNR) MEDICARE (M) PART B Sep 13, 2001 PART B [id number] [phone] HAYES FARRELLY PATIENT MEDICARE (WNR) MEDICARE (M) PART A Sep 13, 2001 PART A [id number] [phone] BUDHAYESY PATIENT MEDICARE (WNR) MEDICARE (M) PART B Sep 13, 2001 PART B [id number] [phone] FILIPE FARRELL PATIENT MEDICARE (WNR) MEDICARE (M) PART A Sep 13, 2001 PART A [id number] [phone] FILIPE FARRELL PATIENT MEDICARE (WNR) MEDICARE (M) PART B Sep 13, 2001 PART B [id number] 42A [phone] FILIPE FARRELL PATIENT Selected Encounter This section includes the information on record at [place] for the Encounter. Date/Time Encounter Type Encounter Description Reason Provider Source Oct 07, 2020 11:23 AM Outpatient Encounter TELEPHONE ICD-1 0-CM F33.42 Major depressive disorder, recurrent, in full remission with Provider Comments: Depression ([facility] [id number]) YARY BARRERA [facility] Encounter Template Text not used by [place] Assessments - Encounter Diagnoses This section includes the primary and secondary diag noses documented for the Encounter. Date/Time Primary/Secondary Diagnosis Diagnosis Name Provider Source Oct 07, 2020 11:23 AM PRIMARY Major depressive d isorder, recurrent, in full remission YARY BARRERA [facility] Plan of Treatment: Future Appointments (+ 6 months) and Future Tests (+/- 45 day s) The Plan of Treatment section includes future care activities for the patient fr om all [place] treatment facilities. This section includes future appointments and fu ture orders which are active, pending or scheduled. Future Appointments This section includes appointments that were scheduled t o occur 6 months from the date of the Encounter, up to a maximum of 20 appointme nts. The data comes from all [place] treatment facilities. Appointment Date/Time Appointment Type Appointment Facili ty Name Oct 14, 2020 02:30 PM AMBULATORY - PS[facility]ATRY [facility] Nov 10, 2020 02:30 PM AMBULATORY - PS[facility]IATRY [facility] Feb 02, 2021 10:00 AM AMBULATORY - NONE [facility] Feb 02, 2021 11:00 AM AMBULATORY - MEDICINE [facility] Surgical Procedures: All associated to the [...] and tobacco- related health factors from the [place] facility where the Encounter took place. Current Smoking Status This section includes the most current smoking, or tobacco -related health factor, from the [place] facility where the Encounter took place. Date/Time Current Smoking Status Comment Facility Apr 14, 2020 12:03 PM VA-TOBACCO QUIT 15 YRS OR MORE [facility] Tobacco Use History This section includes a history of the smoking, or tobacco -related health factors, that were collected on or before the date of the Encoun ter. The data comes from the [facility] where the Encounter took place. Date/Time Smoking Status/Tobacco Use Comment [facility] it Apr 14, 2020 12:03 PM [facility] Apr 14, 2020 12:03 PM VA-TOBACCO QUIT 15 YRS OR MORE [facility] April 09, 2019 10:21 AM V16 TOBACCO USE SCREEN [facility] April 09, 2019 10:21 AM VA-TOBACCO [facility] April 09, 2019 10:21 AM IN-TOBACCO QUIT 15 YRS OR MORE [facility] Advance Directives: All historical and current No Data Provided for This Section Radiology Reports: +/- 30 days of the encounter No Data Provided for This Section Pathology Reports: +/- 30 days of the encounter No Data Provided for This Section Encounter Notes: All associated encounter notes This section contains the clinical notes associated to the Encounter. Date/Time Encounter Note(s) Provider Source Oct 07, 2020 12:11 PM TELEPHONE ENCOUNTER NOTE: LOCAL TITLE: TELECARE STANDARD TITLE: TELEPHONE ENCOUNTER NOTE DATE OF NOTE: OCT 07, 2020@12:11 ENTRY DATE: OCT 07, 2020@12:11:48 AUTHOR: YARY BARRERA EXP COSIGNER: URGENCY: STATUS: COMPLETED LOCAL TITLE: TELECARE STANDARD TITLE: TELEPHONE ENCOUNTER NOTE DATE OF NOTE: OCT 07, 2020@11:15 ENTRY DATE: OCT 07, 2020@11:15:35 AUTHOR: YARY BARRERA EXP COSIGNER: URGENCY: STATUS: UNSIGNED PATIENT NAME: FILIPE FARRELL SSN: [id number] FUTURE APPOINTMENTS: Oct@15:00 [facility] PSY TELE PSYCH MD1-X Dec@10:00 J[facility] LAB FASTING Dec@11:00 JOP PC TM 3 PATIENT'S HOME PHONE: REASON FOR CALL:Call placed to for pre appt screening. FOLLOW UP: Considering the current COVID-19 pandemic, to help patients stay well, and follow the CDC's guidelines to stay home, we're reviewing all our upcoming appointments. Dr. Jefferson hasreviewed your appointment scheduled for Oct @1430 and would like to complete this visit with you virtually instead of in-person. We can complete this by a video call, over the phone, or we can reschedule this out further for a traditional [id number]. [place] requests telephone appt please. Coronavirus Disease 2019 (COVID-19) Screen The patient [...] weeks. Result: Screen is negative. Educated the [place] regarding good handwashing, social distancing and avoid going out unless absolutely necessary to avoid possibilty of exposure to the Virus.[place] voiced understanding and is agreeable with the plan. (Patient has been instructed to go to [facility] Emergency Room or to seek care elsewhere. FINANCIAL DISCLAIMER was read to caller ( ) Yes ( ) Not Applicable) FINANCIAL DISCLAIMER: "This is not an authorization for [place] Payment" and also "Have hospital contact the nearest [place] Facility for transfer upon stabilization". /anisa/ YARY BARRERA RN PRIMARY CARE REGISTERED NURSE-SLAVA Signed: 10/07/2020 12:13 YARY BARRERA [facility]
--- OUTSIDE RECORDS SUMMARY | 2021-07-06 14:47 | XMS REPORT | Encounter Summary ---
Author Author Department [facility] FILIPE gallegos Organization Department of [facility] Address Unknown Phone Unavailable Care Team Providers Care Refractory Manager Name Role Phone NOLVIA NOEL PCP [...] Cedillo's Name Patient's Relationship to Policy Cedillo [facility] B Nov 13, 2001 [id number] [phone] MARELY FARRELL SPOUSE [place] ([id number]) PRESCRIPTION [place] [employer] Mar 05, 2003 [id number] [phone] MARELY FARRELL SPOUSE [place] [employer] [facility] Mar 05, 2003 [id number] [phone] MARELY FARRELL SPOUSE MEDICARE (WNR) MEDICARE (M) PART A Sep 13, 2001 PART A [id number] [phone] FILIPE FARRELL PATIENT MEDICARE (WNR) MEDICARE (M) PART B Sep 13, 2001 PART B [id number] [phone] FILIPE FARRELL PATIENT MEDICARE (WNR) MEDICARE (M) PART A Sep 13, 2001 PART A [id number] [phone] FILIPE FARRLEL PATIENT MEDICARE (WNR) MEDICARE (M) PART B Sep 13, 2001 PART B [id number] 42A [phone] FILIPE FARRELL PATIENT MEDICARE (WNR) MEDICARE (M) PART A Sep 13, 2001 PART A [id number] [phone] FILIPE FARRELL PATIENT MEDICARE (WNR) MEDICARE (M) PART B Sep 13, 2001 PART B [id number] 42A [phone] FILIPE FARRELL PATIENT Selected Encounter This section includes the information on record at [facility] for the Encounter. Date/Time Encounter Type Encounter Description Reason Provider Source Aug 27, 2020 12:00 AM Outpatient Encounter EVENT (HISTORICAL) IHE Encounter Template Text not used by [place] Assessments - Encounter Diagnoses No Data Provided for This Section Plan of Treatment: Future Appointments (+ 6 months) and Future Tests (+/- 45 day s) The Plan of Treatment section includes future care activities for the patient fr om all [place] treatment facilities. This section includes future appointments and fu ture orders which are active, pending or scheduled. Future Appointments This section includes appointments that were scheduled t o occur 6 months from the date of the Encounter, up to a maximum of 20 appointme nts. The data comes from all [place] treatment facilities. Appointment Date/Time Appointment Type Appointment Facili ty Name Oct 07, 2020 11:23 AM AMBULATORY - PSYCHIATRY [facility] Oct 14, 2020 02:30 PM AMBULATORY - PSYCHIATRY [facility] Nov 10, 2020 02:30 PM AMBULATORY - PSYCHIATRY [facility] Feb 02, 2021 10:00 AM AMBULATORY - NONE [facility] Feb 02, 2021 11:00 AM AMBULATORY - MEDICINE [facility] Surgical Procedures: All associated to [...] Encounter. Immunization Series Date Issued Reaction Comments INFLUENZA, UNSPECIFIED FORMULATION Aug 27, 2020 Social History: Smoking Status (Most current) and Tobacco Use (All prior to enco unter date) This section includes the most current, and the historical, smoking and tobacco- related health factors from the [place] facility where the Encounter took place. Current Smoking Status This section includes the most current smoking, or tobacco -related health factor, from the [place] facility where the Encounter took place. Date/Time Current Smoking Status Comment Facility March 18, 2009 09:30 AM V16 TOBACCO USE SCREEN [facility] Tobacco Use History This section includes a history of the smoking, or tobacco -related health factors, that were collected on or before the date of the Encoun ter. The data comes from the [place] facility where the Encounter took place. Date/Time Smoking Status/Tobacco Use Comment [facility] it March 18, 2009 09:30 AM V16 TOBACCO USE SCREEN [facility] Jan 15, 2008 10:28 AM V16 TOBACCO CESSATION >7 YEA RS 30 years LEAHDMELVIN [place] Jan 15, 2008 10:28 AM V16 TOBACCO USE SCREEN [facility]ELVIN [place] April 06, 2007 08:47 AM V16 TOBACCO CESSATION >7 YEARS DENNIS VELA [place] April 06, 2007 08:47 AM V16 TOBACCO USE SCREEN [facility]HDMELVIN [place] Oct 27, 2006 09:44 AM V16 TOBACCO CESSATION > 12 MONTHS RONY MARTIRJAMIE [place] Oct 27, 2006 09:44 AM V16 TOBACCO USE SCREEN [facility] May 08, 2006 11:26 AM TOBACCO CESSATION: >10 YEARS [facility] Apr 20, 2005 11:15 AM TOBACCO CESSATION: >10 YEARS [facility] AYALA [place] Feb 02, 2004 02:41 PM TOBACCO CESSATION: [...]
--- NOTE | 2021-07-06 15:23 | Diagnostic Imaging Report ---
PROCEDURE: US right lower extremity venous. TECHNIQUE: Multiple real-time grayscale images were obtained over the right lower extremity in various projections. Additional spectral analysis and color Doppler duplex images were also obtained. INDICATION: Right lower extremity swelling and pain. COMPARISON: None. FINDINGS: Visualized deep and superficial venous system is patent. There is no DVT. There is a 5 cm Vail's cyst in the popliteal fossa. IMPRESSION: No DVT identified. Dictated by: Dictated on workstation # [id number]
[2021-07-06 15:24] VITALS: BP 151/72
== END 2021-07-06 15:23 | disposition home or self-care (01) ==
LOC: EDUNIT# 14:05 → ER 14:07
DX: M71.21 Synovial cyst of popliteal space [Baker], right knee (principal)

== ENCOUNTER 2023-02-06 16:36 | Observation (INO) | payer OTHER ==
[~2023-02-06] VITALS: Ht 172 cm; Wt 78.3 kg
[2023-02-06] MEDS ORDERED: NS IV 1000 ML 1,000 ML IV STA (17:01)
--- NOTE | 2023-02-06 17:07 | ED General ---
General Chief Complaint: General Problems/Pain Stated Complaint: UNABLE TO KEEP ANYTHING DOWN, HEADACHE, DIARRHEA Nursing Triage Note: PT PRESENTS TO ED VIA POV FROM URGENT CARE FOR COMPLAINTS OF WHITE, DIZZINESS-WORSE WITH POSITION CHANGES, N/V/D X 1 WEEK. REPORTS HE RECIEVED 2 BAGS OF FLUID THERE AND TESTED NEG FOR COVID. Source of Information: Patient Exam Limitations: No Limitations History of Present Illness Date Seen by Provider: Feb 06, 2023 Time Seen by Provider: 17:04 Initial Comments Patient is a 77-year-old male with a history of hypertension, high cholesterol, PTSD, diabetes who presents ED with headache, dizziness, weakness and vomiting. Reports symptoms over the past week. Reports frontal head pain above his eyes rated 8 out of 10. Pain is stayed the same. Denies worst pain of his life. No history of migraines. Denies any visual changes, unilateral weakness, facial droop. Reports when he stands up he feels weak dizzy and feels like his knees are going to give out. Denies the room spinning, ear pain, ear ringing or history of vertigo. Denies of any chest pain or abdominal pain at this time. He does report some intermittent generalized abdominal cramping throughout the vomiting. Reports watery stools. Denies of any recent antibiotic use. Patient has been vomiting intermittently for the past week. Does have Zofran which she has been taking with some improvement. Was seen at [facility] urgent care today was given 2 L of fluid without lab work. Noted lab work to be abnormal with acute kidney injury with a creatinine of 2.2 and a GFR 31. No known history of kidney disease, CAD, CHF, COPD. Denies of any leg swelling. No history of strokes. Denies fever, chills, body aches, cough, chest pain, shortness of breath, or urinary symptoms, back pain. Patient had a negative COVID influenza swab at [facility]. Denies taking anything for pain Allergies and Home Medications Allergies Coded Allergies: Penicillins (Verified Allergy, Unknown, 07/06/21) Patient Home Medication List Home Medication List Reviewed: Yes Review of Systems Review of Systems Constitutional: No chills, No diaphoresis, No fever, No malaise, No weakness EENTM: No ear pain, No blurred vision, No double vision Respiratory: No cough, No dyspnea on exertion Cardiovascular: No chest pain Gastrointestinal: No abdominal pain, No diarrhea; nausea, vomiting Genitourinary: No decreased output, No discharge Musculoskeletal: No back pain, No joint pain Skin: No change in color, No change in hair/nails All Other Systems Reviewed Negative Unless Noted: Yes Past Ntzfjza-Rkivqb-Fpuwhr Hx Patient Social History Tobacco Use?: No Substance use?: No Alcohol Use?: No Pt feels they are or have been: No Immunizations Up To Date First/Initial COVID19 Vaccinat: April COVID19 Vaccination Calvin: April COVID19 Vaccination Date: APRIL Past Medical History Surgery/Hospitalization HX: PMH: PTSD, DM2, HTN, HIGH CHOL, Physical Exam Vital Signs Vital Signs - First Documented 02/06/23 16:43 Temp 36.0 Pulse 64 Resp 18 B/P (MAP) 161/74 (103) Pulse Ox 98 Capillary Refill : Less Than 3 Seconds Height, Weight, BMI Height: '" Weight: lbs. oz. kg; 25.00 BMI Method: General Appearance: No Apparent Distress, WD/WN Eyes: Bilateral Eye Normal Inspection, Bilateral Eye PERRL, Bilateral Eye EOMI HEENT: PERRL/EOMI, TMs Normal, Normal ENT Inspection, Pharynx Normal Neck: Full Range of Motion, Normal Inspection, Non Tender, Supple Respiratory: Chest Non Tender, Lungs Clear, Normal Breath Sounds Cardiovascular: Regular Rate, Rhythm, No Edema, No Gallop, No JVD Gastrointestinal: Normal Bowel Sounds, No Organomegaly, No Pulsatile Mass, Non Tender Back: Normal Inspection, No CVA Tenderness Neurologic/Psychiatric: Alert, Oriented x3, No Motor/Sensory Deficits, Normal Mood/Affect, stave grader II-XII Norm as Tested Skin: Normal Color, Warm/Dry Progress/Results/Core Measures Suspected Sepsis SIRS Temperature: Pulse: 64 Respiratory Rate: 18 Laboratory Tests 02/06/23 17:10: White Blood Count 9.7 Blood Pressure 161 /74 Mean: 103 Laboratory Tests 02/06/23 17:10: Creatinine 2.40H, Platelet Count 212, Total Bilirubin 0.7 Results/Orders Lab Results Laboratory Tests Test 02/06/23 17:10 02/06/23 17:14 Range/Units White Blood Count 9.7 4.3-11.0 10^3/uL Red Blood Count 3.97 L 4.30-5.52 10^6/uL Hemoglobin 12.3 L 13.3-17.7 g/dL Hematocrit 37 L 40-54 % Mean Corpuscular Volume 94 80-99 fL Mean Corpuscular Hemoglobin 31 25-34 pg Mean Corpuscular Hemoglobin Concent 33 32-36 g/dL Red Cell Distribution Width 13.2 10.0-14.5 % Platelet Count 212 130-400 10^3/uL Mean Platelet Volume 8.9 L 9.0-12.2 fL Immature Granulocyte % (Auto) 0 % Neutrophils (%) (Auto) 57 42-75 % Lymphocytes (%) (Auto) 36 12-44 % Monocytes (%) (Auto) 6 0-12 % Eosinophils (%) (Auto) 0 0-10 % Basophils (%) (Auto) 1 0-10 % Neutrophils # (Auto) 5.5 1.8-7.8 10^3/uL Lymphocytes # (Auto) 3.5 1.0-4.0 10^3/uL Monocytes # (Auto) 0.6 0.0-1.0 10^3/uL Eosinophils # (Auto) 0.0 0.0-0.3 10^3/uL Basophils # (Auto) 0.1 0.0-0.1 10^3/uL Immature Granulocyte # (Auto) 0.0 0.0-0.1 10^3/uL Sodium Level 140 135-145 MMOL/L Potassium Level 4.3 3.6-5.0 MMOL/L Chloride Level 109 H 98-107 MMOL/L Carbon Dioxide Level 13 L 21-32 MMOL/L Anion Gap 18 H 5-14 MMOL/L Blood Urea Nitrogen 36 H 7-18 MG/DL Creatinine 2.40 H 0.60-1.30 MG/DL Estimat Glomerular Filtration Rate 27 BUN/Creatinine Ratio 15 Glucose Level 105 70-105 MG/DL Calcium Level 9.2 8.5-10.1 MG/DL Corrected Calcium 9.4 8.5-10.1 MG/DL Magnesium Level 1.9 1.6-2.4 MG/DL Total Bilirubin 0.7 0.1-1.0 MG/DL Aspartate Amino Transf (AST/SGOT) 82 H 5-34 U/L Alanine Aminotransferase (ALT/SGPT) 82 H 0-55 U/L Alkaline Phosphatase 84 40-136 U/L Total Protein 7.3 6.4-8.2 GM/DL Albumin 3.7 3.2-4.5 GM/DL Lipase 48 8-78 U/L Monoscreen NEGATIVE NEGATIVE Urine Color YELLOW Urine Clarity CLEAR Urine pH 6.0 5-9 Urine Specific [place] 1.020 1.016-1.022 Urine Protein NEGATIVE NEGATIVE Urine Glucose (UA) NEGATIVE NEGATIVE Urine Ketones 2+ H NEGATIVE Urine Nitrite NEGATIVE NEGATIVE Urine Bilirubin 1+ H NEGATIVE Urine Urobilinogen 0.2 < = 1.0 MG/DL Urine Leukocyte Esterase NEGATIVE NEGATIVE Urine RBC (Auto) NEGATIVE NEGATIVE Urine RBC NONE /HPF Urine WBC NONE /HPF Urine Crystals NONE /LPF Urine Bacteria TRACE /HPF Urine Casts PRESENT /LPF Urine Granular Casts RARE /LPF Urine Mucus NEGATIVE /LPF Urine Culture Indicated NO My Orders Orders - LES PH[facility] Ct Head Wo (02/06/23 17:01) Cbc With Automated Diff (02/06/23 17:01) Comprehensive Metabolic Panel (02/06/23 17:01) Monotest (02/06/23 17:01) Ua Culture If Indicated (02/06/23 17:01) Lipase (02/06/23 17:01) Magnesium (02/06/23 17:01) Ekg Tracing (02/06/23 17:01) Ns Iv 1000 Ml (Sodium Chloride 0.9%) (02/06/23 17:01) Orthostatic Vital Signs (Adult (02/06/23 17:38) Ct Abdomen/Pelvis Wo (02/06/23 18:00) Ed Admission (Communication) (02/06/23 18:02) Vital Signs/I&O 02/06/23 02/06/23 16:43 17:46 Temp 36.0 Pulse 64 67 66 65 Resp 18 B/P (MAP) 161/74 (103) 149/64 (92) 151/67 (95) 137/63 (87) Pulse Ox 98 Capillary Refill : Less Than 3 Seconds Blood Pressure Mean: 103 ECG Comment Sinus rhythm, right bundle branch block, 63 bpm, QRS duration 138 MS, QTc 484 MS Departure Communication (PCP) Reviewed previous ER visits, H&P's, outpatient testing H&P's. Patient presents ED with intermittent vomiting diarrhea weakness headache over the past week. Patient with unsteady gait. Frontal head pain with no history of migraines. Rates pain 8 out of 10 without any worsening pain. Patient without any focal neural deficits, vomiting. Patient has been having intermittent abdominal cramping none today. Denies chest pain or shortness of breath or cough. Patient is afebrile with stable vital signs. Patient denies the room spinning or vertigo type symptoms with standing. States he just feels weak. Patient was sent over from [facility] urgent care for further evaluation. CT of the head due to head pain, CBC, CMP, EKG, urinalysis. Differential diagnosis of viral syndrome, vertigo, stroke, dehydration, UTI, colitis. CBC showed normal white blood count with hemoglobin 12.9. Chemistry showed acute kidney injury with a GFR of 24, creatinine of 2.4. Slight elevated AST and ALT 81. [place] negative. States he had a negative influenza and COVID at [facility] urgent care. He does report flulike symptoms. No meningeal signs. Patient Was started on a liter of fluid. Did receive 2 L of fluid earlier this afternoon. No active vomiting here. EKG showed sinus rhythm with right bundle branch block with 63 bpm.. No cough or shortness of breath suggesting pneumonia. CT scan of the head was negative for acute abnormality. No specific abdominal tenderness on arrival. Urinalysis was negative for infection. Patient does not appear toxic. Patient does appear dehydrated. Slight ketones in urine. Slight elevated anion gap but normal blood sugar. History of diabetes, hypertension, high cholesterol. Concerning for dehydration. Did perform orthostatics but he was not severely orthostatic or a drop in blood pressure. Due to complaint of abdominal pain, CT abdomen pelvis was ordered because of no clear evidence of his vomiting or diarrhea. CT abdomen and pelvis unremarkable. Patient was discussed with Dr. Branch hospitalist who accepts patient for acute kidney injury, dehydration, IV fluids Impression Primary Impression: LEIGH (acute kidney injury) Additional Impression: Weakness Disposition: ADMITTED INPATIENT Condition: Stable Admissions Decision to Admit Reason: Admit from ER (General) Decision to Admit/Date: Feb 06, 2023 Time/Decision to Admit Time: 18:01 Departure-Patient Inst. Referrals: NO,LOCAL PHYSICIAN (PCP/Family) Primary Care Physician [facility] Feb 06, 2023 17:07
[2023-02-06 17:16] LABS: BASOPHILS # (AUTO) 0.1 10^3/uL (0.0-0.1); BASOPHILS % (AUTO) 1 % (0-10); EOSINOPHILS % (AUTO) 0 % (0-10); HEMATOCRIT 37 % (40-54); HEMOGLOBIN 12.3 g/dL (13.3-17.7); LYMPHOCYTES # (AUTO) 3.5 10^3/uL (1.0-4.0); LYMPHOCYTES % (AUTO) 36 % (12-44); MEAN CORPUSCULAR HEMOGLOBIN 31 pg (25-34); MEAN CORPUSCULAR HGB CONC 33 g/dL (32-36); MEAN CORPUSCULAR VOLUME 94 fL (80-99); MEAN PLATELET VOLUME 8.9 fL (9.0-12.2); MONOCYTES # (AUTO) 0.6 10^3/uL (0.0-1.0); MONOCYTES % (AUTO) 6 % (0-12); NEUTROPHILS # (AUTO) 5.5 10^3/uL (1.8-7.8); NEUTROPHILS % (AUTO) 57 % (42-75); PLATELET COUNT 212 10^3/uL (130-400); WHITE BLOOD COUNT 9.7 10^3/uL (4.3-11.0)
[2023-02-06 17:25] LABS: CLARITY,URINE CLEAR; COLOR,URINE YELLOW; GLUCOSE, URINE (UA) NEGATIVE (NEGATIVE); KETONES,URINE 2+ (NEGATIVE); LEUKOCYTE ESTERASE ,URINE NEGATIVE (NEGATIVE); NITRITE,URINE NEGATIVE (NEGATIVE); PROTEIN,URINE NEGATIVE (NEGATIVE)
[2023-02-06 17:29] LABS: ALBUMIN 3.7 GM/DL (3.2-4.5); POTASSIUM 4.3 MMOL/L (3.6-5.0)
[2023-02-06 17:30] LABS: CALCIUM 9.2 MG/DL (8.5-10.1)
[2023-02-06 17:31] LABS: TOTAL PROTEIN 7.3 GM/DL (6.4-8.2)
[2023-02-06 17:33] LABS: BACTERIA,URINE TRACE /HPF; BILIRUBIN,URINE 1+ (NEGATIVE); GRANULAR CASTS,URINE RARE /LPF
[2023-02-06 17:33] LABS: BILIRUBIN,TOTAL 0.7 MG/DL (0.1-1.0)
[2023-02-06 17:35] LABS: CREATININE SERUM 2.4 MG/DL (0.60-1.30)
[2023-02-06 17:38] LABS: MAGNESIUM 1.9 MG/DL (1.6-2.4)
--- NOTE | 2023-02-06 17:42 | Diagnostic Imaging Report ---
EXAMINATION: CT head without contrast. TECHNIQUE: Multiple contiguous axial images were obtained through the brain without the use of intravenous contrast. All CT scans use one or more of the following dose optimizing techniques: automated exposure control, MA and/or KvP adjustment based on patient size and exam type or iterative reconstruction. HISTORY: head pain, dizziness COMPARISON: None available. FINDINGS: Mild diffuse cerebral volume loss with proportional enlargement of the ventricles and sulci. No abnormal attenuation of brain parenchyma is present. No acute intracranial hemorrhage or abnormal extra-axial fluid collections are present. No hyperdense vessel. The calvarium is intact. The mastoid air cells are clear. The visualized paranasal sinuses are clear. The orbits are normal. IMPRESSION: 1. No acute intracranial abnormality. Dictated by: Dictated on workstation # [id number]
[2023-02-06 17:46] VITALS: BP_SYST 137; BP_SYST 149; BP_SYST 151; BP_DIAS 63; BP_DIAS 64; BP_DIAS 67
--- NOTE | 2023-02-06 18:24 | Diagnostic Imaging Report ---
EXAMINATION: CT abdomen and pelvis without contrast. TECHNIQUE: Multiple contiguous axial images were obtained through the abdomen and pelvis without the use of intravenous contrast. All CT scans use one or more of the following dose optimizing techniques: Automated exposure control, MA and/or KvP adjustment based on patient size and exam type or iterative reconstruction. HISTORY: Generalized abdominal pain. COMPARISON: None available. FINDINGS: Lung bases: The lung bases are clear. Solid organs: The liver is normal. The gallbladder is normal. There is no biliary ductal dilation. Pancreas is normal. Spleen is normal. Adrenal glands are normal. The kidneys are normal without visualized calculus or hydronephrosis. Bowel: The stomach and small bowel are normal without obstruction. The colon and appendix are normal. Peritoneum: There is no intraperitoneal free fluid or free air. No suspicious lymphadenopathy. Vasculature: Calcification of the aorta without aneurysm. Musculoskeletal: Degenerative changes of the spine without suspicious osseous lesion or compression fracture. Pelvis: The prostate gland is normal. The urinary bladder is normal. IMPRESSION: 1. No acute abnormality in the abdomen or pelvis. Dictated by: Dictated on workstation # [id number]
[2023-02-06] MEDS ORDERED: polyethylene glycoL POWDER 17 GM (MIRALAX) PACK PO PRN (19:00)
[2023-02-06] MEDS ORDERED: diphenhydrAMINE 25 MG TAB (BENADRYL) PO PRN (19:00)
[2023-02-06] MEDS ORDERED: ANTACID SUSP 30 ML UDC (MYLANTA) PO PRN (19:00)
[2023-02-06] MEDS ORDERED: MILK OF MAGNESIA 400 MG/5 ML 30 ML UDC PO PRN (19:00)
[2023-02-06] MEDS ORDERED: ONDANSETRON 4 MG (ZOFRAN) ORAL DISSOLVE TAB PO PRN (19:00)
[2023-02-06] MEDS ORDERED: MELATONIN 3 MG TABLET PO PRN (19:00)
[2023-02-06] MEDS ORDERED: diphenhydrAMINE 50 MG/ML INJ (BENADRYL) IVP PRN (19:00)
[2023-02-06] MEDS ORDERED: ONDANSETRON 4 MG/2 ML (SDV) Z0FRAN IV PRN (19:00)
[2023-02-06] MEDS ORDERED: BISACODYL 10 MG SUPP (DULCOLAX) PR PRN (19:00)
[2023-02-06] MEDS ORDERED: LACTULOSE SYRUP 10GM/15ML (ENULOSE) 30ML UDC PO PRN (19:00)
[2023-02-06] MEDS ORDERED: CALCIUM CARBONATE 500 MG (TUMS) TAB.CHEW PO PRN (19:00)
[2023-02-06 20:08] VITALS: BP 137/65
[2023-02-06] MEDS: ENOXAPARIN INJECTION 30 MG/0.3 ML SYR SC SCH (21:53)
[2023-02-06] MEDS: NS IV 1000 ML 1,000 ML IV SCH (21:53)
[2023-02-06] MEDS: DOCUSATE SODIUM 100 MG (COLACE) CAP PO SCH (21:57)
[2023-02-06] MEDS: SENNOSIDES 8.6 MG (SENOKOT) TAB PO SCH (22:02)
[2023-02-07 01:00] VITALS: BP 147/68
[2023-02-07] MEDS: ACETAMINOPHEN 325 MG TABLET PO PRN (02:33)
[2023-02-07 05:00] VITALS: BP 136/74
[2023-02-07] MEDS: NS IV 1000 ML 1,000 ML IV SCH ×3 (05:00→20:18)
[2023-02-07 05:24] LABS: BASOPHILS # (AUTO) 0.1 10^3/uL (0.0-0.1); BASOPHILS % (AUTO) 1 % (0-10); EOSINOPHILS # (AUTO) 0.1 10^3/uL (0.0-0.3); EOSINOPHILS % (AUTO) 1 % (0-10); HEMATOCRIT 33 % (40-54); HEMOGLOBIN 10.7 g/dL (13.3-17.7); LYMPHOCYTES % (AUTO) 44 % (12-44); MEAN CORPUSCULAR HEMOGLOBIN 31 pg (25-34); MEAN CORPUSCULAR HGB CONC 33 g/dL (32-36); MEAN CORPUSCULAR VOLUME 93 fL (80-99); MEAN PLATELET VOLUME 8.9 fL (9.0-12.2); MONOCYTES # (AUTO) 0.6 10^3/uL (0.0-1.0); MONOCYTES % (AUTO) 8 % (0-12); NEUTROPHILS # (AUTO) 3.2 10^3/uL (1.8-7.8); NEUTROPHILS % (AUTO) 47 % (42-75); PLATELET COUNT 183 10^3/uL (130-400); WHITE BLOOD COUNT 6.9 10^3/uL (4.3-11.0)
[2023-02-07 06:02] LABS: ALBUMIN 3.2 GM/DL (3.2-4.5); BILIRUBIN,TOTAL 0.6 MG/DL (0.1-1.0); CALCIUM 8.7 MG/DL (8.5-10.1); CREATININE SERUM 2.18 MG/DL (0.60-1.30); POTASSIUM 3.9 MMOL/L (3.6-5.0); TOTAL PROTEIN 6.1 GM/DL (6.4-8.2)
[2023-02-07 07:23] VITALS: BP 132/61
[2023-02-07] MEDS: SENNOSIDES 8.6 MG (SENOKOT) TAB PO SCH ×2 (07:34→21:14)
[2023-02-07] MEDS: DOCUSATE SODIUM 100 MG (COLACE) CAP PO SCH ×2 (07:34→21:14)
[2023-02-07] MEDS: SODIUM BICARBONATE 650 MG TABLET PO SCH ×3 (08:30→20:18)
[2023-02-07] MEDS ORDERED: PHARMACY TO DOSE SQ SCH (09:00)
--- NOTE | 2023-02-07 09:00 | Occupational Therapy Eval ---
OT Evaluation-General/PLF Medical Diagnosis Admission Date Feb 06, 2023 at 18:32 Medical Diagnosis: dehydration Onset Date: Feb 06, 2023 Therapy Diagnosis Therapy Diagnosis: weakness, dizziness Precautions Precautions/Isolations: Fall Prevention (education for use of call light, OT arrived w/ patient attempting to exit bed w/o assistance while connected to IV ), Standard Precautions Weight Bear Status Weight Bearing Restriction: Full Weight Bearing Referral Referral Reason: Evaluation/Treatment Medical History Pertinent Medical History: Arthritis Additional Medical History PTSD,DM2, HTN, Current History N/V/D for one week, increased weakness and dizziness Reviewed History: Yes Social History Home: Single Level Current Living Status: Alone Entry Into Home: Stairs Without Railing Steps Into Home: 1 (through garage) call groceries into [employer] and has delivered, neighbor drives to Dr chou ADL-Prior Level of Function SCALE: Activities may be completed with or without assistive devices. 8-Mgowwiepff-uvagdhx completes the activity by him/herself with no assistance from a helper. 5-Set-up or Clean-up Assistance-helper sets up or cleans up; patient completes activity. [place] assists only prior to or following the activity. 4-Supervision or Touching Assistance-helper provides verbal cues and/or touching/steadying and/or contact guard assistance as patient completes activity. Assistance may be provided throughout the activity or intermittently. 3-Partial/Moderate Assistance-helper does LESS THAN HALF the effort. [place] lifts, holds or supports trunk or limbs, but provides less than half the effort. 2-Substantial/Maximal Assistance-helper does MORE THAN HALF the effort. [place] lifts or holds trunk or limbs and provides more than half the effort. 3-Zynbhrgfg-eimtwk does ALL the effort. Patient does none of the effort to complete the activity. Or, the assistance of 2 or more helpers is required for the patient to complete the activity. If activity was not attempted, code reason: 7-Patient Refused. 9-Not Applicable-not attempted and the patient did not perform the activity before the current illness, exacerbation or injury. 10-Not Attempted due to Environmental Limitations-(lack of equipment, weather restraints, etc.). 88-Not Attempted due to Medical Conditions or Safety Concerns. Self Care: Independent Functional Cognition: Independent DME/Equipment: Bath Chair, Grab Bars, Shower DME/Equipment Comments has a FWW, and a cane but doesn't use them often patient reports gets dizzy in bathroom, has dizzy spells when taking care of dog. Drive Self: No Leisure Interests: flower gardening, pet onwner OT Current Status Subjective c/o nausea after breakfast, agreeable to OT Mental Status/Objective Patient Orientation: Person, Time (,,January), Situation Attachments: IV Current Glasses/Contacts: Yes Dentures/Partials: Yes (full set) Hand Dominance: Right Upper Extremity ROM BUE ROM WFLs Upper Extremity Coordination WFLs. right ring finger trigger finger, long history Upper Extremity Strength BUEs WFLs 4/5 grossly , reports weakness is in legs. Patient report he has chairs staged around house to sit and rest Pain behind eyes when bends over and sits back up ADL-Treatment Eating (QC): 6 Oral Hygiene (QC): 5 Shower/Bathe Self (QC): 7 (sponge cloth provided) Upper Body Dressing (QC): 4 (clothing is soiled, use of hospital garments.) Lower Body Dressing (QC): 4 (extra dispoable briefs provided) On/Off Footwear (QC): 5 Toileting Hygiene (QC): 4 Education OT Patient Education: Correct positioning, Energy conservation, Modified ADL techniques, Progress toward Goal/Update tx plan, Purpose of tx/functional activities, Reviewed precautions, Rehab process, Safety issues, Transfer techniques, Use of adapted equipment Teaching Recipient: Patient Teaching Methods: Demonstration, Discussion Response to Teaching: Reinforcement Needed OT Bookkeeping Manager Goals Bookkeeping Manager Goals Oral Hygiene (QC): 6 Toileting Hygiene (QC): 6 Shower/Bathe Self (QC): 6 Upper Body Dressing (QC): 6 Lower Body Dressing (QC): 6 On/Off Footwear (QC): 6 1=Demonstrate adherence to instructed precautions during ADL tasks. 2=Patient will verbalize/demonstrate understanding of assistive devices/modifications for ADL. 3=Patient will improve strength/tolerance for activity to enable patient to perform ADL's. OT Education/Plan Problem List/Assessment Assessment: Decreased Activ Tolerance, Decreased Safety Aware, Impaired Funct Balance, Impaired Self-Care Skills Discharge Recommendations Plan/Recommendations: Continue POC Treatment Plan/Plan of Care Treatment,Training & Education: Yes Patient would benefit from OT for education, treatment and training to promote independence in ADL's, mobility, safety and/or upper extremity function for ADL's. Plan of Care: ADL Retraining, Functional Mobility, Group Exercise/Act as Ind, UE Funct Exercise/Act Treatment Duration: Feb 11, 2023 Frequency: 3 times per week (3-5 times per week) Estimated Hrs Per Day: .25 hour per day Agreement: Yes Time Start Time: 08:50 Stop Time: 09:20 DATE: Feb 07, 2023 Total Time Billed (hr/min): 30 Billed Treatment Time EVM, ADL 1 30 min DANITA BENOIT OT Feb 07, 2023 09:00
--- NOTE | 2023-02-07 10:53 | Physical Therapy Evaluation ---
PT Evaluation-General Medical Diagnosis Admission Date Feb 06, 2023 at 18:32 Medical Diagnosis: LEIGH/dehydration Onset Date: Feb 06, 2023 Therapy Diagnosis Therapy Diagnosis: debility Precautions Precautions/Isolations: Fall Prevention (education for use of call light, OT arrived w/ patient attempting to exit bed w/o assistance while connected to IV ), Standard Precautions Referral Physician: Jose Carlos Reason for Referral: Evaluation/Treatment Medical History Pertinent Medical History: Arthritis, DM, HTN Current History ER from urgent care due to nausea/WHITE/dizziness x 1 week Reviewed History: Yes Social History Home: Single Level Current Living Status: Alone Entry Into Home: Stairs Without Railing PT Steps Into Home: 1 (through garage) Prior Prior Level of Function SCALE: Activities may be completed with or without assistive devices. 8-Zvidrfoszt-klspusp completes the activity by him/herself with no assistance from a helper. 5-Set-up or Clean-up Assistance-helper sets up or cleans up; patient completes activity. [place] assists only prior to or following the activity. 4-Supervision or Touching Assistance-helper provides verbal cues and/or touching/steadying and/or contact guard assistance as patient completes activity. Assistance may be provided throughout the activity or intermittently. 3-Partial/Moderate Assistance-helper does LESS THAN HALF the effort. [place] lifts, holds or supports trunk or limbs, but provides less than half the effort. 2-Substantial/Maximal Assistance-helper does MORE THAN HALF the effort. [place] lifts or holds trunk or limbs and provides more than half the effort. 2-Bcdqjpusc-irnnfq does ALL the effort. Patient does none of the effort to complete the activity. Or, the assistance of 2 or more helpers is required for the patient to complete the activity. If activity was not attempted, code reason: 7-Patient Refused. 9-Not Applicable-not attempted and the patient did not perform the activity before the current illness, exacerbation or injury. 10-Not Attempted due to Environmental Limitations-(lack of equipment, weather restraints, etc.). 88-Not Attempted due to Medical Conditions or Safety Concerns. Bed Mobility: 6 Transfers (B,C,W/C): 6 Gait: 6 Stairs: 6 Indoor Mobility (Ambulation): Independent Stairs: Independent PT Evaluation-Current Subjective Patient agrees to PT. Objective Patient Orientation: Normal For Age Attachments: IV ROM/Strength ROM Lower Extremities bilateral LE WFL Strength Lower Extremities 4-/5 grossly bilateral LE all planes Integumentary/Posture Bowel Incontinence: No Bladder Incontinence: No Posture cervical flexed posture Neuromuscular (Tone, Coordination, Reflexes) grossly intact Sensory Vision: Functional Hearing: Functional Hand Dominance: Right Transfers Lying to Sitting/Side of Bed(Q: 6 Sit to Stand (QC): 4 Chair/Mhv-kl-Tljgn Xfer(QC): 4 Gait Mode of Locomotion: Walk Anticipated Mode of Locomotion: Walk Walk 10 feet (QC): 4 Walk 50 ft with 2 Turns(QC): 4 Walk 150 ft (QC): 4 Distance: 300' Gait Assistive Device: FWW Comments/Gait Description safe and functional with no deviation with looking down toward floor/slight LOB to right looking up and forward Balance Sitting Static: Normal Sitting Dynamic: Normal Standing Static: Fair Standing Dynamic: Fair Assessment/Needs Patient will benefit from skilled PT to address functional strength and mobility to improve current LOF to safely return to home at maximum LOF. Patient instructed to call for assist for all mobility due to diminished safety awareness. Patient voices understanding. Rehab Potential: Fair PT Classified Advertising Supervisor Goals Nursing Home Goals PT Nursing Home Goals Time Frame: Feb 18, 2023 Roll Left & Right (QC): 6 Sit to Lying (QC): 6 Lying-Sitting on Side/Bed(QC): 6 Sit to Stand (QC): 6 Chair/Bms-sz-Fvilj Xfer(QC): 6 Toilet Transfer (QC): 6 Walk 10 feet (QC): 6 Walk 50ft with 2 Turns (QC): 6 Walk 150 ft (QC): 6 PT Plan Problem List Problem List: Functional Strength, Safety, Balance, Gait Treatment/Plan Treatment Plan: Continue Plan of Care Treatment Plan: Education, Functional Activity Karon, Functional Strength, Gait, Safety, Therapeutic Exercise Treatment Duration: Feb 18, 2023 Frequency: 6 times per week Estimated Hrs Per Day: .25 hour per day Patient and/or Family Agrees t: Yes Time Time In: 1020 Time Out: 1032 DATE: Feb 07, 2023 Total Billed Treatment Time: 12 Total Billed Treatment 1 visit EVModC 12 min OSCAR BENITEZ PT Feb 07, 2023 10:53
[2023-02-07 11:06] VITALS: BP 135/63
--- NOTE | 2023-02-07 14:36 | History & Physical-Hospitalist ---
History of Present Illness HPI/Chief Complaint Colten Blackmon is a 77 year old male with PMH HTN, T2DM, HLD, PTSD, who presented with weakness. He has also had nausea and vomiting. He had diarrhea, but that has resolved. He reports headache. He has also had generalized abdominal pain. He denies chest pain and palpitations. He denies shortness of breath and cough. He has not been able to eat or drink much lately. On my exam, his vomiting has resolved. He was able to eat breakfast without any nausea or pain. He got up with therapy and felt nauseous then. He still has a headache. He follows with a doctor at the [facility]. Source: patient Exam Limitations: no limitations Date Seen 02/07/23 Time Seen by a Provider: 10:05 Attending Physician No,Local Physician PCP Admitting Physician: Palma Cornell MD Attending Physician: Palma Cornell MD Referring Physician Date of Admission Feb 06, 2023 at 18:32 Home Medications & Allergies Home Medications Reviewed patient Home Medication Reconciliation performed by pharmacy medication reconciliations network support technician and/or nursing. Patients Allergies have been reviewed. Allergies Allergies Coded Allergies Penicillins (Verified Allergy, Unknown, 07/06/21) Past Pmluahr-Xfzjol-Hqlwpj Hx Patient Social History Tobacco Use?: No Use of E-Cig and/or Vaping dev: No Substance use?: No Alcohol Use?: No Pt feels they are or have been: No Immunizations Up To Date Date of Influenza Vaccine: Nov 17, 2022 First/Initial COVID19 Vaccinat: MARLENA Second COVID19 Vaccination Calvin: APRIL Tetanus Booster (TDap): Unknown Current Status Advance Directives: No Communicates: Verbally Primary Language: Bengali Preferred Spoken Language: Bengali Is interpretation needed?: No Past Medical History High Cholesterol, Hypertension Diabetes, Insulin dep PTSD Family Medical History No Pertinent Family Hx Review of Systems Constitutional: weakness Respiratory: no symptoms reported Cardiovascular: no symptoms reported Gastrointestinal: abdominal pain, diarrhea, nausea, vomiting Physical Exam Physical Exam Vital Signs Vital Signs - First Documented 02/06/23 02/06/23 16:43 18:37 Temp 36.0 Pulse 64 Resp 18 B/P (MAP) 161/74 (103) Pulse Ox 98 O2 Delivery Room Air Capillary Refill : Less Than 3 Seconds Height, Weight, BMI Height: '" Weight: lbs. oz. kg; 26.46 BMI Method: General Appearance: No Apparent Distress, WD/WN HEENT: PERRL/EOMI, Pharynx Normal Neck: Normal Inspection, Supple Respiratory: Lungs Clear, Normal Breath Sounds, No Respiratory Distress Cardiovascular: Regular Rate, Rhythm, No Edema, No Murmur Gastrointestinal: Normal Bowel Sounds, Non Tender, Soft Extremity: Normal Inspection, Non Tender, No Pedal Edema Neurologic/Psychiatric: Alert, Normal Mood/Affect Skin: Normal Color, Warm/Dry Results Results/Procedures Labs Laboratory Tests 02/06/23 17:10 02/07/23 05:15 Patient resulted labs reviewed. Imaging: Reviewed Imaging Report Assessment/Plan Admission Diagnosis Acute kidney injury Admission Status: Observation Assessment and Plan Abdominal pain Elevated LFTs CT abdomen without acute abnormalities AST/ALT mildly elevated Check hepatitis panel Obtain RUQ ultrasound LEIGH vs CKD Anemia Metabolic acidosis Likely CKD 3b IV fluids Sodium bicarb HTN HLD PTSD Await med rec, continue meds as able T2DM with hypoglycemia Hold long-acting insulin Sliding scale insulin DVT prophylaxis: Lovenox Diagnosis/Problems Diagnosis/Problems (1) Stage 3b chronic kidney disease (CKD) Status: Acute (2) Anemia Status: Acute (3) Metabolic acidosis Status: Acute (4) Abdominal pain Status: Acute (5) Elevated LFTs Status: Acute (6) HTN (hypertension) Status: Chronic (7) T2DM (type 2 diabetes mellitus) Status: Acute Qualifiers: Diabetes mellitus group home insulin use: with termite inspector use Diabetes mellitus complication status: with hypoglycemia Diabetes mellitus complication detail: without coma Qualified Codes: E11.649 - Type 2 diabetes mellitus with hypoglycemia without coma; Z79.4 - half-way (current) use of insulin (8) HLD (hyperlipidemia) Status: Chronic (9) PTSD (post-traumatic stress disorder) Status: Chronic (10) of [place] Status: Chronic PALMA CORNELL MD Feb 07, 2023 14:36
--- NOTE | 2023-02-07 15:07 | Diagnostic Imaging Report ---
PROCEDURE: US Hepatic (Liver). TECHNIQUE: Multiple real-time grayscale images were obtained over the right upper quadrant in various projections. INDICATION: Elevated liver enzymes. COMPARISON: CT from 02/06/2023. FINDINGS: Imaged portions of the pancreas appear normal, although the tail is obscured by bowel gas. Imaged portions of the IVC and aorta appear normal. The liver demonstrates no focal lesions. Echogenicity appears normal. The main portal vein is hepatopetal. The gallbladder wall is borderline thickened, may be due to contraction as the patient is reportedly not NPO. No stones are seen. Sonographic Hong's sign is negative. The common bile duct is not seen. The right kidney measures 9.2 cm in length. There is no free fluid. There is a renal cyst measuring 1.8 cm. IMPRESSION: 1. Borderline gallbladder wall thickening, likely due to contraction. No stones are seen and sonographic Hong's sign is negative. 2. No acute abnormalities seen in the liver. Dictated by: Dictated on workstation # [id number]
[2023-02-07 15:30] VITALS: BP 137/63
[2023-02-07] MEDS ORDERED: CHOL10004 PO (15:52)
[2023-02-07] MEDS ORDERED: ONDA8TAB13 PO (15:52)
[2023-02-07] MEDS ORDERED: INSU100V6 SQ (15:52)
[2023-02-07] MEDS ORDERED: SERT-414 PO (15:52)
[2023-02-07] MEDS ORDERED: MAGN400T39 PO (15:52)
[2023-02-07] MEDS ORDERED: AMLO-250 PO (15:52)
[2023-02-07] MEDS ORDERED: GABA300C PO (15:52)
[2023-02-07] MEDS ORDERED: ROSU40TA23 PO (15:52)
[2023-02-07] MEDS ORDERED: LISI5TAB20 PO (15:52)
[2023-02-07] MEDS: ENOXAPARIN INJECTION 30 MG/0.3 ML SYR SC SCH (18:10)
[2023-02-07 19:27] VITALS: BP 134/61
[2023-02-07 21:16] LABS: HEPATITIS C ANTIBODY C Non-Reactive (Non-Reactive)
[2023-02-08 00:37] VITALS: BP 152/67
[2023-02-08 03:55] VITALS: BP 161/72
[2023-02-08 06:10] LABS: BASOPHILS # (AUTO) 0.1 10^3/uL (0.0-0.1); BASOPHILS % (AUTO) 1 % (0-10); EOSINOPHILS # (AUTO) 0.1 10^3/uL (0.0-0.3); EOSINOPHILS % (AUTO) 2 % (0-10); HEMATOCRIT 32 % (40-54); HEMOGLOBIN 10.5 g/dL (13.3-17.7); LYMPHOCYTES # (AUTO) 2.7 10^3/uL (1.0-4.0); LYMPHOCYTES % (AUTO) 43 % (12-44); MEAN CORPUSCULAR HEMOGLOBIN 31 pg (25-34); MEAN CORPUSCULAR HGB CONC 33 g/dL (32-36); MEAN CORPUSCULAR VOLUME 92 fL (80-99); MONOCYTES # (AUTO) 0.4 10^3/uL (0.0-1.0); MONOCYTES % (AUTO) 6 % (0-12); NEUTROPHILS % (AUTO) 47 % (42-75); PLATELET COUNT 179 10^3/uL (130-400); WHITE BLOOD COUNT 6.3 10^3/uL (4.3-11.0)
[2023-02-08 06:21] LABS: ALBUMIN 3.3 GM/DL (3.2-4.5); POTASSIUM 3.5 MMOL/L (3.6-5.0)
[2023-02-08 06:22] LABS: CALCIUM 8.7 MG/DL (8.5-10.1)
[2023-02-08 06:24] LABS: TOTAL PROTEIN 6.3 GM/DL (6.4-8.2)
[2023-02-08 06:25] LABS: BILIRUBIN,TOTAL 0.6 MG/DL (0.1-1.0)
[2023-02-08 06:27] LABS: CREATININE SERUM 1.81 MG/DL (0.60-1.30)
[2023-02-08 07:29] VITALS: BP 173/77
[2023-02-08] MEDS ORDERED: LOPERAMIDE 2 MG (IMODIUM) TABLET PO PRN (07:45)
[2023-02-08] MEDS: DOCUSATE SODIUM 100 MG (COLACE) CAP PO SCH (08:04)
[2023-02-08] MEDS: SENNOSIDES 8.6 MG (SENOKOT) TAB PO SCH (08:04)
[2023-02-08] MEDS: SODIUM BICARBONATE 650 MG TABLET PO SCH ×2 (08:09→12:27)
[2023-02-08] MEDS: ACETAMINOPHEN 325 MG TABLET PO PRN (08:10)
[2023-02-08] MEDS ORDERED: KCL 20 MEQ TAB (K-DUR) PO NR (09:00)
[2023-02-08] MEDS ORDERED: amLODIPine 10 MG (NORVASC) TAB PO SCH (09:00)
[2023-02-08] MEDS ORDERED: NF-SODBICA PO (09:43)
[2023-02-08] MEDS ORDERED: AMLO-251 PO (09:43)
[2023-02-08] MEDS ORDERED: LOPE2CAP PO (09:43)
[2023-02-08] MEDS: NS IV 1000 ML 1,000 ML IV SCH (10:15)
--- NOTE | 2023-02-08 10:16 | Occupational Ther Daily Note ---
OT Current Status-Daily Note Subjective Agreeable to OT, patient reports discontinued IV and some medications. Ready to go home when gets the OK from the DOC Mental Status/Objective Patient Orientation: Person Attachments: IV ADL-Treatment Therapy Code Descriptions/Definitions Functional [place] Measure: 0=Not Assessed/NA 4=Minimal Assistance 1=Total Assistance 5=Supervision or Setup 2=Maximal Assistance 6=Modified [place] 3=Moderate Assistance 7=Complete IndependenceSCALE: Activities may be completed with or without assistive devices. 0-Ecuhvvymmf-cdszzuz completes the activity by him/herself with no assistance from a helper. 5-Set-up or Clean-up Assistance-helper sets up or cleans up; patient completes activity. [place] assists only prior to or following the activity. 4-Supervision or Touching Assistance-helper provides verbal cues and/or touching/steadying and/or contact guard assistance as patient completes activity. Assistance may be provided throughout the activity or intermittently. 3-Partial/Moderate Assistance-helper does LESS THAN HALF the effort. [place] lifts, holds or supports trunk or limbs, but provides less than half the effort. 2-Substantial/Maximal Assistance-helper does MORE THAN HALF the effort. [place] lifts or holds trunk or limbs and provides more than half the effort. 9-Ojtdgojff-nkecfn does ALL the effort. Patient does none of the effort to complete the activity. Or, the assistance of 2 or more helpers is required for the patient to complete the activity. If activity was not attempted, code reason: 7-Patient Refused. 9-Not Applicable-not attempted and the patient did not perform the activity before the current illness, exacerbation or injury. 10-Not Attempted due to Environmental Limitations-(lack of equipment, weather restraints, etc.). 88-Not Attempted due to Medical Conditions or Safety Concerns. Eating (QC): 6 Oral Hygiene (QC): 5 Shower/Bathe Self (QC): 7 (refused particiaption w/ OT, set up of hygiene items and linens in bathroom) Upper Body Dressing (QC): 5 Lower Body Dressing (QC): 4 (c/o intermittent dizziness w/ abrupt movements, LB dressing safety education provided) On/Off Footwear: 5 Toileting Hygiene (QC): 5 Toilet Transfer (QC): 5 Education OT Patient Education: Energy conservation, Modified ADL techniques, Progress toward Goal/Update tx plan, Purpose of tx/functional activities, Safety issues, Transfer techniques Teaching Recipient: Patient Teaching Methods: Demonstration, Discussion Response to Teaching: Return Demonstration OT Lockstitch Tunnel Elastic Operator Goals Lockstitch Tunnel Elastic Operator Goals Oral Hygiene (QC): 6 Toileting Hygiene (QC): 6 Shower/Bathe Self (QC): 6 Upper Body Dressing (QC): 6 Lower Body Dressing (QC): 6 On/Off Footwear (QC): 6 1=Demonstrate adherence to instructed precautions during ADL tasks. 2=Patient will verbalize/demonstrate understanding of assistive devices/modifications for ADL. 3=Patient will improve strength/tolerance for activity to enable patient to perform ADL's. OT Education/Plan Discharge Recommendations Plan/Recommendations: Continue POC Treatment Plan/Plan of Care Patient would benefit from OT for education, treatment and training to promote independence in ADL's, mobility, safety and/or upper extremity function for ADL's. Plan of Care: ADL Retraining, Functional Mobility, Group Exercise/Act as Ind, UE Funct Exercise/Act Treatment Duration: Feb 11, 2023 Frequency: 3 times per week (3-5 times per week) Estimated Hrs Per Day: .25 hour per day Agreement: Yes Rehab Potential: Fair Time Start Time: 09:50 Stop Time: 10:15 DATE: Feb 08, 2023 Total Time Billed (hr/min): 25 Billed Treatment Time ADL 1, FA 1 25 min DANITA BENOIT OT Feb 08, 2023 10:16
--- NOTE | 2023-02-08 10:46 | Discharge Summary ---
Discharge Summary Reconcile Patient Problems Problems Reviewed?: Yes Instructions for Patient Via [facility], Assessment/Instructions See instructions Physician to follow Patient: [place] Discharge Diet for Home: Low Sodium Diet Hospital Course Date of Admission: Feb 06, 2023 at 18:32 Admission Diagnosis : LEIGH on CKD 3b Family Physician/Provider: JesseniaLocal Physician Date of Discharge: 02/08/23 Discharge Diagnosis: LEIGH on CKD 3b Hospital Course: Colten Blackmon is a 77 year old male with PMH HTN, T2DM on insulin, HLD, PTSD, who presented with weakness and was admitted with LEIGH on CKD 3b. He was treated with IV fluids and improved. He had diarrhea and was started on Imodium. He had nausea which improved. His blood sugar remained within normal limits without any insulin. His Lantus 40 units daily was discontinued. His Lisinopril was stopped due to his advancing kidney disease. His Amlodipine was increased. He was started on sodium bicarbonate due to metabolic acidosis related to chronic kidney disease. He was discharged home with home health in stable condition. He should follow up with his PCP in about a week. He should establish with a neph rologist. Labs and Pending Lab Test: Laboratory Tests 02/08/23 05:37: White Blood Count 6.3, Red Blood Count 3.44L, Hemoglobin 10.5L, Hematocrit 32L, Mean Corpuscular Volume 92, Mean Corpuscular Hemoglobin 31, Mean Corpuscular Hemoglobin Concent 33, Red Cell Distribution Width 13.1, Platelet Count 179, Mean Platelet Volume 9.0, Immature Granulocyte % (Auto) 0, Neutrophils (%) (Auto) 47, Lymphocytes (%) (Auto) 43, Monocytes (%) (Auto) 6, Eosinophils (%) (Auto) 2, Basophils (%) (Auto) 1, Neutrophils # (Auto) 3.0, Lymphocytes # (Auto) 2.7, Monocytes # (Auto) 0.4, Eosinophils # (Auto) 0.1, Basophils # (Auto) 0.1, Immature Granulocyte # (Auto) 0.0, Sodium Level 138, Potassium Level 3.5L, Chloride Level 110H, Carbon Dioxide Level 18L, Anion Gap 10, Blood Urea Nitrogen 22H, Creatinine 1.81H, Estimat Glomerular Filtration Rate 38, BUN/Creatinine Ratio 12, Glucose Level 83, Calcium Level 8.7, Corrected Calcium 9.3, Total Bilirubin 0.6, Aspartate Amino Transf (AST/SGOT) 64H, Alanine Aminotransferase (ALT/SGPT) 68H, Alkaline Phosphatase 78, Total Protein 6.3L, Albumin 3.3 02/08/23 05:57: Total Creatine Kinase 88 Home Meds Active Loperamide (Loperamide HCl) 2 Mg Capsule 2 Mg PO NEEDED PRN 30 Days Sodium Bicarbonate 650 Mg Tablet 650 Mg PO TID 30 Days Amlodipine Besylate 10 Mg Tablet 10 Mg PO DAILY 30 Days Reported Magnesium (Magnesium Oxide) 400 Mg Magnesium Tablet 800 Mg PO HS TAKES 2 (400MG) TABS Vitamin D3 (Cholecalciferol (Vitamin D3)) 25 Mcg (1000 Unit) Tablet 50 Mcg PO HS TAKES 2 (25MCG) TABS Sertraline HCl 100 Mg Tablet 200 Mg PO HS TAKES 2 (100MG) TABS Neurontin (Gabapentin) 300 Mg Capsule 300 Mg PO HS Rosuvastatin Calcium 40 Mg Tablet 40 Mg PO HS Lisinopril 5 Mg Tablet 5 Mg PO HS Lantus (Insulin Glargine,Hum.rec.anlog) 100 Unit/Ml Vial 40 Unit SQ HS Ondansetron Odt (Ondansetron) 8 Mg Tab.rapdis 8 Mg PO Q8H PRN Patient Allergies: Coded Allergies: Penicillins (Verified Allergy, Unknown, 07/06/21) Home Health Need/Face to Face Date of Face to Face: Feb 08, 2023 Clinical Findings: Generalized weakness and fatigue, Instability, Muscle weakness I have seen Pt [id number]: Yes Discharged To: Home Diagnosis/Conditions: HTN HLD T2DM PTSD CKD 3b Debility Problems/Diagnosis/Condition: (1) HTN (hypertension) (2) HLD (hyperlipidemia) (3) T2DM (type 2 diabetes mellitus) (4) PTSD (post-traumatic stress disorder) (5) Stage 3b chronic kidney disease (CKD) (6) Weakness Patient is Homebound due to: Seth fall risk due to instabilty, Muscle weakness Homebound Status Due to the above stated illness, injury or surgical procedure (medical condition or diagnosis) and associated clinical findings, the patient is homebound because of his/her inability to leave home except with aid of a supportive device and/or person AND leaving the home requires a considerable and taxing effort or is medically contraindicated. Pt req the following assistanc: Aid of another person Home Health Nursing Orders Home Health Services Order: Nursing Services, Foundry Superintendant-Evaluate & Treat, Physical Therapy-Evaluate & Treat Home Health Infusion Therapy Line Start Date: Feb 06, 2023 Therapy Orders Therapy Orders: OT (must have SN or PT order), Physical Therapy Therapy Specific Orders: Eval assistive deivces, Teach enviro modifications/safety, Gait training, Increase strength/endurance Certify Stmt I certify that this patient is under my care and that I, a nurse practitioner or a physician; a assistant track coach working with me, had a face to face encounter that - meets the physician face to face encounter requirements with this patient as dated. Discharge Physical Exam General: Alert, No Acute Distress Lungs: Clear to Auscultation, Normal Air Movement Heart: Regular Rate, No Murmurs Abdomen: Normal Bowel Sounds, Soft, No Tenderness Extremities: No Edema, No Tenderness/Swelling Skin: No Rashes, No Significant Lesion Neuro: Normal Speech, Normal Tone Psych/Mental Status: Mental Status NL, Mood NL PALMA CORNELL MD Feb 08, 2023 10:42
--- NOTE | 2023-02-08 11:13 | Physical Therapy Daily Note ---
PT Daily Note-Current Subjective Patient lying supine in bed upon PT arrival, agreeable to treatment. Rates pain currently at 7/10, headache. Pain Section J - Health Conditions 1. Rarely or not at all 2. Occasionally 3. Frequently 4. Almost constantly 8. Unable to answer Pain Effect on Sleep: 2 Pain Interference with Therapy: 2 Pain Interference w/Day-to-Day: 2 Mental Status Patient Orientation: Person, Place, Time, Situation Transfers SCALE: Activities may be completed with or without assistive devices. 4-Riutxqflux-nbmznab completes the activity by him/herself with no assistance from a helper. 5-Set-up or Clean-up Assistance-helper sets up or cleans up; patient completes activity. [place] assists only prior to or following the activity. 4-Supervision or Touching Assistance-helper provides verbal cues and/or touching /steadying and/or contact guard assistance as patient completes activity. Assistance may be provided throughout the activity or intermittently. 3-Partial/Moderate Assistance-helper does LESS THAN HALF the effort. [place] lifts, holds or supports trunk or limbs, but provides less than half the effort. 2-Substantial/Maximal Assistance-helper does MORE THAN HALF the effort. [place] lifts or holds trunk or limbs and provides more than half the effort. 0-Fgfdivmng-nmbgaq does ALL the effort. Patient does none of the effort to complete the activity. Or, the assistance of 2 or more helpers is required for the patient to complete the activity. If activity was not attempted, code reason: 7-Patient Refused. 9-Not Applicable-not attempted and the patient did not perform the activity before the current illness, exacerbation or injury. 10-Not Attempted due to Environmental Limitations-(lack of equipment, weather restraints, etc.). 88-Not Attempted due to Medical Conditions or Safety Concerns. Roll Left & Right (QC): 6 Sit to Lying (QC): 6 Lying to Sitting/Side of Bed(Q: 6 Sit to Stand (QC): 6 Gait Training Does the Patient Walk?: Yes Distance: 400 feet Walk 10 feet (QC): 6 Walk 50 ft with 2 Turns(QC): 6 Walk 150 ft (QC): 4 Gait Persons Needed: 1 Gait Assistive Device: FWW Assessment Current Status: Excellent Progress Patient tolerated treatment well. Demonstrate independence with all observed bed mobility and transfers. Patient ambulates 400 feet with FWW, with SBA and verbal cues for safety, progression and conservation of energy. He required SBA as he tends not to observed obstacles at times. Patient in bed post treatment with all needs met, nursing notified, call light in reach. PT Coal Trimmer Goals Snf Goals PT Snf Goals Time Frame: Feb 18, 2023 Roll Left & Right (QC): 6 Sit to Lying (QC): 6 Lying-Sitting on Side/Bed(QC): 6 Sit to Stand (QC): 6 Chair/Arl-nw-Knosl Xfer(QC): 6 Toilet Transfer (QC): 6 Walk 10 feet (QC): 6 Walk 50ft with 2 Turns (QC): 6 Walk 150 ft (QC): 6 PT Plan Treatment/Plan Treatment Plan: Continue Plan of Care Treatment Plan: Education, Functional Activity Karon, Functional Strength, Gait, Safety, Therapeutic Exercise Treatment Duration: Feb 18, 2023 Frequency: 6 times per week Estimated Hrs Per Day: .25 hour per day Patient and/or Family Agrees t: Yes Safety Risks/Education Patient Education: Gait Training, Transfer Techniques Teaching Recipient: Patient Teaching Methods: Demonstration, Discussion Response to Teaching: Verbalize Understanding, Unable to Return Demonstration, Return Demonstration Time Time In: 1021 Time Out: 1031 DATE: Feb 08, 2023 Total Billed Treatment Time: 10 Total Billed Treatment Visit, ANGELICA Solorio PT Feb 08, 2023 11:13
[2023-02-08 11:26] VITALS: BP 174/79
[2023-02-08 14:10] VITALS: BP 174/79
[2023-02-08] MEDS ORDERED: ENOXAPARIN 40 MG/0.4 ML (LOVENOX) SYR SC SCH (19:00)
[2023-02-08] MEDS ORDERED: GABAPENTIN 300 MG (NEURONTIN) CAP PO SCH (21:00)
[2023-02-08] MEDS ORDERED: SERTRALINE 100 MG (ZOLOFT) TAB PO SCH (21:00)
== END 2023-02-08 10:08 | disposition home health service (06) ==
LOC: EDUNIT# 16:36 → ER 16:39 → 4TH 18:32
PROVIDERS: ADMIT Internal Medicine; ATTEND Internal Medicine
DX: I12.9 Hypertensive chronic kidney disease with stage 1 through stage 4 chronic kidney disease, or unspecified chronic kidney disease (principal); N18.32 Chronic kidney disease, stage 3b; E11.22 Type 2 diabetes mellitus with diabetic chronic kidney disease; N17.9 Acute kidney failure, unspecified; E11.649 Type 2 diabetes mellitus with hypoglycemia without coma; E78.5 Hyperlipidemia, unspecified; E87.20 Acidosis, unspecified; D64.9 Anemia, unspecified; R79.89 Other specified abnormal findings of blood chemistry; F43.10 Post-traumatic stress disorder, unspecified; Z79.899 Other long term (current) drug therapy; Z79.4 Long term (current) use of insulin
CPT/HCPCS: 36415; 70450; 74176; 76705; 80053; 80074; 81000; 82550; 82947; 83690; 83735; 85025; 86308; 93005; 96372; 96375; G0378

== ENCOUNTER 2023-02-20 18:12 | Inpatient (IN) | payer OTHER, MEDICARE ==
[~2023-02-20] VITALS: Ht 172.7 cm; Wt 77.3 kg
[~2023-02-20 18:12] MED LIST: AMLO-250 PO; AMLO-251 PO; CHOL10004 PO; GABA300C PO; INSU100V6 SQ; LISI5TAB20 PO; LOPE2CAP PO; MAGN400T39 PO; NF-SODBICA PO; ONDA8TAB13 PO; ROSU40TA23 PO; SERT-414 PO
--- NOTE | 2023-02-20 19:05 | ED Neurological Problem ---
General Chief Complaint: Dizziness/Syncope Stated Complaint: BLERD VISION Nursing Triage Note: PT TO RM 2 PT CO OF DIZZINESS, DOUBLE VISION, WHITE, HAS DIFFICULTY WALKING FOR APPROX 3 DAYS. PT STATES HAD EPISODE OF CHEST PAIN 2 DAYS AGO BUT NOT SINCE. PT HAD HTN THIS AM AND WAS TOLD TO TAKE NORVASC 5MG AND COME TO ED. Source: patient Exam Limitations: no limitations History of Present Illness Date Seen by Provider: Feb 20, 2023 Time Seen by Provider: 18:45 Initial Comments Patient is a 77-year-old male who presents to the emergency room with a chief complaint 3 days of dizziness, feeling off balance, "double vision" and frontal headache. Patient states he noted the symptoms on Monday of last week. He has not taken anything for the headache. He has a history of diabetes and hypertension. He takes good care of his blood pressure and blood sugar. He denies recent fevers or chills, was in the hospital about a week ago with nausea vomiting and diarrhea. He had 1 episode of vomiting yesterday he believes related to the dizziness. He also states that he "lost his voice" yesterday and could not really talk. He does state that he feels like his speech is still a little "off". No recent trauma. No unilateral weakness numbness or tingling. No chest pain or shortness of breath. No abdominal pain. No history of known cardiac disease. , lives alone with his dog. Timing/Duration: other (3 days) Severity: severe Associated Symptoms: nausea/vomiting (vomiting x1 yesterday), slurred speech, trouble walking, vision changes ("double vision") Allergies and Home Medications Allergies Coded Allergies: Penicillins (Verified Allergy, Unknown, 07/06/21) Patient Home Medication List Home Medication List Reviewed: Yes Amlodipine Besylate (Amlodipine Besylate) 10 Mg Tablet, 10 MG PO DAILY Prescribed by: PALMA CORNELL on 02/08/23 0909 Cholecalciferol (Vitamin D3) (Vitamin D3) 25 Mcg (1000 Unit) Tablet, 50 MCG PO HS, (Reported) Entered as Reported by: SEJAL PAYNE on 02/07/23 155 Gabapentin (Neurontin) 300 Mg Capsule, 300 MG PO HS, (Reported) Entered as Reported by: SEJAL PAYNE on 02/07/231551 Loperamide HCl (Loperamide) 2 Mg Capsule, 2 MG PO NEEDED PRN for DIARRHEA Prescribed by: PALMA CORNELL on 02/08/23942 Magnesium Oxide (Magnesium) 400 Mg Magnesium Tablet, 800 MG PO HS, (Reported) Entered as Reported by: SEJAL PAYNE on 02/07/231551 Ondansetron (Ondansetron Odt) 8 Mg Tab.rapdis, 8 MG PO Q8H PRN for NAUSEA/VOMITING-1ST LINE, (Reported) Entered as Reported by: SEJAL PAYNE on 02/07/231551 Rosuvastatin Calcium (Rosuvastatin Calcium) 40 Mg Tablet, 40 MG PO HS, (Rep orted) Entered as Reported by: SEJAL PAYNE on 02/07/231551 Sertraline HCl (Sertraline HCl) 100 Mg Tablet, 200 MG PO HS, (Reported) Entered as Reported by: SEJAL PAYNE on 02/07/231551 Sodium Bicarbonate (Sodium Bicarbonate) 650 Mg Tablet, 650 MG PO TID Prescribed by: PALMA CORNELL on 02/08/23942 Review of Systems Review of Systems Constitutional: see HPI Eyes: Vision Changes (double) Ears, Nose, Mouth, Throat: no symptoms reported Respiratory: no symptoms reported Gastrointestinal: constipation, nausea, vomiting Genitourinary: no symptoms reported Musculoskeletal: no symptoms reported Skin: no symptoms reported Psychiatric/Neurological: Headache, Other (balance and coordination issues) All Other Systems Reviewed Negative Unless Noted: Yes Past Nzfokof-Nrcxan-Xdjklz Hx Patient Social History Tobacco Use?: No Substance use?: No Alcohol Use?: No Pt feels they are or have been: No Immunizations Up To Date Influenza Vaccine Up-to-Date: No; Not Current First/Initial COVID19 Vaccinat: April COVID19 Vaccination Calvin: April COVID19 Vaccination Date: APRIL Past Medical History Surgery/Hospitalization HX: PMH: PTSD, DM2, HTN, HIGH CHOL, High Cholesterol, Hypertension Diabetes, Insulin dep PTSD Family Medical History No Pertinent Family Hx Physical Exam Vital Signs Vital Signs - First Documented 02/20/23 02/20/23 18:30 21:19 Temp 36.7 Pulse 78 Resp 18 B/P (MAP) 167/67 (100) Pulse Ox 95 O2 Delivery Room Air Capillary Refill : Less Than 3 Seconds Height, Weight, BMI Height: '" Weight: lbs. oz. kg; 25.00 BMI Method: General Appearance: WD/WN, no apparent distress HEENT: PERRL/EOMI, TMs normal, pharynx normal Neck: supple Respiratory: lungs clear, normal breath sounds, no respiratory distress, no accessory muscle use Cardiovascular: regular rate, rhythm Gastrointestinal: normal bowel sounds, non tender, soft Extremities: normal range of motion, non-tender, normal inspection, no pedal edema, no calf tenderness, normal capillary refill Neurologic/Psychiatric: alert, other (very slightly slurred speech; has to concerntrate significantly to perform finger to nose, by completes. Patient not ambulated due to fall risk. + Romberg) Crainal Nerves: normal hearing, PERRL Coordination/Gait: normal finger to nose, positive Romberg's sign Motor/Sensory: no motor deficit, no sensory deficit, pronator drift (L) ((slight)) Skin: normal color, warm/dry Stroke Onset of Symptoms Date of Onset of Symptoms: Feb 17, 2023 Onset of Symptoms: Yes NIH Stroke Scale Assessment Select: Initial Level of Consciousness: 0=Alert (0), Level of Consciousness- Questions: 0=Answers both month/age (0), LOC Commands: 0=Performs both tasks (0), Gaze: Normal (0), Visual Diaz: 0=No visual loss (0), Facial Movement (Facial Paresis): 0=Normal symmetrical mnt (0), Motor Function-Arms Right: 0=No drift (0), Motor Function-Arms Left: 0=No drift (0), Motor Function-Legs Right: 0=No drift (0), Motor Function-Legs Left: 0=No drift (0), Limb Ataxia: 0=Absent (0), Sensory: 0=Normal:no loss (0), Best Language: 0=No aphasia (0), Dysarthria: 1=Mild to moderate loss (1), Extinction & Inattention: 0=No abnormality (0), Total: 1 Stroke Thrombolytic Exclusion TPA Contraindication: Yes IV - TPa Received IV - TPa Procedure Performed?: No Progress/Results/Core Measures Results/Orders Lab Results Laboratory Tests Test 02/20/23 18:42 02/20/23 19:47 02/20/23 19:50 Range/Units White Blood Count 6.9 4.3-11.0 10^3/uL Red Blood Count 3.86 L 4.30-5.52 10^6/uL Hemoglobin 11.8 L 13.3-17.7 g/dL Hematocrit 36 L 40-54 % Mean Corpuscular Volume 93 80-99 fL Mean Corpuscular Hemoglobin 31 25-34 pg Mean Corpuscular Hemoglobin Concent 33 32-36 g/dL Red Cell Distribution Width 13.6 10.0-14.5 % Platelet Count 180 130-400 10^3/uL Mean Platelet Volume 9.6 9.0-12.2 fL Immature Granulocyte % (Auto) 0 % Neutrophils (%) (Auto) 56 42-75 % Lymphocytes (%) (Auto) 35 12-44 % Monocytes (%) (Auto) 8 0-12 % Eosinophils (%) (Auto) 1 0-10 % Basophils (%) (Auto) 1 0-10 % Neutrophils # (Auto) 3.9 1.8-7.8 10^3/uL Lymphocytes # (Auto) 2.4 1.0-4.0 10^3/uL Monocytes # (Auto) 0.5 0.0-1.0 10^3/uL Eosinophils # (Auto) 0.1 0.0-0.3 10^3/uL Basophils # (Auto) 0.0 0.0-0.1 10^3/uL Immature Granulocyte # (Auto) 0.0 0.0-0.1 10^3/uL Prothrombin Time 14.9 H 12.2-14.7 SEC INR Comment 1.1 0.8-1.4 Activated Partial Thromboplast Time 29 24-35 SEC D-Dimer 0.30 0.00-0.49 UG/ML Sodium Level 142 135-145 MMOL/L Potassium Level 3.3 L 3.6-5.0 MMOL/L Chloride Level 105 98-107 MMOL/L Carbon Dioxide Level 25 21-32 MMOL/L Anion Gap 12 5-14 MMOL/L Blood Urea Nitrogen 24 H 7-18 MG/DL Creatinine 2.03 H 0.60-1.30 MG/DL Estimat Glomerular Filtration Rate 33 BUN/Creatinine Ratio 12 Glucose Level 103 70-105 MG/DL Calcium Level 9.2 8.5-10.1 MG/DL Corrected Calcium 9.4 8.5-10.1 MG/DL Total Bilirubin 1.0 0.1-1.0 MG/DL Aspartate Amino Transf (AST/SGOT) 35 H 5-34 U/L Alanine Aminotransferase (ALT/SGPT) 41 0-55 U/L Alkaline Phosphatase 69 40-136 U/L Troponin I 0.031 H <0.028 NG/ML Total Protein 7.0 6.4-8.2 GM/DL Albumin 3.7 3.2-4.5 GM/DL Glucometer 99 70-110 MG/DL Urine Color YELLOW Urine Clarity CLEAR Urine pH 7.0 5-9 Urine Specific [place] 1.010 L 1.016-1.022 Urine Protein 1+ H NEGATIVE Urine Glucose (UA) NEGATIVE NEGATIVE Urine Ketones TRACE H NEGATIVE Urine Nitrite NEGATIVE NEGATIVE Urine Bilirubin NEGATIVE NEGATIVE Urine Urobilinogen 4.0 < = 1.0 MG/DL Urine Leukocyte Esterase NEGATIVE NEGATIVE Urine RBC (Auto) NEGATIVE NEGATIVE Urine RBC NONE /HPF Urine WBC 2-5 /HPF Urine Squamous Epithelial Cells 0-2 /HPF Urine Crystals NONE /LPF Urine Bacteria TRACE /HPF Urine Casts PRESENT /LPF Urine Hyaline Casts 5-10 H /LPF Urine Mucus NEGATIVE /LPF Urine Culture Indicated NO My Orders Orders - VIDYA SABA MD Cbc With Automated Diff (02/20/23:) Protime With Inr (02/20/23:) Partial Thromboplastin Time (02/20/23:00) Comprehensive Metabolic Panel (02/20/23:00) Fibrin Degradation Products (02/20/23:00) Troponin I [place] (02/20/23:00) Ua Culture If Indicated (02/20/23:) Chest 1 View, Ap/Pa Only (02/20/23:00) Ekg Tracing (02/20/23:00) Nothing By Mouth (02/20/23 Dinner) Accucheck Stat ONCE (02/20/23:00) Ed Iv/Invasive Line Start (02/20/23:00) Ed Iv/Invasive Line Start (02/20/23 19:00) Vital Signs Stroke Patient Q15M (02/20/23 19:00) Ct Head Wo-R/O Stroke (02/20/23:00) O2 (02/20/23:00) Monitor-Rhythm Ecg Trace Only (4/10/23 19:00) Dysphagia Screening Tool Q10MX1 (02/20/23 19:00) Post Thrombolytic Adminstratio (02/20/23 19:00) Lipid Panel (02/21/23 06:00) Aspirin Chewable Tablet (Baby Aspirin Ch (02/20/23 19:45) Ed Admission (Communication) (02/20/23 21:17) Clopidogrel Tablet (Plavix Tablet) (02/20/23 21:30) Medications Given in ED Current Medications Medications Dose Ordered Sig/Maribel Route Start Time Stop Time Status Last Admin Dose Admin Aspirin 324 mg ONCE ONCE PO 02/20/23 19:45 02/20/23 19:46 DC 02/20/23 19:55 324 MG Vital Signs/I&O 02/20/23 02/20/23 18:30 21:19 Temp 36.7 36.7 Pulse 78 81 Resp 18 18 B/P (MAP) 167/67 (100) 118/96 Pulse Ox 95 O2 Delivery Room Air Blood Pressure Mean: 100 Progress Progress Note : Time: 21:40 Progress Note Patient seen and examined by me. Evaluation today includes physical exam, CBC, chem 12, coags, D-dimer, EKG, troponin, chest x-ray, CT head without contrast. Pertinent physical exam findings, well-developed well-nourished elderly male in no acute distress. Very mild dysarthria. Positive Romberg, no motor or sensory deficits. Very minimally ataxic on [id number]. Gait not tested due to concern for fall. Tongue is midline. Handling his secretions well. Heart initially is regular however on EKG I do note some intermittent irregularity. Lungs are clear. Abdomen is soft, benign. Differential diagnosis based on history and physical, cerebellar stroke, other acute ischemic stroke, brain tumor, concern for A-fib. Labs reviewed, CBC is normal. Chemistry shows chronic kidney disease with a serum creatinine of 2.0, slightly low potassium at 3.3.. Coags slightly high PTT. D-dimer 0.3. Troponin is mildly elevated at 0.03. Chest x-ray unremarkable. CT head noncontrast read by radiology, no acute findings. Patient is treated with aspirin and Plavix 300 mg. Patient would not be a candidate for tPA secondary to onset of symptoms. Of note during his hospitalization the patient has converted to full on A-fib rate controlled in the 80s. On review of medical records I did note 1 prior EKG from 02-06-2023 which showed rate controlled A-fib. Patient at high risk for ischemic stroke, suspect that he has had cerebellar stroke. Case was discussed with Dr. Guerrero REYES stroke neurology who recommends holding off on full anticoagulation until we evaluate stroke burden on MRI. He is okay with antiplatelets and baby aspirin. No emergent reason for stat CT angio. Will admit to the ICU. Discu ssed with Dr. Porter who accepts patient for admission. Patient is made aware and agreeable with the plan of care. Vital signs remained stable. Initial ECG Impression Date: Feb 20, 2023 Initial ECG Impression Time: 19:33 Initial ECG Rate: 77 Initial ECG Rhythm: Normal Sinus (With intermittent arrhythmia) Initial ECG Impression: Normal Diagnostic Imaging Diagonstic Imaging: Xray Plain Films/CT/US/NM/MRI: chest Comments [facility] [place], [place] NAME: FILIPE FARRELL [facility] REC#: [id number] PT STATUS: REG ER : 1945 PHYSICIAN: VIDYA SABA MD ADMIT DATE: 02/20/23/ER Draft Date of Exam:02/20/23 CHEST 1 VIEW, AP/PA ONLY INDICATION: Dizziness, diplopia and headache Heart size and pulmonary vascularity are within normal limits. There is mild increased density in the right perihilar region which may represent area of edema or infiltrate. No pneumothorax is identified and there is no significant pleural fluid. IMPRESSION: Right infrahilar infiltrate could represent pneumonia. Clinical correlation is recommended. Dictated on workstation # [id number] Dict: 02/20/231930 Trans: 02/20/231933 BENITO [id number] Interpreted by: PATRICIA LUO MD Electronically signed by: Diagonstic Imaging: CT Comments [facility] [place] [place] NAME: FILIPE FARRELL [facility] REC#: [id number] PT STATUS: REG ER : 1945 PHYSICIAN: VIDYA SABA MD ADMIT DATE: 02/20/23/ER Signed Date of Exam:02/20/23 CT HEAD WO-R/O STROKE CLINICAL INDICATIONS: Patient with dizziness and double vision and headache. Patient has difficulty walking for approximately 3 days. EXAM: Axial CT scan of the brain performed without IV contrast. High-resolution axial CT brain images with sagittal and coronal reformations were also created. Auto Exposure Controls were utilized during the CT exam to meet ALARA standards for radiation dose reduction. COMPARISON: Head CT without contrast dated 02/06/2023. FINDINGS: There is no evidence of acute cerebral infarct, intracranial hemorrhage, or gross mass effect. The brain parenchymal volume appears appropriate for patient's age. There is normal zavala-white matter distinction. There is no significant midline shift or herniation. There is no evidence of hydrocephalus. The basal cisterns are unremarkable. The skull, extracranial soft tissue, and orbits are unremarkable. There is minimal mucosal thickening involving the ethmoid sinus. Temporal bones show no significant abnormality. IMPRESSION: 1: There is no CT evidence of acute intracranial process. There is no dense vessel sign. Results of this report was discussed with Dr. Saba via the telephone on 02/20/2023 at 1930 hours. Dictated by: Dictated on workstation # [id number] Dict: 02/20/231924 Trans: 02/20/232027 [facility] [id number] Interpreted by: RANJAN RAND MD Electronically signed by: RANJAN RAND MD 02/20/232027 Departure Communication (Admissions) Time/Spoke to Admitting Phy: 20:[address] Porter on for the hospitalist service. Would like [facility] neuro consult. ICU admission Time/Spoke to Consulting Phy: 21:[address] Guerrero REYES stroke neurology. Would hold off on full anticoagulation. Okay with Plavix load and daily and baby aspirin. MRI/MRA tomorrow Impression Primary Impression: Cerebellar stroke Additional Impression: Atrial fibrillation by electrocardiogram Disposition: ADMITTED INPATIENT Condition: Stable Admissions Decision to Admit Reason: Admit from ER (General) Decision to Admit/Date: Feb 20, 2023 Time/Decision to Admit Time: 21:10 Departure-Patient Inst. Referrals: NO,LOCAL PHYSICIAN (PCP/Family) Primary Care Physician VIDYA SABA MD Feb 20, 2023 19:05
[2023-02-20 19:08] LABS: BASOPHILS % (AUTO) 1 % (0-10); EOSINOPHILS # (AUTO) 0.1 10^3/uL (0.0-0.3); EOSINOPHILS % (AUTO) 1 % (0-10); HEMATOCRIT 36 % (40-54); HEMOGLOBIN 11.8 g/dL (13.3-17.7); LYMPHOCYTES # (AUTO) 2.4 10^3/uL (1.0-4.0); LYMPHOCYTES % (AUTO) 35 % (12-44); MEAN CORPUSCULAR HEMOGLOBIN 31 pg (25-34); MEAN CORPUSCULAR HGB CONC 33 g/dL (32-36); MEAN CORPUSCULAR VOLUME 93 fL (80-99); MEAN PLATELET VOLUME 9.6 fL (9.0-12.2); MONOCYTES # (AUTO) 0.5 10^3/uL (0.0-1.0); MONOCYTES % (AUTO) 8 % (0-12); NEUTROPHILS # (AUTO) 3.9 10^3/uL (1.8-7.8); NEUTROPHILS % (AUTO) 56 % (42-75); PLATELET COUNT 180 10^3/uL (130-400); WHITE BLOOD COUNT 6.9 10^3/uL (4.3-11.0)
[2023-02-20 19:11] LABS: ALBUMIN 3.7 GM/DL (3.2-4.5)
[2023-02-20 19:12] LABS: POTASSIUM 3.3 MMOL/L (3.6-5.0)
[2023-02-20 19:13] LABS: CALCIUM 9.2 MG/DL (8.5-10.1)
[2023-02-20 19:17] LABS: FIBRIN DEGRADATION PRODUCTS 0.3 UG/ML (0.00-0.49); INR 1.1 (0.8-1.4); PROTHROMBIN TIME PATIENT 14.9 SEC (12.2-14.7)
--- NOTE | 2023-02-20 19:34 | Diagnostic Imaging Report ---
CLINICAL INDICATIONS: Patient with dizziness and double vision and headache. Patient has difficulty walking for approximately 3 days. EXAM: Axial CT scan of the brain performed without IV contrast. High-resolution axial CT brain images with sagittal and coronal reformations were also created. Auto Exposure Controls were utilized during the CT exam to meet ALARA standards for radiation dose reduction. COMPARISON: Head CT without contrast dated 02/06/2023. FINDINGS: There is no evidence of acute cerebral infarct, intracranial hemorrhage, or gross mass effect. The brain parenchymal volume appears appropriate for patient's age. There is normal zavala-white matter distinction. There is no significant midline shift or herniation. There is no evidence of hydrocephalus. The basal cisterns are unremarkable. The skull, extracranial soft tissue, and orbits are unremarkable. There is minimal mucosal thickening involving the ethmoid sinus. Temporal bones show no significant abnormality. IMPRESSION: 1: There is no CT evidence of acute intracranial process. There is no dense vessel sign. Results of this report was discussed with Dr. Armas via the telephone on 02/20/2023 at 1930 hours. Dictated by: Dictated on workstation # [id number]
--- NOTE | 2023-02-20 19:35 | Diagnostic Imaging Report ---
INDICATION: Dizziness, diplopia and headache Heart size and pulmonary vascularity are within normal limits. There is mild increased density in the right perihilar region which may represent area of edema or infiltrate. No pneumothorax is identified and there is no significant pleural fluid. IMPRESSION: Right infrahilar infiltrate could represent pneumonia. Clinical correlation is recommended. Dictated by: Dictated on workstation # [id number]
[2023-02-20] MEDS ORDERED: ASPIRIN 81 MG CHEW (CHILDREN'S ASA) PO ONE (19:45)
[2023-02-20 19:55] LABS: BILIRUBIN,URINE NEGATIVE (NEGATIVE); CLARITY,URINE CLEAR; COLOR,URINE YELLOW; GLUCOSE, URINE (UA) NEGATIVE (NEGATIVE); KETONES,URINE TRACE (NEGATIVE); LEUKOCYTE ESTERASE ,URINE NEGATIVE (NEGATIVE); NITRITE,URINE NEGATIVE (NEGATIVE); PROTEIN,URINE 1+ (NEGATIVE)
[2023-02-20 20:04] LABS: BACTERIA,URINE TRACE /HPF; SQUAMOUS EPITHELIAL CELL,UR 0-2 /HPF
[2023-02-20 20:27] LABS: CREATININE SERUM 2.03 MG/DL (0.60-1.30)
[2023-02-20] MEDS ORDERED: CLOPIDOGREL 300 MG (PLAVIX) TABLET PO ONE (21:30)
[2023-02-20] MEDS ORDERED: BISACODYL 10 MG SUPP (DULCOLAX) PR PRN (23:00)
[2023-02-20] MEDS ORDERED: diphenhydrAMINE 50 MG/ML INJ (BENADRYL) IVP PRN (23:00)
[2023-02-20] MEDS ORDERED: CALCIUM CARBONATE 500 MG (TUMS) TAB.CHEW PO PRN (23:00)
[2023-02-20] MEDS ORDERED: MELATONIN 3 MG TABLET PO PRN (23:00)
[2023-02-20] MEDS ORDERED: ANTACID SUSP 30 ML UDC (MYLANTA) PO PRN (23:00)
[2023-02-20] MEDS ORDERED: ACETAMINOPHEN 325 MG TABLET PO PRN (23:00)
[2023-02-20] MEDS ORDERED: ALPRAZolam 1 MG (XANAX) TAB PO PRN (23:00)
[2023-02-20] MEDS ORDERED: ONDANSETRON 4 MG (ZOFRAN) ORAL DISSOLVE TAB PO PRN (23:00)
[2023-02-20] MEDS ORDERED: PATIENT MAY USE OWN MEDS, ALL PO SCH (23:00)
[2023-02-20] MEDS ORDERED: hydrALAZINE (APESOLINE) 20 MG/ML VIAL IV PRN (23:00)
[2023-02-20] MEDS ORDERED: HYDROmorphone 2 MG/ML VIAL (DILAUDID) IV PRN (23:00)
[2023-02-20] MEDS ORDERED: NS IV 500 ML 500 ML IV PRN ×2 (23:00)
[2023-02-20] MEDS ORDERED: polyethylene glycoL POWDER 17 GM (MIRALAX) PACK PO PRN (23:00)
[2023-02-20] MEDS ORDERED: LACTULOSE SYRUP 10GM/15ML (ENULOSE) 30ML UDC PO PRN (23:00)
[2023-02-20] MEDS ORDERED: ONDANSETRON 4 MG/2 ML (SDV) Z0FRAN IV PRN (23:00)
[2023-02-20] MEDS ORDERED: ENOXAPARIN 40 MG/0.4 ML (LOVENOX) SYR SC SCH (23:00)
[2023-02-20] MEDS ORDERED: NITROGLYCERIN 0.4 MG SL TABS BTL 25'S SL PRN (23:00)
[2023-02-20] MEDS ORDERED: diphenhydrAMINE 25 MG TAB (BENADRYL) PO PRN (23:00)
[2023-02-20] MEDS ORDERED: MILK OF MAGNESIA 400 MG/5 ML 30 ML UDC PO PRN (23:00)
[2023-02-20] MEDS ORDERED: RT-ALBUTEROL SULF 2.5 MG/3 ML PRE-MIX VIAL INH PRN (23:15)
--- NOTE | 2023-02-21 00:21 | Tele-ICU Progress Note ---
Progress Note 77M with DM, HTN admitted with cerebellar CVA. Presented with c/o dizziness, imbalance, double vision and frontal WHITE x3 days. Admitted 1 wk ago for N/V/D. Had vomiting x1 yesterday, which he associates with the dizzines. A/P: - dizziness: initially suspected cerebellar CVA. Telestroke consulted, patient outside window for intervention. CT head negative for acute ischemia. Can be negative in the acute setting, but with 3 days of symptoms would expect ischemic changes. MRI for AM for definitive evidence on CVA vs no CVA. Would MRI auditory canal with and without contrast to eval for vertigo. - afib: rate controlled at 80. Has been documented previously. Plavix loading given in ED. Will monitor, maintain rate control. - DM: diabetic diet, insulin sliding scale Patient assessed via real-time audiovisual communication system. CCT14 min Focused Exam Height, Weight, BMI Height: '" Weight: lbs. oz. kg; 25.00 BMI Method: ALINE KEN MD Feb 21, 2023 00:21
[2023-02-21] MEDS: ENOXAPARIN 80 MG/0.8 ML (LOVENOX) SYR SC SCH ×3 (01:43→23:18)
[2023-02-21] MEDS: POTASSIUM CL 10MEQ/50ML IVPB 50 ML IV SCH ×2 (01:43→02:42)
[2023-02-21] MEDS: inSUlin ASPART (NovoLOG) 1 UNIT/0.01 ML (CHARGE PER UNIT) SC SCH ×5 (01:49→21:48)
[2023-02-21 05:01] LABS: BASOPHILS % (AUTO) 1 % (0-10); EOSINOPHILS # (AUTO) 0.2 10^3/uL (0.0-0.3); EOSINOPHILS % (AUTO) 3 % (0-10); HEMATOCRIT 34 % (40-54); HEMOGLOBIN 11.3 g/dL (13.3-17.7); LYMPHOCYTES # (AUTO) 3.3 10^3/uL (1.0-4.0); LYMPHOCYTES % (AUTO) 46 % (12-44); MEAN CORPUSCULAR HEMOGLOBIN 31 pg (25-34); MEAN CORPUSCULAR HGB CONC 33 g/dL (32-36); MEAN CORPUSCULAR VOLUME 93 fL (80-99); MEAN PLATELET VOLUME 9.5 fL (9.0-12.2); MONOCYTES # (AUTO) 0.7 10^3/uL (0.0-1.0); MONOCYTES % (AUTO) 10 % (0-12); NEUTROPHILS % (AUTO) 41 % (42-75); PLATELET COUNT 152 10^3/uL (130-400); WHITE BLOOD COUNT 7.2 10^3/uL (4.3-11.0)
[2023-02-21 05:22] LABS: ALANINE AMINOTRANSFERASE 36 U/L (0-55); ALBUMIN 3.2 GM/DL (3.2-4.5); ALKALINE PHOSPHATASE 69 U/L (40-136); BILIRUBIN,TOTAL 0.7 MG/DL (0.1-1.0); BUN/CREATININE RATIO 13; CALCIUM 8.7 MG/DL (8.5-10.1); CARBON DIOXIDE 25 MMOL/L (21-32); CHLORIDE 107 MMOL/L (98-107); CHOLESTEROL 118 MG/DL (< 200); CREATININE SERUM 1.78 MG/DL (0.60-1.30); GFR ESTIMATED 39; GLUCOSE 118 MG/DL (70-105); HDL CHOLESTEROL 42 MG/DL (40-60); MAGNESIUM 1.5 MG/DL (1.6-2.4); PHOSPHORUS 2.8 MG/DL (2.3-4.7); POTASSIUM 3.8 MMOL/L (3.6-5.0); SODIUM 141 MMOL/L (135-145); TOTAL PROTEIN 6.3 GM/DL (6.4-8.2); TRIGLYCERIDES 97 MG/DL (<150); VLDL CHOLESTEROL 19 MG/DL (5-40)
[2023-02-21] MEDS ORDERED: MAGNESIUM 1 GM/100 ML IVPB 100 ML IV SCH ×2 (06:00)
[2023-02-21] MEDS ORDERED: POTASSIUM CL 10MEQ/50ML IVPB 50 ML IV SCH ×2 (06:00)
[2023-02-21] MEDS ORDERED: KCL 20 MEQ TAB (K-DUR) PO SCH ×2 (06:00)
[2023-02-21] MEDS ORDERED: KCL 20 MEQ TAB (K-DUR) PO ONE (06:15)
[2023-02-21] MEDS: MAGNESIUM 1 GM/100 ML IVPB 100 ML IV SCH ×2 (06:33→09:10)
--- NOTE | 2023-02-21 08:21 | Consultation-Cardiology ---
HPI-Cardiology Cardiology Consultation Date of Consultation 02/21/23 Date of Admission Time Seen by Provider: 08:16 Indication: TIA HPI 77-year-old gentleman with history of diabetes mellitus, peripheral neuropathy, hypertension and hyperlipidemia. Started to have double vision and frontal headache in addition to unsteady gait. Lasted for few days. Came into the emergency room for evaluation and suspicion for CVA. CT scan of the head was negative. Patient is scheduled for MRI. Reporting improvement in his double vision and headache. Overall feeling better. No new complaint. Home Medications & Allergies Allergies: Coded Allergies: Penicillins (Verified Allergy, Unknown, 07/06/21) Home Medication List Reviewed: Yes IQA-Uihcyu-Ptutep Hx Patient Social History Marital Status: Employed/Student: retired Smoking Status: Former Smoker Have you traveled recently?: No Alcohol Use?: No Immunizations Up To Date Date of Influenza Vaccine: Nov 17, 2022 Past Medical History Discussed below Family Medical History Significant Family History: No Pertinent Family Hx Review of Systems-General Review of Systems Constitutional: see HPI, other (Frontal headache) EENTM: see HPI, other (Double vision) Respiratory: no symptoms reported Cardiovascular: see HPI, chest pain; No edema, No Hx of Intervention, No palpitations, No syncope, No vascular heart diseas, No other Gastrointestinal: see HPI, constipation, nausea, vomiting Genitourinary: no symptoms reported, see HPI Musculoskeletal: no symptoms reported, see HPI Skin: no symptoms reported, see HPI Psychiatric/Neurological: No Symptoms Reported, See HPI All Other Systems Reviewed Negative Unless Noted: Yes Reviewed Test Results Reviewed Test Results Lab Laboratory Tests Test 02/20/23 18:42 02/20/23 19:47 02/20/23 19:50 02/21/23 01:42 Range/Units White Blood Count 6.9 4.3-11.0 10^3/uL Red Blood Count 3.86 L 4.30-5.52 10^6/uL Hemoglobin 11.8 L 13.3-17.7 g/dL Hematocrit 36 L 40-54 % Mean Corpuscular Volume 93 80-99 fL Mean Corpuscular Hemoglobin 31 25-34 pg Mean Corpuscular Hemoglobin Concent 33 32-36 g/dL Red Cell Distribution Width 13.6 10.0-14.5 % Platelet Count 180 130-400 10^3/uL Mean Platelet Volume 9.6 9.0-12.2 fL Immature Granulocyte % (Auto) 0 % Neutrophils (%) (Auto) 56 42-75 % Lymphocytes (%) (Auto) 35 12-44 % Monocytes (%) (Auto) 8 0-12 % Eosinophils (%) (Auto) 1 0-10 % Basophils (%) (Auto) 1 0-10 % Neutrophils # (Auto) 3.9 1.8-7.8 10^3/uL Lymphocytes # (Auto) 2.4 1.0-4.0 10^3/uL Monocytes # (Auto) 0.5 0.0-1.0 10^3/uL Eosinophils # (Auto) 0.1 0.0-0.3 10^3/uL Basophils # (Auto) 0.0 0.0-0.1 10^3/uL Immature Granulocyte # (Auto) 0.0 0.0-0.1 10^3/uL Prothrombin Time 14.9 H 12.2-14.7 SEC INR Comment 1.1 0.8-1.4 Activated Partial Thromboplast Time 29 24-35 SEC D-Dimer 0.30 0.00-0.49 UG/ML Sodium Level 142 135-145 MMOL/L Potassium Level 3.3 L 3.6-5.0 MMOL/L Chloride Level 105 98-107 MMOL/L Carbon Dioxide Level 25 21-32 MMOL/L Anion Gap 12 5-14 MMOL/L Blood Urea Nitrogen 24 H 7-18 MG/DL Creatinine 2.03 H 0.60-1.30 MG/DL Estimat Glomerular Filtration Rate 33 BUN/Creatinine Ratio 12 Glucose Level 103 70-105 MG/DL Calcium Level 9.2 8.5-10.1 MG/DL Corrected Calcium 9.4 8.5-10.1 MG/DL Total Bilirubin 1.0 0.1-1.0 MG/DL Aspartate Amino Transf (AST/SGOT) 35 H 5-34 U/L Alanine Aminotransferase (ALT/SGPT) 41 0-55 U/L Alkaline Phosphatase 69 40-136 U/L Troponin I 0.031 H <0.028 NG/ML Total Protein 7.0 6.4-8.2 GM/DL Albumin 3.7 3.2-4.5 GM/DL Glucometer 99 184 H 70-110 MG/DL Urine Color YELLOW Urine Clarity CLEAR Urine pH 7.0 5-9 Urine Specific [place] 1.010 L 1.016-1.022 Urine Protein 1+ H NEGATIVE Urine Glucose (UA) NEGATIVE NEGATIVE Urine Ketones TRACE H NEGATIVE Urine Nitrite NEGATIVE NEGATIVE Urine Bilirubin NEGATIVE NEGATIVE Urine Urobilinogen 4.0 < = 1.0 MG/DL Urine Leukocyte Esterase NEGATIVE NEGATIVE Urine RBC (Auto) NEGATIVE NEGATIVE Urine RBC NONE /HPF Urine WBC 2-5 /HPF Urine Squamous Epithelial Cells 0-2 /HPF Urine Crystals NONE /LPF Urine Bacteria TRACE /HPF Urine Casts PRESENT /LPF Urine Hyaline Casts 5-10 H /LPF Urine Mucus NEGATIVE /LPF Urine Culture Indicated NO Test 02/21/23 04:33 Range/Units White Blood Count 7.2 4.3-11.0 10^3/uL Red Blood Count 3.65 L 4.30-5.52 10^6/uL Hemoglobin 11.3 L 13.3-17.7 g/dL Hematocrit 34 L 40-54 % Mean Corpuscular Volume 93 80-99 fL Mean Corpuscular Hemoglobin 31 25-34 pg Mean Corpuscular Hemoglobin Concent 33 32-36 g/dL Red Cell Distribution Width 13.5 10.0-14.5 % Platelet Count 152 130-400 10^3/uL Mean Platelet Volume 9.5 9.0-12.2 fL Immature Granulocyte % (Auto) 0 % Neutrophils (%) (Auto) 41 L 42-75 % Lymphocytes (%) (Auto) 46 H 12-44 % Monocytes (%) (Auto) 10 0-12 % Eosinophils (%) (Auto) 3 0-10 % Basophils (%) (Auto) 1 0-10 % Neutrophils # (Auto) 3.0 1.8-7.8 10^3/uL Lymphocytes # (Auto) 3.3 1.0-4.0 10^3/uL Monocytes # (Auto) 0.7 0.0-1.0 10^3/uL Eosinophils # (Auto) 0.2 0.0-0.3 10^3/uL Basophils # (Auto) 0.0 0.0-0.1 10^3/uL Immature Granulocyte # (Auto) 0.0 0.0-0.1 10^3/uL Sodium Level 141 135-145 MMOL/L Potassium Level 3.8 3.6-5.0 MMOL/L Chloride Level 107 98-107 MMOL/L Carbon Dioxide Level 25 21-32 MMOL/L Anion Gap 9 5-14 MMOL/L Blood Urea Nitrogen 23 H 7-18 MG/DL Creatinine 1.78 H 0.60-1.30 MG/DL Estimat Glomerular Filtration Rate 39 BUN/Creatinine Ratio 13 Glucose Level 118 H 70-105 MG/DL Calcium Level 8.7 8.5-10.1 MG/DL Corrected Calcium 9.3 8.5-10.1 MG/DL Phosphorus Level 2.8 2.3-4.7 MG/DL Magnesium Level 1.5 L 1.6-2.4 MG/DL Total Bilirubin 0.7 0.1-1.0 MG/DL Aspartate Amino Transf (AST/SGOT) 35 H 5-34 U/L Alanine Aminotransferase (ALT/SGPT) 36 0-55 U/L Alkaline Phosphatase 69 40-136 U/L Troponin I < 0.028 <0.028 NG/ML Total Protein 6.3 L 6.4-8.2 GM/DL Albumin 3.2 3.2-4.5 GM/DL Triglycerides Level 97 <150 MG/DL Cholesterol Level 118 < 200 MG/DL LDL Cholesterol Direct 52 1-129 MG/DL VLDL Cholesterol 19 5-40 MG/DL HDL Cholesterol 42 40-60 MG/DL Physical Exam Physical Exam Vital Signs Vital Signs - First Documented 02/20/23 02/20/23 18:30 21:19 Temp 36.7 Pulse 78 Resp 18 B/P (MAP) 167/67 (100) Pulse Ox 95 O2 Delivery Room Air Capillary Refill : Less Than 3 Seconds Height, Weight, BMI Height: '" Weight: lbs. oz. kg; 25.68 BMI Method: General Appearance: No Apparent Distress, WD/WN Eyes: Bilateral Eye Normal Inspection, Bilateral Eye PERRL, Bilateral Eye EOMI HEENT: PERRL/EOMI, TMs Normal, Normal ENT Inspection, Pharynx Normal, Moist Mucous Membranes Neck: Full Range of Motion, Normal Inspection, Non Tender, Supple, Carotid Bruit Respiratory: Chest Non Tender, Normal Breath Sounds, No Accessory Muscle Use, No Respiratory Distress Cardiovascular: Regular Rate, Rhythm, No Edema, No Gallop, No JVD, No Murmur, Normal Peripheral Pulses Gastrointestinal: Normal Bowel Sounds, No Organomegaly, No Pulsatile Mass, Non Tender, Soft Back: Normal Inspection, No CVA Tenderness, No Vertebral Tenderness Extremity: Normal Capillary Refill, Normal Inspection, Normal Range of Motion, Non Tender, No Calf Tenderness, No Pedal Edema Neurologic/Psychiatric: Alert, Oriented x3, No Motor/Sensory Deficits, Normal Mood/Affect Skin: Normal Color, Warm/Dry Lymphatic: No Adenopathy A/P-Cardiology Admission Diagnosis Acute CVA Chest pain Hypertension Hyperlipidemia Diabetes mellitus Assessment/Plan Acute CVA versus TIA Double vision with frontal headache and unsteady gait Reporting improvement CT of the head did not show any acute abnormality Scheduled for MRI today I will evaluate 2D echo Chest pain, nonspecific etiology Reporting occasional left-sided chest pain. Multiple risk factors for coronary artery disease Troponin initially was minimally elevated repeat troponin was normal. Abnormal EKG with right bundle branch block, multiple episodes of paroxysmal atrial tachycardia Starting beta-blockers Hypertension, starting metoprolol and monitor blood pressure Hyperlipidemia, monitor lipids Has been on rosuvastatin Diabetes mellitus, followed and managed by primary care physician Peripheral neuropathy. Maintained on gabapentin Clinical Quality Measures Stroke: Date of last known well: Feb 17, 2023 BEVERLY COLE MD Feb 21, 2023 08:21
[2023-02-21] MEDS: ASPIRIN E.C. 81 MG (ECOTRIN) TAB PO SCH (09:10)
[2023-02-21] MEDS: SENNOSIDES 8.6 MG (SENOKOT) TAB PO SCH ×2 (09:11→21:36)
[2023-02-21] MEDS: DOCUSATE SODIUM 100 MG (COLACE) CAP PO SCH ×2 (09:11→21:36)
[2023-02-21] MEDS: CLOPIDOGREL 75 MG (PLAVIX) TABLET PO SCH (09:11)
--- NOTE | 2023-02-21 10:26 | History & Physical ---
NORA PALUMBO 02/21/23 1026: History of Present Illness History of Present Illness Reason for visit/HPI CC: Dizziness and nausea HPI: Mr. Blackmon is a 77 yo male with pmhx significant for DM2, HTN, high cholesterol admitted for possible cerebellar stroke with associated dizziness, imbalance, double vision, and frontal WHITE x 3 days and Afib with rate control in ED. Today he reports he is feeling better. Reports he no longer has double vision, only dizziness and nausea when moving his head. Denies any vomiting, CP, or SOB. NO new or worsening sx. Date of Admission Feb 20, 2023 at 22:39 Date Seen by a Provider: Feb 21, 2023 Time Seen by a Provider: 07:30 I consulted on this patient on 02/21/23 10:20 Attending Physician No,Local Physician Admitting Physician Admitting Physician: Laina Mason DO Attending Physician: Laina Mason DO Consult Allergies and Home Medications Allergies Coded Allergies: Penicillins (Verified Allergy, Unknown, 07/06/21) Patient Home Medication List Home Medication List Reviewed: Yes Amlodipine Besylate (Amlodipine Besylate) 5 Mg Tablet, 2.5 MG PO HS, (Reported) Entered as Reported by: SEJAL PAYNE on 02/21/231604 Last Action: Continued Cholecalciferol (Vitamin D3) (Vitamin D3) 25 Mcg (1000 Unit) Tablet, 50 MCG PO HS, (Reported) Entered as Reported by: SEJAL PAYNE on 02/07/231551 Last Action: Continued Gabapentin (Neurontin) 300 Mg Capsule, 300 MG PO HS, (Reported) Entered as Reported by: SEJAL PAYNE on 02/07/231551 Last Action: Continued Insulin Glargine,Hum.rec.anlog (Lantus) 100 Unit/Ml Vial, 40 UNIT SQ HS, (Reported) Entered as Reported by: SEJAL PAYNE on 02/21/23 160 Last Action: Held Loperamide HCl (Loperamide) 2 Mg Capsule, 2 MG PO NEEDED PRN for DIARRHEA Prescribed by: PALMA CORNELL on 02/08/23 8437 Last Action: Continued Magnesium Oxide (Magnesium) 400 Mg Magnesium Tablet, 800 MG PO HS, (Reported) Entered as Reported by: SEJAL PAYNE on 02/07/23 262 Last Action: Converted Ondansetron (Ondansetron Odt) 8 Mg Tab.rapdis, 8 MG PO Q8H PRN for NA USEA/VOMITING-1ST LINE, (Reported) Entered as Reported by: SEJAL PAYNE on 02/07/231551 Last Action: Converted Rosuvastatin Calcium (Rosuvastatin Calcium) 40 Mg Tablet, 40 MG PO HS, (Reported) Entered as Reported by: SEJAL PAYNE on 02/07/231551 Last Action: Converted Sertraline HCl (Sertraline HCl) 100 Mg Tablet, 200 MG PO HS, (Reported) Entered as Reported by: SEJAL PAYNE on 02/07/231551 Last Action: Continued Sodium Bicarbonate (Sodium Bicarbonate) 650 Mg Tablet, 650 MG PO HS, (Reported) Entered as Reported by: SEJAL PAYNE on 02/21/23 160 Last Action: Continued Discontinued Medications Amlodipine Besylate (Amlodipine Besylate) 10 Mg Tablet, 10 MG PO DAILY Discontinued Reason: No Longer Taking Prescribed by: PALMA CORNELL on 02/08/23942 Last Action: Discontinued Sodium Bicarbonate (Sodium Bicarbonate) 650 Mg Tablet, 650 MG PO TID Discontinued Reason: Duplicate Order Prescribed by: PALMA CORNELL on 02/08/23942 Last Action: Discontinued Past Sgnxcji-Fzdqmf-Dnlfvi Hx Patient Social History Marrital Status: Employed/Student: retired Tobacco Use?: No Smoking Status: Former Smoker Smokeless Tobacco Frequency: Never a User Use of E-Cig and/or Vaping dev: No Substance use?: No Alcohol Use?: No Pt feels they are or have been: No Immunizations Up To Date Date of Influenza Vaccine: Nov 17, 2022 First/Initial COVID19 Vaccinat: APRIL Second COVID19 Vaccination Calvin: APRIL Tetanus Booster (TDap): Unknown Current Status Advance Directives: No Communicates: Verbally Primary Language: Yoruba Preferred Spoken Language: Yoruba Is interpretation needed?: No Sensory deficits: Vision impairment, Hearing impairment Implanted or Applied Medical D: None Past Medical History High Cholesterol, Hypertension Diabetes, Insulin dep PTSD Family Medical History No Pertinent Family Hx Review of Systems Constitutional: No chills; dizziness; No fever EENTM: blurred vision; No hearing loss, No eye pain Respiratory: No cough, No short of breath Cardiovascular: No chest pain, No palpitations Gastrointestinal: no symptoms reported Genitourinary: no symptoms reported Musculoskeletal: no symptoms reported Skin: no symptoms reported Psychiatric/Neurological: No Symptoms Reported All Other Systems Reviewed Negative Unless Noted: Yes Physical Exam Vital Signs Vital Signs - First Documented 02/20/23 02/20/23 18:30 21:19 Temp 36.7 Pulse 78 Resp 18 B/P (MAP) 167/67 (100) Pulse Ox 95 O2 Delivery Room Air Capillary Refill : Less Than 3 Seconds Height, Weight, BMI Height: '" Weight: lbs. oz. kg; 25.68 BMI Method: General Appearance: No Apparent Distress, WD/WN Eyes: Bilateral Eye Normal Inspection, Bilateral Eye PERRL, Bilateral Eye EOMI HEENT: PERRL/EOMI Neck: Normal Inspection, Non Tender, Supple Respiratory: Chest Non Tender, Lungs Clear, Normal Breath Sounds, No Accessory Muscle Use, No Respiratory Distress Cardiovascular: Regular Rate, Rhythm, No Edema, No JVD, No Murmur, Normal Peripheral Pulses Gastrointestinal: Normal Bowel Sounds, No Organomegaly, No Pulsatile Mass, Non Tender, Soft Extremity: Normal Capillary Refill, Normal Inspection, No Pedal Edema Neurologic/Psychiatric: Alert, Oriented x3, No Motor/Sensory Deficits, Normal Mood/Affect, engraver pantograph II-XII Norm as Tested Skin: Normal Color, Warm/Dry Lymphatic: No Adenopathy Assessment/Plan Assessment and Plan Assessment: PTSD DM2 HTN High cholesterol A fib with rate control Cerebellar CVA? Nausea Dizzniess Frontal WHITE CKD CBC CMP CT head showed no acute findings Plavix and Aspirin 81mg Replace Potassium MRI of brain Zofran prn Metoprolol PT/OT Insulin sliding scale Continue home meds as indicated DVT Prophylaxis:Lovenox Code status: Full Disposition: ICU to floor, 1-2 midnights pending pt status and results Admission Diagnosis Admission Status: Inpatient Order (span 2 midnights) Reason for Inpatient Admission: Cerebellar CVA Clinical Quality Measures Stroke: Date of last known well: Feb 17, 2023 LAINA MASON DO 02/22/23 0454: Allergies and Home Medications Allergies Coded Allergies: Penicillins (Verified Allergy, Unknown, 07/06/21) Patient Home Medication List Amlodipine Besylate (Amlodipine Besylate) 5 Mg Tablet, 2.5 MG PO HS, (Reported) Entered as Reported by: SEJAL PAYNE on 4/11/23 1605 Last Action: Continued Cholecalciferol (Vitamin D3) (Vitamin D3) 25 Mcg (1000 Unit) Tablet, 50 MCG PO HS, (Reported) Entered as Reported by: SEJAL PAYNE on 02/07/231551 Last Action: Continued Gabapentin (Neurontin) 300 Mg Capsule, 300 MG PO HS, (Reported) Entered as Reported by: SEJAL PAYNE on 02/07/231551 Last Action: Continued Insulin Glargine,Hum.rec.anlog (Lantus) 100 Unit/Ml Vial, 40 UNIT SQ HS, (Reported) Entered as Reported by: SEJAL PAYNE on 02/21/231604 Last Action: Held Loperamide HCl (Loperamide) 2 Mg Capsule, 2 MG PO NEEDED PRN for DIARRHEA Prescribed by: PALMA CORNELL on 02/08/23942 Last Action: Continued Magnesium Oxide (Magnesium) 400 Mg Magnesium Tablet, 800 MG PO HS, (Reported) Entered as Reported by: SEJAL PAYNE on 02/07/231551 Last Action: Converted Ondansetron (Ondansetron Odt) 8 Mg Tab.rapdis, 8 MG PO Q8H PRN for NAUSEA/VOMITING-1ST LINE, (Reported) Entered as Reported by: SEJAL PAYNE on 02/07/231551 Last Action: Converted Rosuvastatin Calcium (Rosuvastatin Calcium) 40 Mg Tablet, 40 MG PO HS, (Reported) Entered as Reported by: SEJAL PAYNE on 02/07/231551 Last Action: Converted Sertraline HCl (Sertraline HCl) 100 Mg Tablet, 200 MG PO HS, (Reported) Entered as Reported by: SEJAL PAYNE on 02/07/231551 Last Action: Continued Sodium Bicarbonate (Sodium Bicarbonate) 650 Mg Tablet, 650 MG PO HS, (Reported) Entered as Reported by: SEJAL PAYNE on 02/21/231604 Last Action: Continued Discontinued Medications Amlodipine Besylate (Amlodipine Besylate) 10 Mg Tablet, 10 MG PO DAILY Discontinued Reason: No Longer Taking Prescribed by: PALMA CORNELL on 02/08/23942 Last Action: Discontinued Sodium Bicarbonate (Sodium Bicarbonate) 650 Mg Tablet, 650 MG PO TID Discontinued Reason: Duplicate Order Prescribed by: PALMA CORNELL on 02/08/23942 Last Action: Discontinued Assessment/Plan Assessment and Plan Problems: (1) Cerebellar stroke (2) Atrial fibrillation by electrocardiogram Status: Acute (3) Stage 3b chronic kidney disease (CKD) Status: Acute (4) PTSD (post-traumatic stress disorder) Status: Chronic (5) T2DM (type 2 diabetes mellitus) Status: Acute Admission Diagnosis Admission Status: Inpatient Order (span 2 midnights) Reason for Inpatient Admission: new AF with CVA Supervisory-Addendum Brief Verification & Attestation Participated in pt care: history, MDM, physical Personally performed: exam, history, MDM, supervision of care Care discussed with: Medical Student Procedures: n/a Results interpretation: Verified all documentation Verification and Attestation of Medical Student E/M Service A medical student performed and documented this service in my presence. I reviewed and verified all information documented by the medical student and made modifications to such information, when appropriate. I personally performed the physical exam and medical decision making. Laina Mason, Feb 22, 2023,04:53 NORA PALUMBO Feb 21, 2023 10:26 LAINA MASON DO Feb 22, 2023 04:54
--- NOTE | 2023-02-21 11:06 | Diagnostic Imaging Report ---
EXAMINATION: Orbits at 1106 hours. INDICATION: Metal check for MRI. FINDINGS: A single PA view was obtained. There is no radiopaque foreign body overlying the orbits. The osseous structures are intact. The sinuses are generally clear. IMPRESSION: There is no evidence for a radiopaque foreign body overlying the orbits. Dictated by: Dictated on workstation # [id number]
--- NOTE | 2023-02-21 12:15 | Diagnostic Imaging Report ---
PROCEDURE: MR imaging of the brain without contrast. TECHNIQUE: Multiplanar, multisequence MR imaging of the brain was performed without contrast. INDICATION: Dizziness. Loss of balance. Double vision. COMPARISON: CT head without contrast 02/20/2023. FINDINGS: Moderate generalized parenchymal volume loss. Pmla-pk-tjahoblz nonspecific T2 hyperintensities in the supratentorial white matter compatible with chronic small vessel ischemic change. No restricted water diffusion. No hemosiderin deposition or evidence of intracranial hemorrhage. Normal morphology including the major midline structures, sella, posterior fossa, and cerebellopontine angle. Normal intracranial flow voids. No hydrocephalus or extra-axial fluid collections. Postoperative changes in the left globe. Paranasal sinuses and mastoids are clear. Normal bone marrow signal. IMPRESSION: Age-appropriate MRI of the brain without contrast. No acute findings. No evidence of acute infarction or hemorrhage. Dictated by: Dictated on workstation # [id number]
--- NOTE | 2023-02-21 12:17 | Diagnostic Imaging Report ---
CLINICAL INDICATION: Patient is having dizziness, balance problems, double vision since yesterday. Rule out stroke. EXAMS: MRA of the [place] performed without IV contrast using 3D [id number]. Multiple rotating 3-D MIP images were created. COMPARISON: Head CT without contrast dated 02/20/2023. MRI of the brain without contrast dated 02/21/2023. FINDINGS: Of note, the proximal aspect of the intradural vertebral arteries are not imaged. The metallic object along the left posterior aspect of the head which causes susceptibility hardware artifact on this exam. MRA of the [place] shows no significant stenosis, dissection, vascular malformation, or aneurysm seen. The visualized portions of both ICAs are patent. The anterior cerebral arteries and their branches, middle cerebral arteries and their branches are unremarkable. The bilateral customer program specialist, basilar artery, and vertebral arteries are unremarkable. Relatively codominant vertebral arteries are seen. Left PICA and right AICA PICA are noted and patent. IMPRESSION: MRI of the [place] shows no large vessel occlusion, significant stenosis, vascular malformation, or aneurysm. IMPRESSION: Unremarkable MRA of the [place] with no evidence of significant stenosis, dissection, vascular malformation, or aneurysm. Dictated by: Dictated on workstation # [id number]
--- NOTE | 2023-02-21 12:59 | Diagnostic Imaging Report ---
PROCEDURE: US carotid duplex, bilateral. INDICATION: Dizziness, loss of balance, double vision. History of hypertension and diabetes. TECHNIQUE: Multiple real-time grayscale images were obtained over the carotid arteries in various projections bilaterally. Additional spectral analysis and color Doppler and Duplex images were also obtained. CORRELATION: None FINDINGS: Color images demonstrate mild plaque at the carotid bulbs and proximal internal carotid arteries. Right carotid circulation: The right common carotid artery is normal in course and caliber. The right internal carotid artery is patent. No hemodynamically significant stenosis is present at this time. Right external carotid artery is patent. Left carotid circulation: The left common carotid artery is normal in course and caliber. The left internal carotid artery is patent. No hemodynamically significant stenosis is present at this time. Left external carotid artery is patent. Antegrade flow in the bilateral vertebral arteries. DOPPLER (peak systolic velocity M/S Right Left CCA 1.20 1.10 ICA Proximal 0.91 0.73 ICA Mid 0.86 0.83 ICA Distal 0.90 1.07 RATIO 0.76 0.97 ECA 1.26 1.38 VERT 0.58 1.23 IMPRESSION: 1. Mild atherosclerosis involving bilateral carotid bulbs and proximal internal carotid arteries. 2. No hemodynamically significant stenosis of the internal carotid arteries at this time. Parameters based on the consensus panel Mcfarlane-Scale and Doppler ultrasound criteria published September 2003, Radiology, Volume 229. Dictated by: Dictated on workstation # [id number]
--- NOTE | 2023-02-21 13:44 | Occupational Therapy Eval ---
OT Evaluation-General/PLF Medical Diagnosis Admission Date Feb 20, 2023 at 22:39 Medical Diagnosis: CVA/TIA Onset Date: Feb 20, 2023 Therapy Diagnosis Therapy Diagnosis: WEAKNESS/TREMORS Precautions Precautions/Isolations: Standard Precautions Weight Bear Status Weight Bearing Restriction: Weight Bearing/Tolerated Referral Referral Reason: Evaluation/Treatment Medical History Pertinent Medical History: Arthritis, DM, HTN Current History Mr. Blackmon is a 77 yo male with pmhx significant for DM2, HTN, high cholesterol admitted for possible cerebellar stroke with associated dizziness, imbalance, double vision, and frontal WHITE x 3 days and Afib with rate control in ED. Today he reports he is feeling better. Reports he no longer has double vision, only dizziness and nausea when moving his head. Denies any vomiting, CP, or SOB. NO new or worsening sx Reviewed History: Yes Social History Home: [facility] Current Living Status: Alone ( LAST YEAR) Entry Into Home: Stairs With Railing ADL-Prior Level of Function SCALE: Activities may be completed with or without assistive devices. 3-Nvbnswacwj-bgmivqy completes the activity by him/herself with no assistance from a helper. 5-Set-up or Clean-up Assistance-helper sets up or cleans up; patient completes activity. [place] assists only prior to or following the activity. 4-Supervision or Touching Assistance-helper provides verbal cues and/or touching/steadying and/or contact guard assistance as patient completes activity. Assistance may be provided throughout the activity or intermittently. 3-Partial/Moderate Assistance-helper does LESS THAN HALF the effort. [place] lifts, holds or supports trunk or limbs, but provides less than half the effort. 2-Substantial/Maximal Assistance-helper does MORE THAN HALF the effort. [place] lifts or holds trunk or limbs and provides more than half the effort. 4-Vtyzntrdi-wemcwr does ALL the effort. Patient does none of the effort to complete the activity. Or, the assistance of 2 or more helpers is required for the patient to complete the activity. If activity was not attempted, code reason: 7-Patient Refused. 9-Not Applicable-not attempted and the patient did not perform the activity before the current illness, exacerbation or injury. 10-Not Attempted due to Environmental Limitations-(lack of equipment, weather restraints, etc.). 88-Not Attempted due to Medical Conditions or Safety Concerns. Self Care: Independent Functional Cognition: Independent REPORTS BLURRED VISION WHEN LOOKING AT A DISTANCE Drive Self: Yes OT Current Status Subjective AGREEABLE TO OT Mental Status/Objective Patient Orientation: Person, Place, Time, Situation Attachments: Telemetry Current Glasses/Contacts: Yes Hand Dominance: Right Upper Extremity ROM BUE ROM WFL, . Upper Extremity Coordination BUE COORDINATION WFL, HOWEVER PATIENT FREQUENTLY POSITIONED SELF CLOSE PROXIMITY TO SURFACES AND DEMONSTRATED TREMORS TO BUE WHILE AMBULATING Upper Extremity Strength -4/5 GROSSLY ADL-Treatment Eating (QC): 6 Oral Hygiene (QC): 6 Shower/Bathe Self (QC): 88 Upper Body Dressing (QC): 5 Lower Body Dressing (QC): 5 On/Off Footwear (QC): 5 Toileting Hygiene (QC): 5 KNEE BRACE D/T NEUROPATHY REPORTED BY PATIENT Education OT Patient Education: Correct positioning, Modified ADL techniques, Progress toward Goal/Update tx plan, Purpose of tx/functional activities, Reviewed precautions, Rehab process, Safety issues, Transfer techniques, Use of adapted equipment (HAS SPC AND FWW AT HOME, DOES NOT USE THEM) Teaching Recipient: Patient Teaching Methods: Demonstration, Discussion Response to Teaching: Verbalize Understanding, Reinforcement Needed OT Alf Goals Senior Merchandiser Goals Oral Hygiene (QC): 6 Toileting Hygiene (QC): 6 Shower/Bathe Self (QC): 6 Upper Body Dressing (QC): 6 Lower Body Dressing (QC): 6 On/Off Footwear (QC): 6 1=Demonstrate adherence to instructed precautions during ADL tasks. 2=Patient will verbalize/demonstrate understanding of assistive devices/modifications for ADL. 3=Patient will improve strength/tolerance for activity to enable patient to perform ADL's. OT Education/Plan Problem List/Assessment Assessment: Decreased Activ Tolerance, Impaired Self-Care Skills Discharge Recommendations Plan/Recommendations: Continue POC Treatment Plan/Plan of Care Treatment,Training & Education: Yes Patient would benefit from OT for education, treatment and training to promote independence in ADL's, mobility, safety and/or upper extremity function for ADL's. Plan of Care: ADL Retraining, Functional Mobility, Group Exercise/Act as Ind, UE Funct Exercise/Act Treatment Duration: Feb 25, 2023 Frequency: 3 times per week (3-5 TIMES PER WEEK) Estimated Hrs Per Day: .25 hour per day Agreement: Yes Rehab Potential: Guarded RETURNED TO CHAIR W/ WARM BLANKET, ALL NEEDS MET Time Start Time: 13:00 Stop Time: 13:20 DATE: Feb 21, 2023 Total Time Billed (hr/min): 20 Billed Treatment Time EVM 20 MIN DANITA BENOIT OT Feb 21, 2023 13:44
--- NOTE | 2023-02-21 14:26 | Physical Therapy Evaluation ---
PT Evaluation-General Medical Diagnosis Admission Date Feb 20, 2023 at 22:39 Medical Diagnosis: CVA/TIA Onset Date: Feb 20, 2023 Therapy Diagnosis Therapy Diagnosis: debility/weakness Precautions Precautions/Isolations: Standard Precautions Referral Physician: Charlotte Reason for Referral: Evaluation/Treatment Medical History Pertinent Medical History: Arthritis, DM, HTN Current History ER secondary to dizziness, difficulty ambulation and double vision x 3 days Reviewed History: Yes Social History Home: [facility] Current Living Status: Alone ( LAST YEAR) Entry Into Home: Stairs With Railing Prior Prior Level of Function SCALE: Activities may be completed with or without assistive devices. 1-Riezoanped-jbggmcg completes the activity by him/herself with no assistance from a helper. 5-Set-up or Clean-up Assistance-helper sets up or cleans up; patient completes activity. [place] assists only prior to or following the activity. 4-Supervision or Touching Assistance-helper provides verbal cues and/or touching/steadying and/or contact guard assistance as patient completes activity. Assistance may be provided throughout the activity or intermittently. 3-Partial/Moderate Assistance-helper does LESS THAN HALF the effort. [place] lifts, holds or supports trunk or limbs, but provides less than half the effort. 2-Substantial/Maximal Assistance-helper does MORE THAN HALF the effort. [place] lifts or holds trunk or limbs and provides more than half the effort. 7-Unyghroqu-bpfjmf does ALL the effort. Patient does none of the effort to complete the activity. Or, the assistance of 2 or more helpers is required for the patient to complete the activity. If activity was not attempted, code reason: 7-Patient Refused. 9-Not Applicable-not attempted and the patient did not perform the activity before the current illness, exacerbation or injury. 10-Not Attempted due to Environmental Limitations-(lack of equipment, weather restraints, etc.). 88-Not Attempted due to Medical Conditions or Safety Concerns. Bed Mobility: 6 Transfers (B,C,W/C): 6 Gait: 6 Stairs: 6 Indoor Mobility (Ambulation): Independent Stairs: Independent Prior Devices Use: None PT Evaluation-Current Subjective Patient reports he has to look at the floor when he is upright and not straight ahead due to increase in dizziness. Objective Patient Orientation: Normal For Age ROM/Strength ROM Lower Extremities bilateral LE WFL Strength Lower Extremities 4/5 grossly bilateral LE all planes Sensory Hand Dominance: Right Transfers Roll Left to Right (QC): 6 Sit to Lying (QC): 6 Lying to Sitting/Side of Bed(Q: 6 Sit to Stand (QC): 4 Chair/Mse-me-Dhwfv Xfer(QC): 4 Gait Mode of Locomotion: Walk Anticipated Mode of Locomotion: Walk Walk 10 feet (QC): 4 Walk 50 ft with 2 Turns(QC): 4 Walk 150 ft (QC): 4 Distance: 500' Gait Assistive Device: FWW Comments/Gait Description eyes looking at the floor/slightly ataxic with self correct Balance Sitting Static: Normal Sitting Dynamic: Normal Standing Static: Fair Standing Dynamic: Fair Assessment/Needs Patient will benefit from short term skilled PT to address functional strength and mobility to improve current LOF to safely return to home at maximum LOF. Rehab Potential: Fair PT Short Term Goals Short Term Goals Time Frame: Feb 25, 2023 Roll Left & Right: 6 Sit to lyin Lying to sitting on side of be: 6 Sit to stand: 6 Chair/abw-jp-ycdsg transfer: 6 Toilet transfer: 6 Walk 10 feet: 6 Walk 50 feet with two turns: 6 Walk 150 feet: 6 PT Plan Problem List Problem List: Safety, Balance, Gait Treatment/Plan Treatment Plan: Continue Plan of Care Treatment Plan: Education, Functional Activity Karon, Functional Strength, Gait, Safety, Therapeutic Exercise, Transfers Treatment Duration: Feb 25, 2023 Frequency: 5 times per week Estimated Hrs Per Day: .25 hour per day Patient and/or Family Agrees t: Yes Time Time In: 1250 Time Out: 1306 DATE: Feb 21, 2023 Total Billed Treatment Time: 16 Total Billed Treatment 1 visit [facility] 16 min OSCAR BENITEZ PT Feb 21, 2023 14:26
[2023-02-21] MEDS ORDERED: INSU100V6 SQ (16:05)
[2023-02-21] MEDS ORDERED: AMLO-250 PO (16:05)
[2023-02-21] MEDS ORDERED: NF-SODBICA PO (16:05)
[2023-02-21 16:55] VITALS: BP 146/67
[2023-02-21 19:31] VITALS: BP 153/69
[2023-02-21] MEDS ORDERED: LOPERAMIDE 2 MG (IMODIUM) TABLET PO PRN (20:15)
[2023-02-21] MEDS ORDERED: SERTRALINE 100 MG (ZOLOFT) TAB PO SCH (21:00)
[2023-02-21] MEDS ORDERED: amLODIPine 5 MG (NORVASC) TAB PO SCH (21:00)
[2023-02-21] MEDS ORDERED: SODIUM BICARBONATE 650 MG TABLET PO SCH (21:00)
[2023-02-21] MEDS ORDERED: VITAMIN D3 25 MCG (1,000 UNITS) TABLET PO SCH (21:00)
[2023-02-21] MEDS ORDERED: GABAPENTIN 300 MG (NEURONTIN) CAP PO SCH (21:00)
[2023-02-21] MEDS ORDERED: ONDANSETRON 4 MG (ZOFRAN) ORAL DISSOLVE TAB PO PRN (21:30)
[2023-02-21 23:22] VITALS: BP 174/84
[2023-02-22 04:59] VITALS: BP 143/68
[2023-02-22 05:46] LABS: BASOPHILS % (AUTO) 1 % (0-10); EOSINOPHILS # (AUTO) 0.2 10^3/uL (0.0-0.3); EOSINOPHILS % (AUTO) 3 % (0-10); HEMATOCRIT 34 % (40-54); HEMOGLOBIN 11.4 g/dL (13.3-17.7); LYMPHOCYTES # (AUTO) 3.4 10^3/uL (1.0-4.0); LYMPHOCYTES % (AUTO) 49 % (12-44); MEAN CORPUSCULAR HEMOGLOBIN 31 pg (25-34); MEAN CORPUSCULAR HGB CONC 34 g/dL (32-36); MEAN CORPUSCULAR VOLUME 92 fL (80-99); MEAN PLATELET VOLUME 9.7 fL (9.0-12.2); MONOCYTES # (AUTO) 0.6 10^3/uL (0.0-1.0); MONOCYTES % (AUTO) 8 % (0-12); NEUTROPHILS # (AUTO) 2.7 10^3/uL (1.8-7.8); NEUTROPHILS % (AUTO) 40 % (42-75); PLATELET COUNT 149 10^3/uL (130-400); WHITE BLOOD COUNT 6.9 10^3/uL (4.3-11.0)
[2023-02-22 05:56] LABS: ALBUMIN 3.2 GM/DL (3.2-4.5); BILIRUBIN,TOTAL 0.6 MG/DL (0.1-1.0); CALCIUM 8.7 MG/DL (8.5-10.1); CREATININE SERUM 1.69 MG/DL (0.60-1.30); MAGNESIUM 1.8 MG/DL (1.6-2.4); POTASSIUM 4.2 MMOL/L (3.6-5.0); TOTAL PROTEIN 6.4 GM/DL (6.4-8.2)
[2023-02-22] MEDS: inSUlin ASPART (NovoLOG) 1 UNIT/0.01 ML (CHARGE PER UNIT) SC SCH ×2 (06:07→11:21)
[2023-02-22 07:11] VITALS: BP 155/71
[2023-02-22] MEDS: SENNOSIDES 8.6 MG (SENOKOT) TAB PO SCH (09:04)
[2023-02-22] MEDS: CLOPIDOGREL 75 MG (PLAVIX) TABLET PO SCH (09:04)
[2023-02-22] MEDS: ASPIRIN E.C. 81 MG (ECOTRIN) TAB PO SCH (09:04)
[2023-02-22] MEDS: DOCUSATE SODIUM 100 MG (COLACE) CAP PO SCH (09:04)
--- NOTE | 2023-02-22 09:29 | Cardiology Progress Note ---
Subjective Date Seen by Provider: Feb 22, 2023 Time Seen by Provider: 08:20 Subjective/Events-last exam Patient is sitting up in chair, denies any chest pain or dyspnea. Reports still having dizziness, but overall improving Objective-Cardiology Exam Last Set of Vital Signs Vital Signs 02/22/23 14:00 Temp 36.7 Pulse 61 Resp 18 B/P (MAP) 177/77 Pulse Ox 94 O2 Delivery Room Air I&O Intake and Output 02/22/23 00:00 Intake Total 2565 ml Output Total 1375 ml Balance 1190 ml Intake Oral 2100 ml IV Total 465 ml Output Urine Total 1375 ml # Voids 4 # Bowel Movements 2 General: Alert, Oriented X3 HEENT: Atraumatic, PERRLA Lungs: Clear to Auscultation, Normal Air Movement Heart: Regular Rate, Normal S1, Normal S2 Abdomen: Normal Bowel Sounds, Soft Skin: No Rashes, No Significant Lesion Neuro: Normal Speech Psych/Mental Status: Mental Status NL, Mood NL Results Lab Laboratory Tests 02/22/23 05:02 A/P-Cardiology Admission Diagnosis Acute CVA Chest pain Hypertension Hyperlipidemia Diabetes mellitus Assessment/Plan Acute CVA versus TIA Double vision with frontal headache and unsteady gait Reporting improvement CT of the head did not show any acute abnormality MRI/MRA negative for acute CVA. Maintained on ASA and Plavix. 2D Echo done 02/21/23 showing normal LV, EF 65-70%. Left atrium normal in size. Mild to moderate TR. PA 40-45mmHg Chest pain, nonspecific etiology Reporting occasional left-sided chest pain, improved Multiple risk factors for coronary artery disease Troponin initially was minimally elevated repeat troponin was normal. Will plan for stress test as outpatient. Abnormal EKG with right bundle branch block, multiple episodes of paroxysmal atrial tachycardia. No documented atrial fibrillation Started on low dose beta huma. Hypertension, controlled. Continue to monitor. Hyperlipidemia, monitor lipids Has been on rosuvastatin Diabetes mellitus, followed and managed by primary care physician Peripheral neuropathy. Maintained on gabapentin Patient was seen and evaluated with Ana, examination performed, management plan was discussed, agree with the current scribed note, I made few changes to the note using Italic font Patient was seen at bedside, still having some dizziness We discussed adding scopolamine CT and MRI results were discussed Continue to monitor blood pressure ANA ORLANDO Feb 22, 2023 09:28 BEVERLY COLE MD Feb 22, 2023 16:52
--- NOTE | 2023-02-22 09:31 | Progress Note ---
JUDITH SALINAS 02/22/23 0931: Progress Note Hospital Course This patient is a 77 year old male who was admitted to [facility] from 02/21-/02/22 for concern of CVA. The patient was having 3 days of dizziness, "double vision", and headache prior to arriving to the ED 02/20 in the PM. He did have elevated BP with systolic 167 and reported 200 at home leading up to his visit. He was not given TPA due to it being >24 hrs since onset of symptoms. During his stay he had several imaging studies including head CT, MRI w/out contrast, MRA, and carotid artery US. All imaging was unremarkable for acute CVA or stenosis contributing to symptoms.During his stay he was seen by cardiology for concerns of Afib which was deemed to be bouts of paroxysmal atrial tachycardia. He was started on plavix and ASA for the possible CVA and metoprolol for rate control. His condition improved quickly during his stay. At time of discharge patient's condition was significantly improved with minimal LH. He does have some residual weakness in his right leg secondary to diabetic neuropathy and sciatica that has been ongoing prior to recent event. LAINA MASON DO 02/23/23 0519: Supervisory-Addendum Brief Verification & Attestation Participated in pt care: history, MDM, physical Personally performed: exam, history, MDM, supervision of care Care discussed with: Medical Student Procedures: n/a Results interpretation: Verified all documentation Verification and Attestation of Medical Student E/M Service A medical student performed and documented this service in my presence. I rev iewed and verified all information documented by the medical student and made modifications to such information, when appropriate. I personally performed the physical exam and medical decision making. Laina Mason, Feb 23, 2023,05:19 JUDITH SALINAS Feb 22, 2023 09:31 LAINA MASON DO Feb 23, 2023 05:19
[2023-02-22] MEDS: ENOXAPARIN 80 MG/0.8 ML (LOVENOX) SYR SC SCH (11:21)
[2023-02-22 11:31] VITALS: BP 177/77
--- NOTE | 2023-02-22 12:06 | Physical Therapy Daily Note ---
PT Daily Note-Current Subjective Patient lying supine in bed upon PT arrival, agreeable to treatment. Rates pain at 0/10 currently. Pain Section J - Health Conditions 1. Rarely or not at all 2. Occasionally 3. Frequently 4. Almost constantly 8. Unable to answer Pain Effect on Sleep: 1 Pain Interference with Therapy: 1 Pain Interference w/Day-to-Day: 1 Mental Status Patient Orientation: Person, Place, Time, Situation Transfers SCALE: Activities may be completed with or without assistive devices. 0-Nkooljfhkx-zngjowz completes the activity by him/herself with no assistance from a helper. 5-Set-up or Clean-up Assistance-helper sets up or cleans up; patient completes activity. [place] assists only prior to or following the activity. 4-Supervision or Touching Assistance-helper provides verbal cues and/or touching/steadying and/or contact guard assistance as patient completes activity. Assistance may be provided throughout the activity or intermittently. 3-Partial/Moderate Assistance-helper does LESS THAN HALF the effort. [place] lifts, holds or supports trunk or limbs, but provides less than half the effort. 2-Substantial/Maximal Assistance-helper does MORE THAN HALF the effort. [place] lifts or holds trunk or limbs and provides more than half the effort. 6-Sosmggxbg-psraoe does ALL the effort. Patient does none of the effort to complete the activity. Or, the assistance of 2 or more helpers is required for the patient to complete the activity. If activity was not attempted, code reason: 7-Patient Refused. 9-Not Applicable-not attempted and the patient did not perform the activity before the current illness, exacerbation or injury. 10-Not Attempted due to Environmental Limitations-(lack of equipment, weather restraints, etc.). 88-Not Attempted due to Medical Conditions or Safety Concerns. Roll Left & Right (QC): 6 Sit to Lying (QC): 6 Lying to Sitting/Side of Bed(Q: 6 Sit to Stand (QC): 4 Chair/Hrp-ph-Julum Xfer(QC): 4 Toilet Transfer (QC): 4 Gait Training Does the Patient Walk?: Yes Distance: 600 feet Walk 10 feet (QC): 6 Walk 50 ft with 2 Turns(QC): 6 Walk 150 ft (QC): 4 Assessment Current Status: Good Progress Patient tolerated treatment well. Demonstrates SBA to [place] with all transfers and bed mobility. Patient ambulates 600 feet with FWW, with SBA and verbal cues for path, progression and safety. Patient in bed post treatment with all needs met, nursing in the room and call light in reach. PT Short Term Goals Short Term Goals Time Frame: Feb 25, 2023 Roll Left & Right: 6 Sit to lyin Lying to sitting on side of be: 6 Sit to stand: 6 Chair/rzs-qj-veexv transfer: 6 Toilet transfer: 6 Walk 10 feet: 6 Walk 50 feet with two turns: 6 Walk 150 feet: 6 PT Plan Treatment/Plan Treatment Plan: Continue Plan of Care Treatment Plan: Education, Functional Activity Karon, Functional Strength, Gait, Safety, Therapeutic Exercise, Transfers Treatment Duration: Feb 25, 2023 Frequency: 5 times per week Estimated Hrs Per Day: .25 hour per day Patient and/or Family Agrees t: Yes Safety Risks/Education Patient Education: Gait Training, Transfer Techniques Teaching Recipient: Patient Teaching Methods: Demonstration, Discussion Response to Teaching: Verbalize Understanding, Return Demonstration Time Time In: 1104 Time Out: 1122 DATE: Feb 22, 2023 Total Billed Treatment Time: 18 Total Billed Treatment Visit, Gait ANGELICA STROUD PT Feb 22, 2023 12:06
[2023-02-22] MEDS ORDERED: AMLO5TAB4 PO (12:15)
[2023-02-22] MEDS ORDERED: CLOP75TA28 PO (12:15)
[2023-02-22] MEDS ORDERED: HYDR-3923 PO (12:15)
[2023-02-22] MEDS ORDERED: ASPI-1238 PO (12:15)
[2023-02-22] MEDS ORDERED: MTP25TSR PO (12:15)
[2023-02-22 14:00] VITALS: BP 177/77
--- NOTE | 2023-02-22 16:09 | Discharge Summary ---
Diagnosis/Chief Complaint Date of Admission Feb 20, 2023 at 22:39 Date of Discharge Feb 22, 2023 at 15:32 Discharge Diagnosis HTN Urgency TIA PAT no evidence of AF Discharge Summary Discharge Physical Examination Allergies: Coded Allergies: Penicillins (Verified Allergy, Unknown, 07/06/21) Vitals & I&Os Vital Signs Date Time Temp Pulse Resp B/P (MAP) Pulse Ox O2 Delivery O2 Flow Rate FiO2 02/22/23 14:00 36.7 61 18 177/77 94 Room Air General Appearance: Alert, Oriented X3, Cooperative Respiratory: Clear to Auscultation Cardiovascular: Regular Rate Psych/Mental Status: Mental Status NL Hospital Course Was the Problem List Reviewed?: Yes Hospital Course This patient is a 77 year old male who was admitted to [facility] from 02/21-/02/22 for concern of CVA. The patient was having 3 days of dizziness, "double vision", and headache prior to arriving to the ED 02/20 in the PM. He did have elevated BP with systolic 167 and reported 200 at home leading up to his visit. He was not given TPA due to it being >24 hrs since onset of symptoms. During his stay he had several imaging studies including head CT, MRI w/out contrast, MRA, and carotid artery US. All imaging was unremarkable for acute CVA or stenosis contributing to symptoms.During his stay he was seen by cardiology for concerns of Afib which was deemed to be bouts of paroxysmal atrial tachycardia. He was started on plavix and ASA for the possible CVA and metoprolol for rate control. His condition improved quickly during his stay. At time of discharge patient's condition was significantly improved with minimal LH. He does have some residual weakness in his right leg secondary to diabetic neuropathy and sciatica that has been ongoing prior to recent event. Labs (last 24 hrs) Laboratory Tests 02/20/23 18:42: White Blood Count 6.9, Red Blood Count 3.86L, Hemoglobin 11.8L, Hematocrit 36L, Mean Corpuscular Volume 93, Mean Corpuscular Hemoglobin 31, Mean Corpuscular Hemoglobin Concent 33, Red Cell Distribution Width 13.6, Platelet Count 180, Mean Platelet Volume 9.6, Immature Granulocyte % (Auto) 0, Neutrophils (%) (Auto) 56, Lymphocytes (%) (Auto) 35, Monocytes (%) (Auto) 8, Eosinophils (%) (Auto) 1, Basophils (%) (Auto) 1, Neutrophils # (Auto) 3.9, Lymphocytes # (Auto) 2.4, Monocytes # (Auto) 0.5, Eosinophils # (Auto) 0.1, Basophils # (Auto) 0.0, Immature Granulocyte # (Auto) 0.0, Prothrombin Time 14.9H, INR Comment 1.1, Activated Partial Thromboplast Time 29, D-Dimer 0.30, Sodium Level 142, Potassium Level 3.3L, Chloride Level 105, Carbon Dioxide Level 25, Anion Gap 12, Blood Urea Nitrogen 24H, Creatinine 2.03H, Estimat Glomerular Filtration Rate 33, BUN/Creatinine Ratio 12, Glucose Level 103, Calcium Level 9.2, Corrected Calcium 9.4, Total Bilirubin 1.0, Aspartate Amino Transf (AST/SGOT) 35H, Alanine Aminotransferase (ALT/SGPT) 41, Alkaline Phosphatase 69, Troponin I 0.031H, Total Protein 7.0, Albumin 3.7 02/20/23 19:47: Glucometer 99 02/20/23 19:50: Urine Color YELLOW, Urine Clarity CLEAR, Urine pH 7.0, Urine Specific Irving 1.010L, Urine Protein 1+H, Urine Glucose (UA) NEGATIVE, Urine Ketones TRACEH, Urine Nitrite NEGATIVE, Urine Bilirubin NEGATIVE, Urine Urobilinogen 4.0, Urine Leukocyte Esterase NEGATIVE, Urine RBC (Auto) NEGATIVE, Urine RBC NONE, Urine WBC 2-5, Urine Squamous Epithelial Cells 0-2, Urine Crystals NONE, Urine Bacteria TRACE, Urine Casts PRESENT, Urine Hyaline Casts 5-10H, Urine Mucus NEGATIVE, Urine Culture Indicated NO 02/21/23 01:42: Glucometer 184H 02/21/23 04:33: White Blood Count 7.2, Red Blood Count 3.65L, Hemoglobin 11.3L, Hematocrit 34L, Mean Corpuscular Volume 93, Mean Corpuscular Hemoglobin 31, Mean Corpuscular Hemoglobin Concent 33, Red Cell Distribution Width 13.5, Platelet Count 152, Mean Platelet Volume 9.5, Immature Granulocyte % (Auto) 0, Neutrophils (%) (Auto) 41L, Lymphocytes (%) (Auto) 46H, Monocytes (%) (Auto) 10, Eosinophils (%) (Auto) 3, Basophils (%) (Auto) 1, Neutrophils # (Auto) 3.0, Lymphocytes # (Auto) 3.3, Monocytes # (Auto) 0.7, Eosinophils # (Auto) 0.2, Basophils # (Auto) 0.0, Immature Granulocyte # (Auto) 0.0, Sodium Level 141, Potassium Level 3.8, Chloride Level 107, Carbon Dioxide Level 25, Anion Gap 9, Blood Urea Nitrogen 23H, Creatinine 1.78H, Estimat Glomerular Filtration Rate 39, BUN/Creatinine Ratio 13, Glucose Level 118H, Calcium Level 8.7, Corrected Calcium 9.3, Phosphorus Level 2.8, Magnesium Level 1.5L, Total Bilirubin 0.7, Aspartate Amino Transf (AST/SGOT) 35H, Alanine Aminotransferase (ALT/SGPT) 36, Alkaline P hosphatase 69, Troponin I < 0.028, Total Protein 6.3L, Albumin 3.2, Triglycerides Level 97, Cholesterol Level 118, LDL Cholesterol Direct 52, VLDL Cholesterol 19, HDL Cholesterol 42 02/21/23 20:37: Glucometer 217H 02/22/23 05:02: White Blood Count 6.9, Red Blood Count 3.67L, Hemoglobin 11.4L, Hematocrit 34L, Mean Corpuscular Volume 92, Mean Corpuscular Hemoglobin 31, Mean Corpuscular Hemoglobin Concent 34, Red Cell Distribution Width 13.2, Platelet Count 149, Mean Platelet Volume 9.7, Immature Granulocyte % (Auto) 0, Neutrophils (%) (Auto) 40L, Lymphocytes (%) (Auto) 49H, Monocytes (%) (Auto) 8, Eosinophils (%) (Auto) 3, Basophils (%) (Auto) 1, Neutrophils # (Auto) 2.7, Lymphocytes # (Auto) 3.4, Monocytes # (Auto) 0.6, Eosinophils # (Auto) 0.2, Basophils # (Auto) 0.0, Immature Granulocyte # (Auto) 0.0, Sodium Level 140, Potassium Level 4.2, Chloride Level 108H, Carbon Dioxide Level 20L, Anion Gap 12, Blood Urea Nitrogen 24H, Creatinine 1.69H, Estimat Glomerular Filtration Rate 41, BUN/Creatinine Ratio 14, Glucose Level 118H, Calcium Level 8.7, Corrected Calcium 9.3, Magnesium Level 1.8, Total Bilirubin 0.6, Aspartate Amino Transf (AST/SGOT) 35H, Alanine Aminotransferase (ALT/SGPT) 37, Alkaline Phosphatase 82, Total Protein 6.4, Albumin 3.2 02/22/23 10:43: Glucometer 206H Microbiology 02/20/23 MRSA Screen - Final, Complete MRSA not isolated Pending Labs Microbiology Date/Time Source Procedure Growth Status 02/20/23 22:57 Nasal MRSA Screen - Final MRSA not isolated Complete Laboratory Tests 02/20/23 18:42: White Blood Count 6.9, Red Blood Count 3.86, Hemoglobin 11.8, Hematocrit 36, Mean Corpuscular Volume 93, Mean Corpuscular Hemoglobin 31, Mean Corpuscular Hemoglobin Concent 33, Red Cell Distribution Width 13.6, Platelet Count 180, Mean Platelet Volume 9.6, Immature Granulocyte % (Auto) 0, Neutrophils (%) (Auto) 56, Lymphocytes (%) (Auto) 35, Monocytes (%) (Auto) 8, Eosinophils (%) (Auto) 1, Basophils (%) (Auto) 1, Neutrophils # (Auto) 3.9, Lymphocytes # (Auto) 2.4, Monocytes # (Auto) 0.5, Eosinophils # (Auto) 0.1, Basophils # (Auto) 0.0, Immature Granulocyte # (Auto) 0.0, Prothrombin Time 14.9, INR Comment 1.1, Activated Partial Thromboplast Time 29, D-Dimer 0.30, Sodium Level 142, Potassium Level 3.3, Chloride Level 105, Carbon Dioxide Level 25, Anion Gap 12, Blood Urea Nitrogen 24, Creatinine 2.03, Estimat Glomerular Filtration Rate 33, BUN/Creatinine Ratio 12, Glucose Level 103, Calcium Level 9.2, Corrected Calcium 9.4, Total Bilirubin 1.0, Aspartate Amino Transf (AST/SGOT) 35, Alanine Aminotransferase (ALT/SGPT) 41, Alkaline Phosphatase 69, Troponin I 0.031, Total Protein 7.0, Albumin 3.7 02/20/23 19:47: Glucometer 99 02/20/23 19:50: Urine Color YELLOW, Urine Clarity CLEAR, Urine pH 7.0, Urine Specific Irving 1.010, Urine Protein 1+, Urine Glucose (UA) NEGATIVE, Urine Ketones TRACE, Urine Nitrite NEGATIVE, Urine Bilirubin NEGATIVE, Urine Urobilinogen 4.0, Urine Leukocyte Esterase NEGATIVE, Urine RBC (Auto) NEGATIVE, Urine RBC NONE, Urine WBC 2-5, Urine Squamous Epithelial Cells 0-2, Urine Crystals NONE, Urine Bacteria TRACE, Urine Casts PRESENT, Urine Hyaline Casts 5-10, Urine Mucus NEG ATIVE, Urine Culture Indicated NO 02/21/23 01:42: Glucometer 184 02/21/23 04:33: White Blood Count 7.2, Red Blood Count 3.65, Hemoglobin 11.3, Hematocrit 34, Mean Corpuscular Volume 93, Mean Corpuscular Hemoglobin 31, Mean Corpuscular Hemoglobin Concent 33, Red Cell Distribution Width 13.5, Platelet Count 152, Mean Platelet Volume 9.5, Immature Granulocyte % (Auto) 0, Neutrophils (%) (Auto) 41, Lymphocytes (%) (Auto) 46, Monocytes (%) (Auto) 10, Eosinophils (%) (Auto) 3, Basophils (%) (Auto) 1, Neutrophils # (Auto) 3.0, Lymphocytes # (Auto) 3.3, Monocytes # (Auto) 0.7, Eosinophils # (Auto) 0.2, Basophils # (Auto) 0.0, Immature Granulocyte # (Auto) 0.0, Sodium Level 141, Potassium Level 3.8, Chloride Level 107, Carbon Dioxide Level 25, Anion Gap 9, Blood Urea Nitrogen 23, Creatinine 1.78, Estimat Glomerular Filtration Rate 39, BUN/Creatinine Ratio 13, Glucose Level 118, Calcium Level 8.7, Corrected Calcium 9.3, Phosphorus Level 2.8, Magnesium Level 1.5, Total Bilirubin 0.7, Aspartate Amino Transf (AST/SGOT) 35, Alanine Aminotransferase (ALT/SGPT) 36, Alkaline Phosphatase 69, Troponin I < 0.028, Total Protein 6.3, Albumin 3.2, Triglycerides Level 97, Cholesterol Level 118, LDL Cholesterol Direct 52, VLDL Cholesterol 19, HDL Cholesterol 42 02/21/23 20:37: Glucometer 217 02/22/23 05:02: White Blood Count 6.9, Red Blood Count 3.67, Hemoglobin 11.4, Hematocrit 34, Mean Corpuscular Volume 92, Mean Corpuscular Hemoglobin 31, Mean Corpuscular Hemoglobin Concent 34, Red Cell Distribution Width 13.2, Platelet Count 149, Mean Platelet Volume 9.7, Immature Granulocyte % (Auto) 0, Neutrophils (%) (Auto) 40, Lymphocytes (%) (Auto) 49, Monocytes (%) (Auto) 8, Eosinophils (%) (Auto) 3, Basophils (%) (Auto) 1, Neutrophils # (Auto) 2.7, Lymphocytes # (Auto) 3.4, Monocytes # (Auto) 0.6, Eosinophils # (Auto) 0.2, Basophils # (Auto) 0.0, Immature Granulocyte # (Auto) 0.0, Sodium Level 140, Potassium Level 4.2, Chloride Level 108, Carbon Dioxide Level 20, Anion Gap 12, Blood Urea Nitrogen 24, Creatinine 1.69, Estimat Glomerular Filtration Rate 41, BUN/Creatinine Ratio 14, Glucose Level 118, Calcium Level 8.7, Corrected Calcium 9.3, Magnesium Level 1.8, Total Bilirubin 0.6, Aspartate Amino Transf (AST/SGOT) 35, Alanine Aminotransferase (ALT/SGPT) 37, Alkaline Phosphatase 82, Total Protein 6.4, Albumin 3.2 02/22/23 10:43: Glucometer 206 Discharge Home Medications: Active Scripts Active Norvasc (Amlodipine Besylate) 5 Mg Tablet 5 Mg PO DAILY Hydralazine HCl 25 Mg Tablet 25 Mg PO TID Aspirin EC (Aspirin) 81 Mg Tablet.dr 81 Mg PO DAILY Metoprolol Succinate 25 Mg Tab.er.24h 25 Mg PO DAILY Clopidogrel (Clopidogrel Bisulfate) 75 Mg Tablet 75 Mg PO DAILY Loperamide (Loperamide HCl) 2 Mg Capsule 2 Mg PO NEEDED PRN 30 Days Reported Lantus (Insulin Glargine,Hum.rec.anlog) 100 Unit/Ml Vial 40 Unit SQ HS Sodium Bicarbonate 650 Mg Tablet 650 Mg PO HS Magnesium (Magnesium Oxide) 400 Mg Magnesium Tablet 800 Mg PO HS TAKES 2 (400MG) TABS Vitamin D3 (Cholecalciferol (Vitamin D3)) 25 Mcg (1000 Unit) Tablet 50 Mcg PO HS TAKES 2 (25MCG) TABS Sertraline HCl 100 Mg Tablet 200 Mg PO HS TAKES 2 (100MG) TABS Neurontin (Gabapentin) 300 Mg Capsule 300 Mg PO HS Rosuvastatin Calcium 40 Mg Tablet 40 Mg PO HS Ondansetron Odt (Ondansetron) 8 Mg Tab.rapdis 8 Mg PO Q8H PRN Instructions to patient/family Please see electronic discharge instructions given to patient. Diagnosis/Problems Diagnosis/Problems (1) Cerebellar stroke (2) Atrial fibrillation by electrocardiogram Status: Acute (3) Stage 3b chronic kidney disease (CKD) Status: Acute (4) PTSD (post-traumatic stress disorder) Status: Chronic (5) T2DM (type 2 diabetes mellitus) Status: Acute Clinical Quality Measures Stroke: Date of last known well: Feb 17, 2023 SHERRY MASON DO Feb 22, 2023 16:09
--- NOTE | 2023-02-22 16:11 | D/C HH Face to Face Order ---
D/C HH Face to Face Orders Reconcile Patient Problems Problems Reviewed?: Yes Instructions for Patient HH Patient Instructions/FollowUp: PCP 1 week Physician to follow Patient: PCP Discharge Diet for Home: No Restrictions Patient Problems: TIA Patient Data-Allergies,Ht & Wt Patient Allergies: Coded Allergies: Penicillins (Verified Allergy, Unknown, 07/06/21) Home Health Need/Face to Face Date of Face to Face: Feb 22, 2023 Clinical Findings: Generalized weakness and fatigue, Instability, Muscle we akness I have seen Pt [id number]: Yes Discharged To: Home Diagnosis/Conditions: TIA Patient is Homebound due to: Seth fall risk due to instabilty Homebound Status Due to the above stated illness, injury or surgical procedure (medical condition or diagnosis) and associated clinical findings, the patient is homebound because of his/her inability to leave home except with aid of a suppo rtive device and/or person AND leaving the home requires a considerable and taxing effort or is medically contraindicated. Pt req the following assistanc: [facility] Nursing Orders Home Health Services Order: Nursing Services, Watch Band Assembler-Evaluate & Treat, Physical Therapy-Evaluate & Treat Home Health Infusion Therapy Line Start Date: Feb 20, 2023 Certify Stmt I certify that this patient is under my care and that I, a nurse practitioner or a physician; a diagnostic assistant working with me, had a face to face encounter that - meets the physician face to face encounter requirements with this patient as dated. SHERRY MASON DO Feb 22, 2023 16:11
[2023-02-22] MEDS ORDERED: MAGNESIUM OXIDE (MAG-OX)400 MG TAB PO SCH (21:00)
[2023-02-22] MEDS ORDERED: ROSUVASTATIN 20 MG (CRESTOR) TABLET PO SCH (21:00)
== END 2023-02-22 15:32 | disposition home health service (06) | DRG 69 ==
LOC: EDUNIT# 18:12 → ER 18:16 → ICU 22:39 → 4TH 02-21 15:34
PROVIDERS: ADMIT Internal Medicine; ATTEND Internal Medicine
DX: G45.9 Transient cerebral ischemic attack, unspecified (principal); I47.1 Supraventricular tachycardia; R47.1 Dysarthria and anarthria; R42 Dizziness and giddiness; H53.2 Diplopia; R29.701 NIHSS score 1; R26.81 Unsteadiness on feet; I16.0 Hypertensive urgency; I12.9 Hypertensive chronic kidney disease with stage 1 through stage 4 chronic kidney disease, or unspecified chronic kidney disease; N18.9 Chronic kidney disease, unspecified; E11.22 Type 2 diabetes mellitus with diabetic chronic kidney disease; E11.42 Type 2 diabetes mellitus with diabetic polyneuropathy; E78.00 Pure hypercholesterolemia, unspecified; K59.00 Constipation, unspecified; I07.1 Rheumatic tricuspid insufficiency; Z79.899 Other long term (current) drug therapy; Z88.0 Allergy status to penicillin
CPT/HCPCS: 36415; 70450; 70544; 70551; 71045; 80053; 80061; 81000; 82947; 83735; 84100; 84484; 85025; 85379; 85610; 85730; 87081; 93005; 93041; 93306; 93880; 94760

== ENCOUNTER 2023-04-11 12:51 | Emergency (ER) | payer MEDICARE, OTHER ==
[~2023-04-11] VITALS: Ht 172.7 cm; Wt 80.0 kg
[~2023-04-11 12:51] MED LIST changes: +AMLO5TAB4 PO; +ASPI-1238 PO; +CLOP75TA28 PO; +HYDR-3923 PO; +MTP25TSR PO
--- NOTE | 2023-04-11 13:16 | ED General ---
General Chief Complaint: General Problems/Pain Stated Complaint: DIZZINESS | WEAK | DOUBLE VISION Nursing Triage Note: PT AMB TO ED BY POV WITH C/O WEAKNESS AND DOUBLE VISION. PT REPORTS THIS IS THE SAME PROBLEM HE WAS SEEN FOR THE LAST TIME HE WAS HERE. PT REPORTS SX BEGAN YESTERDAY AFTERNOON AROUND 1500 WHILE VISITING HIS 'S GRAVE. PT REPORTS HE HAS HAD DIARRHEA AND WHITE X 2 DAYS. DENIES CP, SOB, DIFFICULTY URINATING. Source of Information: Patient Exam Limitations: No Limitations History of Present Illness Date Seen by Provider: April 11, 2023 Time Seen by Provider: 13:05 Initial Comments 77-year-old male presents to the emergency department today for blurred, double vision, lower extremity weakness. He was seen in February for similar symptoms and admitted and had a full work-up. Recommendation was he had a CTA, MRI and MRA of his head. He states yesterday afternoon he was driving home from visiting his 's grave and had acute onset of double vision, lower extremity weakness. His friend is at bedside and states when he went over to get him he was on the floor unable to Secondary to leg weakness. The patient states this is exactly the same presentation as when he was admitted here in February. No chest pain or shortness of breath. No difficulty breathing. No urinary symptoms. At the time of my evaluation his symptoms have remitted All other systems reviewed and negative except documented per HPI. Voice recognition software was used to help create this chart Allergies and Home Medications Allergies Coded Allergies: Penicillins (Verified Allergy, Unknown, 07/06/21) Patient Home Medication List Home Medication List Reviewed: Yes Amlodipine Besylate (Norvasc) 5 Mg Tablet, 5 MG PO DAILY Prescribed by: SHERRY MASON on 02/22/23 121 Aspirin (Aspirin EC) 81 Mg Tablet.dr, 81 MG PO DAILY Prescribed by: SHERRY MASON on 02/22/23 121 Cholecalciferol (Vitamin D3) (Vitamin D3) 25 Mcg (1000 Unit) Tablet, 50 MCG PO HS, (Reported) Entered as Reported by: SEJAL PAYNE on 02/07/23 155 Clopidogrel Bisulfate (Clopidogrel) 75 Mg Tablet, 75 MG PO DAILY Prescribed by: SHERRY MASON on 02/22/23 121 Gabapentin (Neurontin) 300 Mg Capsule, 300 MG PO HS, (Reported) Entered as Reported by: SEJAL PAYNE on 02/07/23 155 Hydralazine HCl (Hydralazine HCl) 25 Mg Tablet, 25 MG PO TID Prescribed by: SHERRY MASON on 02/22/23 1215 Insulin Glargine,Hum.rec.anlog (Lantus) 100 Unit/Ml Vial, 40 UNIT SQ HS, (Reported) Entered as Reported by: SEJAL PAYNE on 02/21/23 1605 Loperamide HCl (Loperamide) 2 Mg Capsule, 2 MG PO NEEDED PRN for DIARRHEA Prescribed by: PALMA CORNELL on 02/08/23 0943 Magnesium Oxide (Magnesium) 400 Mg Magnesium Tablet, 800 MG PO HS, (Reported) Entered as Reported by: SEJAL PAYNE on 02/07/23 155 Metoprolol Succinate (Metoprolol Succinate) 25 Mg Tab.er.24h, 25 MG PO DAILY Prescribed by: SHERRY MASON on 02/22/23 1215 Ondansetron (Ondansetron Odt) 8 Mg Tab.rapdis, 8 MG PO Q8H PRN for NAUSEA/VOMITING-1ST LINE, (Reported) Entered as Reported by: SEJAL PAYNE on 02/07/23 155 Rosuvastatin Calcium (Rosuvastatin Calcium) 40 Mg Tablet, 40 MG PO HS, (Reported) Entered as Reported by: SEJAL PAYNE on 02/07/23 155 Sertraline HCl (Sertraline HCl) 100 Mg Tablet, 200 MG PO HS, (Reported) Entered as Reported by: SEJAL PAYNE on 02/07/23 155 Sodium Bicarbonate (Sodium Bicarbonate) 650 Mg Tablet, 650 MG PO HS, (Reported) Entered as Reported by: SEJAL PAYNE on 02/21/23 1605 Review of Systems Review of Systems Constitutional: see HPI Past [id number]-Uorttn Hx Patient Social History Tobacco Use?: No Use of E-Cig and/or Vaping dev: No Substance use?: No Alcohol Use?: No Pt feels they are or have been: No Immunizations Up To Date Influenza Vaccine Up-to-Date: Yes; Up-to-Date First/Initial COVID19 Vaccinat: Second COVID19 Vaccination Calvin: April COVID19 Vaccination Date: APRIL Past Medical History Surgery/Hospitalization HX: PMH: PTSD, DM2, HTN, HIGH CHOL High Cholesterol, Hypertension Diabetes, Insulin dep PTSD Family Medical History No Pertinent Family Hx Physical Exam Vital Signs Vital Signs - First Documented 04/11/23 13:00 Temp 36.8 Pulse 91 Resp 14 B/P (MAP) 137/61 (86) Pulse Ox 94 O2 Delivery Room Air Capillary Refill : Less Than 3 Seconds Height, Weight, BMI Height: '" Weight: lbs. oz. kg; 26.00 BMI Method: General Appearance: No Apparent Distress, WD/WN HEENT: PERRL/EOMI, TMs Normal, Normal ENT Inspection, Pharynx Normal Neck: Full Range of Motion, Normal Inspection, Non Tender, Supple Respiratory: Chest Non Tender, Lungs Clear, Normal Breath Sounds, No Accessory Muscle Use, No Respiratory Distress Cardiovascular: Regular Rate, Rhythm, No Edema, No Murmur, Normal Peripheral Pulses Gastrointestinal: Normal Bowel Sounds, No Organomegaly, No Pulsatile Mass, Non Tender, Soft Extremity: Normal Capillary Refill, Normal Inspection, Normal Range of Motion, Non Tender, No Calf Tenderness, No Pedal Edema Neurologic/Psychiatric: Alert, Oriented x3, No Motor/Sensory Deficits, Normal Mood/Affect, software design 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 II-XII Norm as Tested Skin: Normal Color, Warm/Dry Progress/Results/Core Measures Suspected Sepsis SIRS Temperature: Pulse: 91 Respiratory Rate: 14 Laboratory Tests 04/11/23 13:25: White Blood Count 11.6H Blood Pressure 137 /61 Mean: 86 Laboratory Tests 04/11/23 13:25: Creatinine 1.96H, Platelet Count 173, Total Bilirubin 0.7 Results/Orders Lab Results Laboratory Tests Test 04/11/23 13:25 Range/Units White Blood Count 11.6 H 4.3-11.0 10^3/uL Red Blood Count 3.28 L 4.30-5.52 10^6/uL Hemoglobin 10.5 L 13.3-17.7 g/dL Hematocrit 32 L 40-54 % Mean Corpuscular Volume 97 80-99 fL Mean Corpuscular Hemoglobin 32 25-34 pg Mean Corpuscular Hemoglobin Concent 33 32-36 g/dL Red Cell Distribution Width 14.0 10.0-14.5 % Platelet Count 173 130-400 10^3/uL Mean Platelet Volume 8.9 L 9.0-12.2 fL Immature Granulocyte % (Auto) 0 % Neutrophils (%) (Auto) 84 H 42-75 % Lymphocytes (%) (Auto) 11 L 12-44 % Monocytes (%) (Auto) 4 0-12 % Eosinophils (%) (Auto) 0 0-10 % Basophils (%) (Auto) 0 0-10 % Neutrophils # (Auto) 9.7 H 1.8-7.8 10^3/uL Lymphocytes # (Auto) 1.3 1.0-4.0 10^3/uL Monocytes # (Auto) 0.5 0.0-1.0 10^3/uL Eosinophils # (Auto) 0.0 0.0-0.3 10^3/uL Basophils # (Auto) 0.0 0.0-0.1 10^3/uL Immature Granulocyte # (Auto) 0.0 0.0-0.1 10^3/uL Sodium Level 140 135-145 MMOL/L Potassium Level 3.9 3.6-5.0 MMOL/L Chloride Level 111 H 98-107 MMOL/L Carbon Dioxide Level 20 L 21-32 MMOL/L Anion Gap 9 5-14 MMOL/L Blood Urea Nitrogen 28 H 7-18 MG/DL Creatinine 1.96 H 0.60-1.30 MG/DL Estimat Glomerular Filtration Rate 35 BUN/Creatinine Ratio 14 Glucose Level 145 H 70-105 MG/DL Calcium Level 9.1 8.5-10.1 MG/DL Corrected Calcium 9.4 8.5-10.1 MG/DL Magnesium Level 1.6 1.6-2.4 MG/DL Total Bilirubin 0.7 0.1-1.0 MG/DL Aspartate Amino Transf (AST/SGOT) 55 H 5-34 U/L Alanine Aminotransferase (ALT/SGPT) 55 0-55 U/L Alkaline Phosphatase 84 40-136 U/L Total Protein 6.8 6.4-8.2 GM/DL Albumin 3.6 3.2-4.5 GM/DL My Orders Orders - MARCUS YATES DO Cbc With Automated Diff (04/11/23 13:15) Comprehensive Metabolic Panel (04/11/23 13:15) Magnesium (04/11/23 13:15) Ct Head Wo (04/11/23 ) Vital Signs/I&O 04/11/23 13:00 Temp 36.8 Pulse 91 Resp 14 B/P (MAP) 137/61 (86) Pulse Ox 94 O2 Delivery Room Air Capillary Refill : Less Than 3 Seconds Blood Pressure Mean: 86 Departure Communication (Admissions) Patient is hemodynamically stable. Symptoms have resolved at the time of presentation. This seems to be recurrent. I spoke with Dr. Gonzalez at [facility]. He recommends MRI of his entire spine with and without contrast she states this can be done as an outpatient basis or if he wanted to be transferred they can probably get it taken care of sooner if she is looking a couple of months out. [facility] has no capacity for transfer at this time. I gave the patient the option of transferring to another facility versus go home and he opted to go home. He has no focal deficits at this time and his vision symptoms have resolved. CT scan is negative for any acute findings. CTA foregone due to his renal function and recent MRA that was negative. Patient discharged in stable condition with close follow-up. Impression Primary Impression: Leg weakness, bilateral Additional Impression: Double vision Disposition: 01 HOME, SELF-CARE Condition: Stable Departure-Patient Inst. Referrals: NO,LOCAL PHYSICIAN (PCP) Primary Care Physician Patient Instructions: Double Vision (DC) Add. Discharge Instructions: As discussed I spoke with a neurologist at [facility], Dr. Gonzalez. Unfortunately do not have capacity for transfer at this time. She stated that we can either try to find another hospital to send you to you or that you could follow-up with her in the clinic knowing that it might be a couple of months before she can get you in. You have opted to follow-up in clinic. Her contact information has been provided below. Please call to schedule an appointment. You are welcome to call another neurologist around as well to see if any can get you in sooner. Return to the emergency department for any severe concerns or if your symptoms change in any way concerning to you. Follow-up with your primary doctor for any nonemergent needs. Krystal Collier [address], [place] [address] All discharge instructions reviewed with patient and/or family. Voiced understanding. MARCUS YATES DO April 11, 2023 13:16
[2023-04-11 13:31] LABS: BASOPHILS % (AUTO) 0 % (0-10); EOSINOPHILS % (AUTO) 0 % (0-10); HEMATOCRIT 32 % (40-54); HEMOGLOBIN 10.5 g/dL (13.3-17.7); LYMPHOCYTES # (AUTO) 1.3 10^3/uL (1.0-4.0); LYMPHOCYTES % (AUTO) 11 % (12-44); MEAN CORPUSCULAR HEMOGLOBIN 32 pg (25-34); MEAN CORPUSCULAR HGB CONC 33 g/dL (32-36); MEAN CORPUSCULAR VOLUME 97 fL (80-99); MEAN PLATELET VOLUME 8.9 fL (9.0-12.2); MONOCYTES # (AUTO) 0.5 10^3/uL (0.0-1.0); MONOCYTES % (AUTO) 4 % (0-12); NEUTROPHILS # (AUTO) 9.7 10^3/uL (1.8-7.8); NEUTROPHILS % (AUTO) 84 % (42-75); PLATELET COUNT 173 10^3/uL (130-400); WHITE BLOOD COUNT 11.6 10^3/uL (4.3-11.0)
[2023-04-11 13:42] LABS: ALBUMIN 3.6 GM/DL (3.2-4.5); POTASSIUM 3.9 MMOL/L (3.6-5.0)
[2023-04-11 13:43] LABS: CALCIUM 9.1 MG/DL (8.5-10.1)
[2023-04-11 13:44] LABS: TOTAL PROTEIN 6.8 GM/DL (6.4-8.2)
[2023-04-11 13:46] LABS: BILIRUBIN,TOTAL 0.7 MG/DL (0.1-1.0)
[2023-04-11 13:48] LABS: CREATININE SERUM 1.96 MG/DL (0.60-1.30)
[2023-04-11 13:51] LABS: MAGNESIUM 1.6 MG/DL (1.6-2.4)
--- NOTE | 2023-04-11 14:09 | Diagnostic Imaging Report ---
PROCEDURE: CT head without contrast. TECHNIQUE: Multiple contiguous axial images were obtained through the brain without the use of intravenous contrast. Auto Exposure Controls were utilized during the CT exam to meet ALARA standards for radiation dose reduction. INDICATION: Dizziness and unsteady gait. COMPARISON: Comparison is made with prior head CT from 02/20/2023. FINDINGS: The ventricular size and sulcal pattern appear to be stable. No sulcal effacement or midline shift is identified. No acute intra-axial or extra-axial hemorrhage is detected. Cisterns are patent. The visualized paranasal sinuses are clear. IMPRESSION: No acute intracranial process is detected. Dictated by: Dictated on workstation # [id number]
[2023-04-11 14:46] VITALS: BP 144/80
== END 2023-04-11 14:55 | disposition home or self-care (01) ==
LOC: EDUNIT# 12:51 → ER 12:55
DX: H53.2 Diplopia (principal); M62.81 Muscle weakness (generalized); E11.9 Type 2 diabetes mellitus without complications; Z79.4 Long term (current) use of insulin; Z28.311 Partially vaccinated for COVID-19
CPT/HCPCS: 36415; 70450; 80053; 83735; 85025

== ENCOUNTER 2023-07-06 08:39 | Emergency (ER) | payer OTHER ==
[2023-07-06] MEDS ORDERED: NS IV 500 ML 500 ML IV STA (09:05)
--- NOTE | 2023-07-06 09:12 | ED General ---
General Chief Complaint: Dizziness/Syncope Stated Complaint: LIGHTHEADED | DIZZY | WEAKNESS Nursing Triage Note: PT AMB TO RM 6 WITH C/O DIZZINESS, VOMITTING, WEAKNESS AND WHITE SINCE YESTERDAY Source of Information: Patient, Old Records Exam Limitations: No Limitations History of Present Illness Date Seen by Provider: Jul 06, 2023 Time Seen by Provider: 08:43 Initial Comments 78-year-old male with past medical history of hypertension, hyperlipidemia, diabetes coming in due to feeling lightheaded, vomiting yesterday, generally weak, and headache since yesterday. He states he is having difficulty walking because he feels so weak, nothing focal. He has not really had anything to eat or drink, has not vomited since last night. Denies any significant chest pain, shortness of breath, abdominal pain, focal weakness or numbness, vision changes, or any other concerns. He has not taken his medicines yet this morning. Allergies and Home Medications Allergies Coded Allergies: Penicillins (Verified Allergy, Unknown, 07/06/21) Patient Home Medication List Home Medication List Reviewed: Yes Amlodipine Besylate (Norvasc) 5 Mg Tablet, 5 MG PO DAILY Prescribed by: SHERRY MASON on 02/22/231214 Aspirin (Aspirin EC) 81 Mg Tablet.dr, 81 MG PO DAILY Prescribed by: SHERRY MASON on 02/22/23 121 Cholecalciferol (Vitamin D3) (Vitamin D3) 25 Mcg (1000 Unit) Tablet, 50 MCG PO HS, (Reported) Entered as Reported by: SEJAL PAYNE on 02/07/23 1552 Clopidogrel Bisulfate (Clopidogrel) 75 Mg Tablet, 75 MG PO DAILY Prescribed by: SHERRY MASON on 02/22/23 121 Gabapentin (Neurontin) 300 Mg Capsule, 300 MG PO HS, (Reported) Entered as Reported by: SEJAL PAYNE on 02/07/23 1552 Hydralazine HCl (Hydralazine HCl) 25 Mg Tablet, 25 MG PO TID Prescribed by: SHERRY MASON on 02/22/23 121 Insulin Glargine,Hum.rec.anlog (Lantus) 100 Unit/Ml Vial, 40 UNIT SQ HS, (Reported) Entered as Reported by: SEJAL PAYNE on 02/21/23 1605 Loperamide HCl (Loperamide) 2 Mg Capsule, 2 MG PO NEEDED PRN for DIARRHEA Prescribed by: PALMA CORNELL on 02/08/23 0943 Magnesium Oxide (Magnesium) 400 Mg Magnesium Tablet, 800 MG PO HS, (Reported) Entered as Reported by: SEJAL PAYNE on 02/07/23 1552 Metoprolol Succinate (Metoprolol Succinate) 25 Mg Tab.er.24h, 25 MG PO DAILY Prescribed by: SHERRY MASON on 02/22/23 1215 Ondansetron (Ondansetron Odt) 8 Mg Tab.rapdis, 8 MG PO Q8H PRN for NAUSEA/VOMITING-1ST LINE, (Reported) Entered as Reported by: SEJAL PAYNE on 02/07/23 1552 Ondansetron (Ondansetron Odt) 4 Mg Tab.rapdis, 4 MG SL Q6H PRN for NAUSEA/VOMITING Prescribed by: LES CABRERA on 07/06/23 1009 Rosuvastatin Calcium (Rosuvastatin Calcium) 40 Mg Tablet, 40 MG PO HS, (Reported) Entered as Reported by: SEJAL PAYNE on 02/07/23 1552 Sertraline HCl (Sertraline HCl) 100 Mg Tablet, 200 MG PO HS, (Reported) Entered as Reported by: SEJAL PAYNE on 02/07/23 1552 Sodium Bicarbonate (Sodium Bicarbonate) 650 Mg Tablet, 650 MG PO HS, (Reported) Entered as Reported by: SEJAL PAYNE on 02/21/23 1605 Review of Systems Review of Systems Constitutional: No fever; weakness EENTM: no symptoms reported Respiratory: no symptoms reported Cardiovascular: no symptoms reported Gastrointestinal: see HPI Genitourinary: no symptoms reported Musculoskeletal: no symptoms reported Skin: no symptoms reported Psychiatric/Neurological: See HPI Hematologic/Lymphatic: No Symptoms Reported Past Klronoj-Wueqjh-Jipeee Hx Patient Social History Tobacco Use?: No Use of E-Cig and/or Vaping dev: No Substance use?: No Alcohol Use?: No Immunizations Up To Date First/Initial COVID19 Vaccinat: X1 Second COVID19 Vaccination Calvin: X1 Third COVID19 Vaccination Date: X1 Past Medical History Surgery/Hospitalization HX: PMH: PTSD, DM2, HTN, HIGH CHOL, AFIB EX LAP FROM SHRAPNEL, R WRIST SURG, R ELBOW High Cholesterol, Hypertension Diabetes, Insulin dep PTSD Family Medical History No Pertinent Family Hx Physical Exam Vital Signs Vital Signs - First Documented 07/06/23 08:43 Temp 37.0 Pulse 44 Resp 14 B/P (MAP) 119/60 (79) Pulse Ox 95 O2 Delivery Room Air Capillary Refill : Height, Weight, BMI Height: '" Weight: lbs. oz. kg; 26.00 BMI Method: General Appearance: No Apparent Distress, WD/WN Eyes: Bilateral Eye Normal Inspection, Bilateral Eye PERRL, Bilateral Eye EOMI HEENT: PERRL/EOMI, Normal ENT Inspection, Pharynx Normal Neck: Full Range of Motion, Normal Inspection, Non Tender, Supple Respiratory: Chest Non Tender, Lungs Clear, Normal Breath Sounds, No Accessory Muscle Use, No Respiratory Distress Cardiovascular: No Edema, Bradycardia Gastrointestinal: Normal Bowel Sounds, Non Tender, Soft; No Distended, No Guarding Back: Normal Inspection, No CVA Tenderness Extremity: Normal Capillary Refill, Normal Inspection, Normal Range of Motion, Non Tender, No Calf Tenderness, No Pedal Edema Neurologic/Psychiatric: Alert, Oriented x3, No Motor/Sensory Deficits, Normal Mood/Affect, scale tester II-XII Norm as Tested, Other (Normal [id number]) Skin: Normal Color, Warm/Dry Progress/Results/Core Measures Suspected Sepsis SIRS Temperature: Pulse: 44 Respiratory Rate: 14 Laboratory Tests 07/06/23 08:50: White Blood Count 8.6 Blood Pressure 119 /60 Mean: 79 Laboratory Tests 07/06/23 08:50: Creatinine 2.15H, INR Comment 1.1, Platelet Count 187, Total Bilirubin 0.6 Results/Orders Lab Results Laboratory Tests Test 07/06/23 08:50 07/06/23 09:11 Range/Units White Blood Count 8.6 4.3-11.0 10^3/uL Red Blood Count 3.34 L 4.30-5.52 10^6/uL Hemoglobin 10.4 L 13.3-17.7 g/dL Hematocrit 32 L 40-54 % Mean Corpuscular Volume 95 80-99 fL Mean Corpuscular Hemoglobin 31 25-34 pg Mean Corpuscular Hemoglobin Concent 33 32-36 g/dL Red Cell Distribution Width 13.5 10.0-14.5 % Platelet Count 187 130-400 10^3/uL Mean Platelet Volume 10.3 9.0-12.2 fL Immature Granulocyte % (Auto) 0 % Neutrophils (%) (Auto) 56 42-75 % Lymphocytes (%) (Auto) 34 12-44 % Monocytes (%) (Auto) 8 0-12 % Eosinophils (%) (Auto) 1 0-10 % Basophils (%) (Auto) 1 0-10 % Neutrophils # (Auto) 4.8 1.8-7.8 10^3/uL Lymphocytes # (Auto) 2.9 1.0-4.0 10^3/uL Monocytes # (Auto) 0.7 0.0-1.0 10^3/uL Eosinophils # (Auto) 0.1 0.0-0.3 10^3/uL Basophils # (Auto) 0.1 0.0-0.1 10^3/uL Immature Granulocyte # (Auto) 0.0 0.0-0.1 10^3/uL Prothrombin Time 14.5 12.2-14.7 SEC INR Comment 1.1 0.8-1.4 Activated Partial Thromboplast Time 32 24-35 SEC Sodium Level 140 135-145 MMOL/L Potassium Level 4.0 3.6-5.0 MMOL/L Chloride Level 108 H 98-107 MMOL/L Carbon Dioxide Level 22 21-32 MMOL/L Anion Gap 10 5-14 MMOL/L Blood Urea Nitrogen 34 H 7-18 MG/DL Creatinine 2.15 H 0.60-1.30 MG/DL Estimat Glomerular Filtration Rate 31 BUN/Creatinine Ratio 16 Glucose Level 130 H 70-105 MG/DL Calcium Level 9.0 8.5-10.1 MG/DL Corrected Calcium 9.3 8.5-10.1 MG/DL Magnesium Level 1.9 1.6-2.4 MG/DL Total Bilirubin 0.6 0.1-1.0 MG/DL Aspartate Amino Transf (AST/SGOT) 98 H 5-34 U/L Alanine Aminotransferase (ALT/SGPT) 85 H 0-55 U/L Alkaline Phosphatase 108 40-136 U/L Troponin I < 0.028 <0.028 NG/ML B-Type Natriuretic Peptide 113.2 H <100.0 PG/ML Total Protein 7.0 6.4-8.2 GM/DL Albumin 3.6 3.2-4.5 GM/DL Lipase 39 8-78 U/L Thyroid Stimulating Hormone (TSH) 1.95 0.35-4.94 UIU/ML Influenza Type A (RT-PCR) Not Detected Not Detecte Influenza Type B (RT-PCR) Not Detected Not Detecte SARS-CoV-2 RNA (RT-PCR) Not Detected Not Detecte My Orders Orders - LES CABRERA MD Ekg Tracing (07/06/23 08:47) Cbc With Automated Diff (07/06/23 09:05) Magnesium (07/06/23 09:05) Chest 1 View, Ap/Pa Only (07/06/23 09:05) Comprehensive Metabolic Panel (07/06/23 09:05) Protime With Inr (07/06/23 09:05) Partial Thromboplastin Time (07/06/23 09:05) O2 (07/06/23 09:05) Monitor-Rhythm Ecg Trace Only (07/06/23 09:05) Ed Iv/Invasive Line Start (07/06/23 09:05) Lipase (07/06/23 09:05) Bnp Rola (07/06/23 09:05) Troponin I Rola (07/06/23 09:05) Aspirin Chewable Tablet (Aspirin Chewabl (07/06/23 09:15) Thyroid Stimulating Hormone (07/06/23 09:05) Influenza A And B By Pcr (07/06/23 09:05) Covid 19 Inhouse Test (07/06/23 09:05) Ns Iv 500 Ml (Ns Iv 500 Ml) (07/06/23 09:05) Acetaminophen Tablet (Acetaminophen Ta (07/06/23 09:15) Ondansetron Injection (Ondansetron Inj (07/06/23 09:15) Clopidogrel Tablet (Clopidogrel Tablet) (07/06/23 09:15) Atropine Injection (Atropine Injection) (07/06/23 09:45) Medications Given in ED Current Medications Medications Dose Ordered Sig/Maribel Route Start Time Stop Time Status Last Admin Dose Admin Acetaminophen 1,000 mg ONCE ONCE PO 07/06/23 09:15 07/06/23 09:16 DC 07/06/23 09:14 1,000 MG Aspirin 324 mg ONCE ONCE PO 07/06/23 09:15 07/06/23 09:16 DC 07/06/23 09:13 324 MG Atropine Sulfate 0.4 mg ONCE ONCE IV 07/06/23 09:45 07/06/23 09:46 DC 07/06/23 09:52 0.4 MG Clopidogrel Bisulfate 75 mg ONCE ONCE PO 07/06/23 09:15 07/06/23 09:16 DC 07/06/23 09:14 75 MG Ondansetron HCl 4 mg ONCE ONCE IVP 07/06/23 09:15 07/06/23 09:16 DC 07/06/23 09:13 4 MG Vital Signs/I&O 07/06/23 08:43 Temp 37.0 Pulse 44 Resp 14 B/P (MAP) 119/60 (79) Pulse Ox 95 O2 Delivery Room Air Capillary Refill : Blood Pressure Mean: 79 Progress Note : Progress Note 78-year-old male coming in due to general weakness after vomiting last night. ABCs were intact and vitals were stable on presentation. Physical exam with a soft and nontender abdomen. He is currently well-appearing, not vomiting. He is ambulating around the room. Likely is dehydrated due to the vomiting. An IV was placed and he was given a gentle bolus of IV fluids. EKG ordered and interpreted by me showing sinus bradycardia with no STEMI. Chest x-ray ordered and interpreted by me showing no obvious pneumonia. Labs were drawn and were significant for normal white blood cell count, creatinine around 2.1 which is near his baseline where he bounces around and follows with a director product management in [facility]. His troponin is negative, TSH normal, flu and COVID-negative as well. He was bradycardic on arrival to the 40s and 50s. He was not orthostatic when I stood him up and took his blood pressure. Trial atropine to see if that would raise his heart rate, did go up to about 60. He is on metoprolol which likely is the culprit. On reassessment, however, he is now asymptomatic, feeling well, ambulating around the room without lightheadedness, and now technically this would be asymptomatic bradycardia. I will have him follow-up with her auto wrecker here in regards to it. Patient would like to go home, I believe he is stable for discharge with outpatient follow-up. He was sent home with strict return precautions. ECG Initial ECG Impression Date: Jul 06, 2023 Initial ECG Impression Time: 08:51 Initial ECG Rate: 44 Initial ECG Rhythm: S.Ozzy Comment Narrow QRS, normal axis, no STEMI, compared to prior EKG is slower Diagnostic Imaging Diagonstic Imaging: Xray (chest) Comments [facility] [place], [place] NAME: FILIPE FARRELL [facility] REC#: [id number] PT STATUS: REG ER : 1945 PHYSICIAN: LES CABRERA MD ADMIT DATE: 07/06/23/ER Draft Date of Exam:07/06/23 CHEST 1 VIEW, AP/PA ONLY EXAMINATION: Chest 1 view HISTORY: Chest pain COMPARISON: 02/20/2023 FINDINGS: The lungs are clear without edema or pneumonia. No pleural effusion or pneumothorax. Heart size is normal. IMPRESSION: 1. Clear lungs. Dictated on workstation # [id number] Dict: 07/06/23 0937 Trans: 07/06/23 0939 [id number] Interpreted by: ANGELICA ROSS MD Electronically signed by: Departure Impression Primary Impression: Vomiting in adult Additional Impressions: Mild dehydration Asymptomatic bradycardia Disposition: HOME, SELF-CARE Condition: Improved Departure-Patient Inst. Decision time for Depature: 10:15 Referrals: NOLVIA NOEL DO (PCP) Primary Care Physician BEVERLY FERNÁNDEZ MD Patient Instructions: Nausea and Vomiting, Adult ED, Bradycardia Add. Discharge Instructions: You likely had a viral illness causing the vomiting which will improve. Nausea medicines were sent to your pharmacy. Please follow-up with Dr. Fernández, the auto wrecker here in [place]. His number is in this paperwork for you to call and schedule an appointment. This is due to your heart rate being low. When you take your blood pressure at home, also check your heart rate, and if your blood pressure is low with your heart rate being low then we would want you to call 911. Scripts Ondansetron (Ondansetron Odt) 4 Mg Tab.rapdis 4 MG SL Q6H PRN for NAUSEA/VOMITING for 5 Days, #20 TAB Prov: LES CABRERA MD 07/06/23 LES CABRERA MD Jul 06, 2023 09:12
[2023-07-06] MEDS ORDERED: ACETAMINOPHEN 500 MG TABLET PO ONE (09:15)
[2023-07-06] MEDS ORDERED: ONDANSETRON INJECTION 4 MG/2 ML (SDV) IVP ONE (09:15)
[2023-07-06] MEDS ORDERED: CLOPIDOGREL 75 MG TABLET PO ONE (09:15)
[2023-07-06] MEDS ORDERED: ASPIRIN 81 MG CHEWABLE TABLET PO ONE (09:15)
[2023-07-06 09:20] LABS: ALBUMIN 3.6 GM/DL (3.2-4.5)
[2023-07-06 09:21] LABS: CHLORIDE 108 MMOL/L (98-107); SODIUM 140 MMOL/L (135-145)
[2023-07-06 09:23] LABS: GLUCOSE 130 MG/DL (70-105)
[2023-07-06 09:24] LABS: CARBON DIOXIDE 22 MMOL/L (21-32)
[2023-07-06 09:25] LABS: BILIRUBIN,TOTAL 0.6 MG/DL (0.1-1.0)
[2023-07-06 09:26] LABS: ALKALINE PHOSPHATASE 108 U/L (40-136)
[2023-07-06 09:27] LABS: CREATININE SERUM 2.15 MG/DL (0.60-1.30); GFR ESTIMATED 31
[2023-07-06 09:28] LABS: BUN/CREATININE RATIO 16
[2023-07-06 09:29] LABS: ALANINE AMINOTRANSFERASE 85 U/L (0-55)
[2023-07-06 09:30] LABS: MAGNESIUM 1.9 MG/DL (1.6-2.4)
[2023-07-06 09:31] LABS: LIPASE 39 U/L (8-78)
--- NOTE | 2023-07-06 09:39 | Diagnostic Imaging Report ---
EXAMINATION: Chest 1 view HISTORY: Chest pain COMPARISON: 02/20/2023 FINDINGS: The lungs are clear without edema or pneumonia. No pleural effusion or pneumothorax. Heart size is normal. IMPRESSION: 1. Clear lungs. Dictated by: Dictated on workstation # [id number]
[2023-07-06 09:40] LABS: BASOPHILS # (AUTO) 0.1 10^3/uL (0.0-0.1); BASOPHILS % (AUTO) 1 % (0-10); EOSINOPHILS # (AUTO) 0.1 10^3/uL (0.0-0.3); EOSINOPHILS % (AUTO) 1 % (0-10); HEMATOCRIT 32 % (40-54); HEMOGLOBIN 10.4 g/dL (13.3-17.7); LYMPHOCYTES # (AUTO) 2.9 10^3/uL (1.0-4.0); LYMPHOCYTES % (AUTO) 34 % (12-44); MEAN CORPUSCULAR HEMOGLOBIN 31 pg (25-34); MEAN CORPUSCULAR HGB CONC 33 g/dL (32-36); MEAN CORPUSCULAR VOLUME 95 fL (80-99); MEAN PLATELET VOLUME 10.3 fL (9.0-12.2); MONOCYTES # (AUTO) 0.7 10^3/uL (0.0-1.0); MONOCYTES % (AUTO) 8 % (0-12); NEUTROPHILS # (AUTO) 4.8 10^3/uL (1.8-7.8); NEUTROPHILS % (AUTO) 56 % (42-75); PLATELET COUNT 187 10^3/uL (130-400); WHITE BLOOD COUNT 8.6 10^3/uL (4.3-11.0)
[2023-07-06 09:45] LABS: INR 1.1 (0.8-1.4); PROTHROMBIN TIME PATIENT 14.5 SEC (12.2-14.7)
[2023-07-06] MEDS ORDERED: ATROPINE INJ 0.4 MG/ML SDV IV ONE (09:45)
[2023-07-06] MEDS ORDERED: ONDA4TAB11 SL (10:09)
[2023-07-06 10:22] VITALS: BP 114/57
== END 2023-07-06 10:28 | disposition home or self-care (01) ==
LOC: EDUNIT# 08:39 → ER 08:41
DX: R11.10 Vomiting, unspecified (principal); E86.0 Dehydration; R00.1 Bradycardia, unspecified; E11.9 Type 2 diabetes mellitus without complications; Z79.4 Long term (current) use of insulin; Z28.311 Partially vaccinated for COVID-19; Z20.822 Contact with and (suspected) exposure to COVID-19
CPT/HCPCS: 36415; 71045; 80053; 83690; 83735; 83880; 84443; 84484; 85025; 85610; 85730; 87636; 93005; 93041

== ENCOUNTER → 2023-10-16 | Outpatient (CLI) | payer OTHER ==
[~2023-10-16] MED LIST changes: +ONDA4TAB11 SL
--- NOTE | 2023-10-16 16:32 | Diagnostic Imaging Report ---
EXAMINATION: US Retroperitoneal Complete. TECHNIQUE: Multiple real-time grayscale images were obtained over the kidneys in various projections bilaterally. HISTORY: Chronic kidney disease COMPARISON: None available. FINDINGS: The right kidney demonstrates normal echogenicity and cortical thickness. The right kidney measures 8.9 x 4.1 x 5.5 cm. No hydronephrosis. There is a 1.8 cm simple right renal cyst which requires no followup. The left kidney demonstrates normal echogenicity and cortical thickness. The left kidney measures 8.0 x 4.7 x 4.5 cm. No hydronephrosis. The urinary bladder is normal. Bilateral ureteral jets are seen. The post void volume is 18.6 ml. IMPRESSION: 1. Unremarkable kidneys without hydronephrosis. 2. Small post void residual volume of 18.6 mL. Dictated by: Dictated on workstation # [id number]
== END ==
LOC: RAD 14:19
PROVIDERS: ATTEND Internal Medicine Nephrology
DX: N18.32 Chronic kidney disease, stage 3b (principal)
CPT/HCPCS: 76770